=== PATIENT | male | born 1950 | race Caucasian/White ===

== ENCOUNTER 2016-07-04 12:56 | Inpatient (IN) | payer MEDICARE ==
[~2016-07-04] VITALS: Ht 193 cm; Wt 163.6 kg
[~2016-07-04 12:56] MED LIST: ASPIRIN325 MG PO; CARDIZEM CD240 MG PO; CARDIZEM SR90 MG PO; CELEXA40 MG PO; CLEOCIN HCL150 MG PO; CLONAZEPAM2 MG/TAB PO; COLACE100 MG PO; COREG 3.1253.125 MG PO; COUMADIN10 MG PO; ELIQUIS2.5 MG PO; FLOMAX0.4 MG PO; HYDROCODON-ACE1 EAC7 PO; HYDROCODONE-APA1 TAB PO; HYTRIN5 MG PO; LIPITOR20 MG PO; MORPHINE SULFAT15 M4 PO; MS CONTIN15 MG PO; MS CONTIN30 MG PO; NAPROSYN500 MG PO; NEURONTIN 300300 MG PO; OXYCODONE HCL10 MG PO; OXYCODONE HCL5 MG PO; STOOL SOFTENER240 MG PO; TOPROL XL100 MG PO; TRAZODONE HCL50 MG PO; UROCIT-K10 MEQ PO; VANCOMYCIN H1 G/VIA1 IV; VENTOLIN HFA18 GM INH
[2016-07-04 16:45] LABS: BASOPHILS 0.2 % (0.0-2.0); EOSINOPHILS 1.5 % (0-7); HEMATOCRIT 39.1 % (42.0-54.0); HEMOGLOBIN 12.4 g/dL (13.5-17.5); IMMATURE GRANULOCYTES 0.1 % (0-5); LYMPHOCYTES 14.1 % (15-50); MCH 26.7 pg (26.0-34.0); MCHC 31.7 g/dL (31.0-37.0); MCV 84.3 fL (80.0-100.0); MEAN PLATELET VOLUME 9.7 fL (7.4-10.4); NEUTROPHILS 74.1 % (40-80); PLATELET COUNT 249 10x3/uL (130-400); RBC 4.64 10x6/uL (4.20-6.10); RDW 16.6 % (11.5-14.5); WBC 8.6 10x3/uL (4.8-10.8)
[2016-07-04 17:07] LABS: APTT 21.2 SECONDS (22.8-39.4)
[2016-07-04 17:08] LABS: INR 1.08 (0.85-1.17); PROTIME 13.8 SECONDS (11.6-15.0)
[2016-07-04 17:23] LABS: ALBUMIN 4.3 g/dL (3.4-5.0); ALKALINE PHOSPHATASE 103 U/L (46-116); ALT (SGPT) 25 U/L (10-68); BILIRUBIN - TOTAL 0.52 mg/dL (0.2-1.3); CALC OSMOLALITY 278 mosm/kg (275-300); CALCIUM 8.5 mg/dL (8.5-10.1); CARBON DIOXIDE 29.5 mmol/L (21.0-32.0); CHLORIDE - SERUM 102 mmol/L (98-107); CREATININE - SERUM 0.9 mg/dL (0.6-1.3); POTASSIUM - SERUM 4.1 mmol/L (3.5-5.1); PROTEIN - SERUM 7.8 g/dL (6.4-8.2); SODIUM 141 mmol/L (136-145); UREA NITROGEN 11 mg/dL (7-18); eGFR NON AFRICAN AMERICAN 89 mL/min (90-120)
[2016-07-04 17:38] LABS: GLUCOSE 79 mg/dL (74-106)
--- NOTE | 2016-07-04 18:10 | NUR ---
RECIEVED PATIENT VIA WHEELCHAIR. WITH MINIMAL ASSIST PATIENT TRANSFERED FROM THE WHEELCHAIR TO THE BED. PATIENT IS NOT EXPRESSING ANY EVIDENCE OF PAIN, NO FACIAL GRIMMACING. RESPIRATIONS ARE EVEN AND UNLABORED ON ROOM AIR. PATIENT SAT DOWN ON THE SIDE OF THE BED AND STARTED EATING DINNER. INTRODUCED SELF TO PATIENT. ASKED HIM ABOUT HIS PAIN, HE STATED "IT IS STILL ABOUT A 7." PATIENT HAS AN EDUARDO WRAP AROUND RIGHT FOOT AND ANKLE. PATIENT DENIES NEEDS. BED IN LOWEST POSITION, CALL LIGHT IN REACH. BED RAILS UP X'S 2.
[2016-07-04 19:00] VITALS: BP 142/73
--- NOTE | 2016-07-04 19:25 | NUR ---
RECIEVED SHIFT REPORT. PT IS LYING IN BED. ALERT AND ORIENTED AND ABLE TO VERBALIZE NEEDS. IV IS PATENT AND LR RUNNING FROM ER. DRESSING TO RIGHT LOWER LEG C/D/I. PT IS ABLE TO TURN SELF IN BED FOR COMFORT AND SKIN CARE. I INSTRUCTED PT THAT UNTIL HE HAS SEEN THE DOCTOR MAYBE IT WOULD BE BETTER IF HE HAS BEDREST FOR TONIGHT. PT STATES PAIN IS 10/10. PT PROVIDED WITH CLEAN URINAL AND INSTRUCTIONS TO VOID IN IT FOR A SAMPLE TO BE SENT TO THE LAB. VERBALIZED UNDERSTANDING. NO NEEDS ARE VERBALIZED AT THIS TIME. WILL CONTINUE TO MONITOR. SIDE RAILS ARE UP X 2. BED IS IN LOWEST POSITION. CALL LIGHT IS WITHIN REACH.
[2016-07-04 19:38] VITALS: BP 164/89; Ht 193 cm; Wt 163.6 kg
--- NOTE | 2016-07-04 21:00 | NUR ---
SHIFT ASSESSMENT COMPLETED. PT C/O PAIN 02/20. ADMINISTERED PRESCRIBED PRN DILAUDID PER ORDER. DENIES FURTHER NEEDS. WILL MONITOR. SIDE RAILS X 2. BED LOW. CALL LIGHT IN REACH.
--- NOTE | 2016-07-04 21:28 | NUR ---
URINE SENT TO LAB FOR WARRENTED TESTS.
[2016-07-04 22:13] LABS: APPEARANCE CLEAR (CLEAR); BILIRUBIN NEGATIVE (NEGATIVE); COLOR YELLOW (YELLOW); GLUCOSE NEGATIVE (NEGATIVE); KETONE NEGATIVE (NEGATIVE); LEUKOCYTE ESTERASE NEGATIVE (NEGATIVE); NITRITE NEGATIVE (NEGATIVE); PROTEIN NEGATIVE (NEGATIVE); SPECIFIC GRAVITY 1.015 (1.005-1.020); UROBILINOGEN NORMAL (NORMAL)
[2016-07-05] VITALS: BP 139/74
[2016-07-05] MEDS ORDERED: GLUCOPHAGE500 MG PO (00:18)
[2016-07-05 04:00] VITALS: BP 141/80
[2016-07-05 08:15] VITALS: BP 126/60
[2016-07-05] MEDS ORDERED: ELIQUIS2.5 MG PO (08:58)
[2016-07-05 10:48] LABS: BASOPHILS 0.3 % (0.0-2.0); EOSINOPHILS 2.6 % (0-7); HEMATOCRIT 39.2 % (42.0-54.0); HEMOGLOBIN 12.1 g/dL (13.5-17.5); IMMATURE GRANULOCYTES 0.3 % (0-5); MCH 26.6 pg (26.0-34.0); MCHC 30.9 g/dL (31.0-37.0); MCV 86.2 fL (80.0-100.0); MEAN PLATELET VOLUME 9.4 fL (7.4-10.4); MONOCYTES 11.5 % (2-11); NEUTROPHILS 64.3 % (40-80); PLATELET COUNT 206 10x3/uL (130-400); RBC 4.55 10x6/uL (4.20-6.10); RDW 16.8 % (11.5-14.5)
[2016-07-05 10:56] LABS: WBC 5.8 10x3/uL (4.8-10.8)
[2016-07-05 11:13] LABS: ALBUMIN 3.8 g/dL (3.4-5.0); ALKALINE PHOSPHATASE 106 U/L (46-116); ALT (SGPT) 26 U/L (10-68); BILIRUBIN - TOTAL 0.59 mg/dL (0.2-1.3); CALC OSMOLALITY 279 mosm/kg (275-300); CALCIUM 9.1 mg/dL (8.5-10.1); CARBON DIOXIDE 32.6 mmol/L (21.0-32.0); CHLORIDE - SERUM 102 mmol/L (98-107); CREATININE - SERUM 0.9 mg/dL (0.6-1.3); GLUCOSE 118 mg/dL (74-106); POTASSIUM - SERUM 4.1 mmol/L (3.5-5.1); PROTEIN - SERUM 7.4 g/dL (6.4-8.2); SODIUM 140 mmol/L (136-145); UREA NITROGEN 12 mg/dL (7-18); eGFR NON AFRICAN AMERICAN 89 mL/min (90-120)
[2016-07-05 12:26] VITALS: BP 171/74
[2016-07-05 15:40] VITALS: BP 167/92
[2016-07-05 19:00] VITALS: BP 117/66
--- NOTE | 2016-07-05 19:48 | NUR ---
PATIENT RESTING WITH EYES CLOSED. NO SIGNS OF DISTRESS. BED IN LOWEST POSITION AND CALL LIGHT WITHIN REACH.
[2016-07-06] VITALS (12 sets, daily range): BP systolic 105–157; BP diastolic 50–75
--- NOTE | 2016-07-06 00:15 | NUR ---
RECIEVED PT LYING IN BED RESTING WITH EYES CLOSED, SNORING RESP, NO DISTRESS NOTED, SR'X UP X2, CL IN REACH, WILL MONITOR
[2016-07-06 05:42] LABS: BASOPHILS 0.3 % (0.0-2.0); EOSINOPHILS 1.9 % (0-7); HEMATOCRIT 38.3 % (42.0-54.0); HEMOGLOBIN 12.1 g/dL (13.5-17.5); IMMATURE GRANULOCYTES 0.1 % (0-5); LYMPHOCYTES 18.7 % (15-50); MCH 27.3 pg (26.0-34.0); MCHC 31.6 g/dL (31.0-37.0); MCV 86.3 fL (80.0-100.0); MEAN PLATELET VOLUME 9.5 fL (7.4-10.4); MONOCYTES 11.2 % (2-11); NEUTROPHILS 67.8 % (40-80); PLATELET COUNT 223 10x3/uL (130-400); RBC 4.44 10x6/uL (4.20-6.10); RDW 16.4 % (11.5-14.5); WBC 6.9 10x3/uL (4.8-10.8)
[2016-07-06 05:56] LABS: ALBUMIN 3.6 g/dL (3.4-5.0); ALKALINE PHOSPHATASE 109 U/L (46-116); CARBON DIOXIDE 32.8 mmol/L (21.0-32.0); CHLORIDE - SERUM 102 mmol/L (98-107); GLUCOSE 110 mg/dL (74-106); POTASSIUM - SERUM 4.1 mmol/L (3.5-5.1); PROTEIN - SERUM 7.5 g/dL (6.4-8.2); SODIUM 141 mmol/L (136-145); eGFR NON AFRICAN AMERICAN 79 mL/min (90-120)
[2016-07-06 06:00] LABS: ALT (SGPT) 36 U/L (10-68); CALC OSMOLALITY 283 mosm/kg (275-300); UREA NITROGEN 17 mg/dL (7-18)
--- NOTE | 2016-07-06 08:16 | NUR ---
AWAKE AND ALERT. ORIENTED X3. NO C/O AT THIS TIME. LUNGS ARE CLEAR BILATERALLY, NO COUGH NOTED. SKIN IS INTACT WITHOUT REDNESS. IV TO RIGHT HAND IS PATENT WITHOUT REDNESS AT INSERTION SITE. SCD IN PLACE TO LEFT LEG. NEURO CHECKS WNL TO RIGHT FOOT. PATIENT REPORTS HISTORY OF NEUROPATHY. DENIES NEEDS.
--- NOTE | 2016-07-06 09:30 | NUR ---
TOOK AM MEDS WITHOUT DIFFICULTY. VOIDED 200cc TANA URINE IN URINAL. DENIES NEEDS.
--- NOTE | 2016-07-06 12:00 | NUR ---
FSBS 97. NO COVERAGE
--- NOTE | 2016-07-06 13:20 | NUR ---
OFF UNIT VIA BED TO SURGERY.
--- NOTE | 2016-07-06 16:14 | NUR ---
ANESTHESIA CONSULTED ABOUT THE PATIENTS PAIN. DISHCARGE OREDERED FROM RECOVERY AFTER 2 MG OF DILAUDID.
--- NOTE | 2016-07-06 16:20 | NUR ---
RETURNED FROM SURGERY. A/O X3. NO C/O PAIN OR DISCOMFORT AT THIS TIME.
--- NOTE | 2016-07-06 17:00 | NUR ---
FSBS 104. NO COVERAGE REQUIRED.
--- NOTE | 2016-07-06 18:00 | NUR ---
ATE ALL OF SUPPER. DENIES NEEDS. VSS.
--- NOTE | 2016-07-06 20:05 | NUR ---
PATIENT RESTING IN BED AND DENIES NEEDS AT THIS TIME. BED IN LOWEST POSITION AND CALL LIGHT WITHIN REACH.
[2016-07-07 03:00] VITALS: BP 122/56
[2016-07-07 05:19] LABS: ALBUMIN 3.6 g/dL (3.4-5.0); ANION GAP 9.1 mmol/L (8-16); BILIRUBIN - TOTAL 0.64 mg/dL (0.2-1.3); CALCIUM 8.8 mg/dL (8.5-10.1); CARBON DIOXIDE 33.1 mmol/L (21.0-32.0); CREATININE - SERUM 1.1 mg/dL (0.6-1.3); POTASSIUM - SERUM 4.2 mmol/L (3.5-5.1); PROTEIN - SERUM 7.4 g/dL (6.4-8.2)
[2016-07-07 05:20] LABS: BASOPHILS 0.2 % (0.0-2.0); EOSINOPHILS 0.7 % (0-7); HEMATOCRIT 37.2 % (42.0-54.0); HEMOGLOBIN 11.5 g/dL (13.5-17.5); IMMATURE GRANULOCYTES 0.2 % (0-5); LYMPHOCYTES 8.7 % (15-50); MCH 26.6 pg (26.0-34.0); MCHC 30.9 g/dL (31.0-37.0); MCV 85.9 fL (80.0-100.0); MEAN PLATELET VOLUME 9.8 fL (7.4-10.4); NEUTROPHILS 80.2 % (40-80); PLATELET COUNT 217 10x3/uL (130-400); RBC 4.33 10x6/uL (4.20-6.10); RDW 16.1 % (11.5-14.5)
[2016-07-07 05:31] LABS: WBC 9.1 10x3/uL (4.8-10.8)
[2016-07-07 07:51] VITALS: BP 135/74
--- NOTE | 2016-07-07 08:15 | NUR ---
PT. AOx4 RESP. EVEN AND NONLABORED. LUNG SOUNDS CLEAR. PT. DENIES NEEDS AT THIS TIME. SKIN PINK WARM AND DRY WITH GOOD TURGOR SOME NONPITTING EDEMA ON BILATERALL LOWER LEGS. SPLINT AND EDUARDO BANDAGE ON RIGHT FOOT AND ANKLE WITH GOOD CAPILLARY REFILL. SKIN PINK WARM AND DRY WITH GOOD TURGOR NO EDEMA ON UPPER EXTREMITIES. ABDOMEN SOFT NONTENDER AND [id number] BED AT THE LOWEST SETTING. SR X2 CALL LIGHT WITH IN REACH. WILL CONTINUE TO MONITOR.
--- NOTE | 2016-07-07 08:33 | NUR ---
Patient Name: PARESH SANCHEZ Admission Status: ER Accout number: [id number] Admission Date: 07-04-2016 : 1950 Admission Diagnosis:OTH FRACTURE OF UPPER AND LOWER END OF RIGHT FIBULA, IN Attending: SEAN Current LOS: 3 Anticipated DC Date: 07-11-2016 Planned Disposition: Home with Home Health Primary Insurance: [employer] ADV Discharge Planning Comments: CM MET WITH PATIENT REGARDING D/C NEEDS AND PLANS. PATIENT STATED HE LIVES ALONE AND HIS NEIGHBOR (STEFANIA GORDON) WILL DRIVE HIM HOME AT DISCHARGE. PATIENT STATED HE HAS 1 STEP TO ENTER HIS HOME AND NO STAIRS INSIDE. PATIENT STATED HE IS INDEPENDENT WITH HIS CARE AND HAS A WALKER, WHEELCHAIR, SHOWER BENCH, GLUCOMETER (CKS.2X WEEK), AND C-PAP AT HOME. CM SPOKE WITH PATIENT REGARDING CHECKING HIS BS MORE OFTEN. PATIENTS PCP IS DR. ZULETA AND PHARMACY IS [facility] [employer] [facility]. PATIENT IS CURRENT WITH [facility] AND IS CURRENT WITH OP PT AT [facility]. CM WILL CONTINUE TO FOLLOW PATIENT WITH D/C NEEDS AND PLANS. PCP DR. ZULETA [facility] [place] [facility]- [phone] STEFANIA GORDON (NEIGHBOR) [phone] Accounts Receivable Accountant: Jennyterence Obregon Is the patient Alert and Oriented? Yes 0 * How many steps to enter\exit or inside your home? 1 0 * PCP DR. ZULETA 0 * Pharmacy [facility] [place] [facility] 0 * Preadmission Environment Home Alone 0 * ADLs Independent 0 * Equipment CPAP Glucometer Tub Bench Walker Wheelchair 0 * List name and contact numbers for known caregivers / representatives who currently or will assist patient after discharge: STEFANIA GORDON (LEX) [phone] 0 * Community resources currently utilized Home Health Other 0 * Please name any agencies selected above. [facility] AND OP PT [facility] 0 * Additional services required to return to the preadmission environment? Yes 0 * Can the patient safely return to the preadmission environment? Yes 0 * Has this patient been hospitalized within the prior 30 days at any hospital? No 0 Grand Total: 0
--- NOTE | 2016-07-07 08:47 | CN ---
PATIENT NAME:PARESH SANCHEZ MEDICAL RECORD: [id number] : 46 LOCATION:D.[facility] ADMIT DATE: 07/04/16 ACCOUNT: [id number] CONSULTING PHYSICIAN: MARIKA ALVARENGA MD REFERRING PHYSICIAN: JAIDA PIZANO MD DATE OF CONSULTATION: 07/05/2016 Cardiology Consultation DIAGNOSES: 1. Preoperative evaluation. 2. Cardiomyopathy, nonischemic. 3. Paroxysmal atrial fibrillation, on diltiazem. 4. Implantable cardioverter defibrillator. 5. Hypertension. 6. Hyperlipidemia. HISTORY OF PRESENT ILLNESS: This is a gentleman known to us with a past history of cardiomyopathy, previous ejection fraction was in the 30% to 35% range; however, last echocardiogram showed almost total resolution of the cardiomyopathy with ejection fraction of 45% range. He has had no heart failure symptomatology. He did undergo cardiac catheterization; this is a nonischemic cardiomyopathy with no coronary artery disease. He has a history of ICD placed at the time of the lower ejection fraction; last ICD evaluation shows sinus rhythm, no atrial fibrillation, no significant ventricular tachycardia. No treated dysrhythmias. His blood pressure is controlled on Coreg. He remains in sinus rhythm on diltiazem and hyperlipidemia is on atorvastatin. PHYSICAL EXAMINATION: GENERAL APPEARANCE: Well-nourished, well-developed, appears stated age. Level of distress, comfortable. PSYCHIATRIC: Mental status, alert, normal affect. Orientation, oriented to time, place and person. EYES: Lids and conjunctiva, noninjected. No discharge, no pallor. ENT: Lips, teeth, gums, normal dentition. Oropharynx, no cyanosis, no pallor. NECK: Carotid arteries, bilateral normal upstroke, no bruits, no thrills. JUGULAR VEINS: No jugular venous pressure or distention. CERVICAL LYMPH NODES: Nontender, nonenlarged. THYROID: Not enlarged. Nontender. No nodules. LUNGS: Respiratory effort, unlabored. CHEST: Normal curvature. No thoracic deformity. No chest wall tenderness. Percussion, resonant. Auscultation, clear. No wheezes, no rales, no rhonchi. CARDIOVASCULAR: Precordial exam, nondisplaced. No heaves or pericardial thrills. Rate and rhythm, regular. Heart sounds, normal S1, normal S2. No S3, no gallop, no rub. Systolic murmur, not heard. Diastolic murmur, not heard. EXTREMITIES: No cyanosis, no edema. Peripheral pulses, full and equal in all extremities, except as noted. No bruits appreciated. ABDOMEN: Soft, nondistended. Normal aorta. No bruit. Nontender. No masses. Liver, nontender, no hepatomegaly. Spleen, nontender, no splenomegaly. MUSCULOSKELETAL: No joint tenderness. No joint swelling. No erythema. NEUROLOGICAL: Normal gait, normal strength, normal tone. SKIN: Warm and dry. REVIEW OF SYSTEMS: The patient reports easy bruising but reports no swollen glands. The patient reports no fever, no night sweats, no significant weight CONSULT REPORT [id number] PARESH SANCHEZ gain, no significant weight loss. No significant exercise tolerance. The patient reports no dry eyes, no irritation, no vision change. Patient reports no difficulty hearing and no ear pain. Patient reports no frequent nose bleeds or nose and sinus problems. Patient reports on arm pain on exertion. No shortness of breath while lying down. No history of heart murmur. Patient reports no cough, no wheezing or coughing up blood. Patient reports no abdominal pain, no vomiting. Normal appetite. No diarrhea and not vomiting blood. No nausea and no constipation. Patient reports no incontinence. No difficulty urinating. No hematuria. No increased frequency. Patient reports no muscle aches. No weakness, no arthralgias, no back pain. No swelling of the extremities. Patient reports no abnormal mole, no jaundice, no rashes. Reports no loss of consciousness. No weakness and no numbness. No seizures, dizziness, or headaches. The patient reports no depression, no sleep disturbance, feeling safe in a relationship and no alcohol abuse. Patient reports on fatigue. Reports no runny nose or sinus pressure. No itching, no hives, and no frequent sneezing. OVERALL IMPRESSION: Stable cardiac, okay to discontinue his Eliquis. We can lay him off of the Eliquis and restart this as an outpatient. Clear from a cardiac standpoint when no further cardiac workup treatment is necessary. TRANSINT:[id number] Voice Confirmation ID: [id number] DOCUMENT ID: [id number] MARIKA ALVARENGA MD at 0847 CC: [id number] DICTATION DATE: 07/05/16 0951 AUDIOVISUAL EQUIPMENT OPERATOR: 07/05/16 1412 ADM IN [facility] [address] [id number]
--- NOTE | 2016-07-07 09:07 | NUR ---
CM MET WITH PATIENT AND HE SIGNED THE [facility] FORM FOR THE [facility]. REFERRAL HAS BEEN SENT.
[2016-07-07 12:26] VITALS: BP 141/59
[2016-07-07 16:09] VITALS: BP 109/49
--- NOTE | 2016-07-07 18:27 | NUR ---
ATE ALL OF SUPPER. NO C/O AT THIS TIME. DENIES NEEDS. NO CHANGES NOTED.
[2016-07-07 19:00] VITALS: BP 146/66
--- NOTE | 2016-07-07 19:00 | NUR ---
PATIENT IN BED WATCHING TV. HOB 40 DEGREES. AAOX4. RR EVEN AND UNLABORED. 0 S/S OF DISTRESS. STATES PAIN IS A 9/10. INSTRUCTED PATIENT TO USE MANAGER PHILOSOPHY BUTTON. O2 @ 2L VIA NC. IV TO RIGHT HAND PATENT WITH NO REDNESS OR SWELLING. RLE ELEVATED WITH ICE AND DRESSING CDI. TELEMETRY ON. CALL LIGHT WITHIN REACH.
[2016-07-08 04:00] VITALS: BP 143/65
--- NOTE | 2016-07-08 05:40 | NUR ---
PATIENT RUNNING TEMP OF 101. TYLENOL GIVEN PER ORDER. GAVE PATIENT AN IS AND INSTRUCTED HIM ON ITS USAGE.
[2016-07-08 05:47] LABS: BASOPHILS 0.1 % (0.0-2.0); EOSINOPHILS 0.3 % (0-7); HEMATOCRIT 35.2 % (42.0-54.0); HEMOGLOBIN 10.9 g/dL (13.5-17.5); IMMATURE GRANULOCYTES 0.3 % (0-5); LYMPHOCYTES 8.7 % (15-50); MCH 26.8 pg (26.0-34.0); MCV 86.5 fL (80.0-100.0); MEAN PLATELET VOLUME 9.6 fL (7.4-10.4); MONOCYTES 7.2 % (2-11); NEUTROPHILS 83.4 % (40-80); PLATELET COUNT 215 10x3/uL (130-400); RBC 4.07 10x6/uL (4.20-6.10); RDW 15.9 % (11.5-14.5); WBC 7.4 10x3/uL (4.8-10.8)
[2016-07-08 06:06] LABS: ALBUMIN 3.2 g/dL (3.4-5.0); ALKALINE PHOSPHATASE 98 U/L (46-116); ALT (SGPT) 23 U/L (10-68); CALC OSMOLALITY 276 mosm/kg (275-300); CALCIUM 8.6 mg/dL (8.5-10.1); CARBON DIOXIDE 33.1 mmol/L (21.0-32.0); CHLORIDE - SERUM 97 mmol/L (98-107); GLUCOSE 189 mg/dL (74-106); POTASSIUM - SERUM 4.2 mmol/L (3.5-5.1); PROTEIN - SERUM 7.1 g/dL (6.4-8.2); SODIUM 135 mmol/L (136-145); UREA NITROGEN 17 mg/dL (7-18); eGFR NON AFRICAN AMERICAN 79 mL/min (90-120)
--- NOTE | 2016-07-08 07:15 | NUR ---
PATIENT IN BED WITH IV INTACT. NO COMPLAINTS AT THIS TIME. CALL LIGHT WITHIN REACH.
[2016-07-08 08:12] VITALS: BP 132/61
[2016-07-08 11:37] VITALS: BP 136/60
[2016-07-08 15:07] VITALS: BP 112/58
--- NOTE | 2016-07-08 19:00 | NUR ---
PATIENT SLEEPING WITH NO DISTRESS NOTED. RR EVEN AND UNLABORD. O2 @ 2 VIA NC. AROUSES TO VOICE. STATES PAIN IS AN 8/10. IV TO RIGHT HAND PATENT WITH NO REDNESS OR SWELLING. DRESSING TO RIGHT FOOT CDI. TELEMETRY ON. SRX2. BED LOW. CALL LIGHT WITHIN REACH.
[2016-07-08 21:58] VITALS: BP 119/56
--- NOTE | 2016-07-09 00:30 | NUR ---
TYLENOL GIVEN FOR TEMP. WILL REASSESS.
[2016-07-09 04:57] LABS: BASOPHILS 0.2 % (0.0-2.0); EOSINOPHILS 2.6 % (0-7); HEMATOCRIT 36.3 % (42.0-54.0); HEMOGLOBIN 10.9 g/dL (13.5-17.5); IMMATURE GRANULOCYTES 0.3 % (0-5); LYMPHOCYTES 12.8 % (15-50); MCH 26.5 pg (26.0-34.0); MCV 88.3 fL (80.0-100.0); MEAN PLATELET VOLUME 9.6 fL (7.4-10.4); MONOCYTES 11.7 % (2-11); NEUTROPHILS 72.4 % (40-80); PLATELET COUNT 196 10x3/uL (130-400); RBC 4.11 10x6/uL (4.20-6.10); RDW 15.8 % (11.5-14.5); WBC 6.6 10x3/uL (4.8-10.8)
[2016-07-09 05:00] VITALS: BP 122/65
[2016-07-09 05:20] LABS: ALBUMIN 3.1 g/dL (3.4-5.0); ALKALINE PHOSPHATASE 86 U/L (46-116); ALT (SGPT) 21 U/L (10-68); BILIRUBIN - TOTAL 0.35 mg/dL (0.2-1.3); CALC OSMOLALITY 285 mosm/kg (275-300); CALCIUM 8.8 mg/dL (8.5-10.1); CARBON DIOXIDE 35.1 mmol/L (21.0-32.0); CHLORIDE - SERUM 103 mmol/L (98-107); CREATININE - SERUM 0.9 mg/dL (0.6-1.3); GLUCOSE 161 mg/dL (74-106); POTASSIUM - SERUM 4.4 mmol/L (3.5-5.1); SODIUM 141 mmol/L (136-145); UREA NITROGEN 17 mg/dL (7-18); eGFR NON AFRICAN AMERICAN 89 mL/min (90-120)
--- NOTE | 2016-07-09 08:07 | NUR ---
PT REC'D FROM [facility]. RESTING IN BED WITH EYES CLOSED. NO SIGNS OF DISTRESS. RESP EVEN AND UNLABORED. NC ON DELIVERING 2L O2. R FOOT ELEVATED. CONTANCT ISOLATION PROTOCOLS IN USE. BED LOW, CALL LIGHT IN REACH, WILL CPOC.
[2016-07-09 08:37] VITALS: BP 154/74
--- NOTE | 2016-07-09 09:05 | NUR ---
MORNING MEDS PASSED AT THIS TIME. BREAKFAST TRAY IN ROOM. BED LOW, CALL LIGHT IN REACH, DENIES NEEDS.
--- NOTE | 2016-07-09 10:01 | NUR ---
ALERTED BY LINDA PHYSICAL THERAPIST, THAT PT IS NOW ABLE TO TRANSFER TO BSC WITH ASSISTANCE FROM STAFF.
[2016-07-09 12:00] VITALS: BP 131/77
--- NOTE | 2016-07-09 12:14 | NUR ---
CURRENT FSBS 141. NO INSULIN ADMINISTERED PER SS. FRIEND IN ROOM. BED LOW, CALL LIGHT IN REACH, ASSISTED WITH LUNCH TRAY SET UP. DENIES NEEDS.
--- NOTE | 2016-07-09 14:00 | NUR ---
FAMILY AT BEDSIDE QUIET IN ROOM AT PRESENT N/C VOICED AT PRESENT.
[2016-07-09 15:58] VITALS: BP 124/68
--- NOTE | 2016-07-09 19:00 | NUR ---
PLATIENT SLEEPING SUPINE IN BED. HOB 20 DEGREES. AROUSES TO VOICE. RR EVEN AND UNLABORED. O2 @ 2L VIA NC. 0 S/S OF DISTRESS. STATES PAIN IS A 9/10. IV TO RIGHT HAND PATENT WITH NO REDNESS OR SWELLING. RLE ELEVATED WITH BANDAGE CDI. TELEMETRY ON. SRX2. BED LOW. CALL LIGHT WITHIN REACH.
[2016-07-09 21:00] VITALS: BP 171/71
--- NOTE | 2016-07-09 22:10 | NUR ---
ASSESSMENT COMPLETE. NIGHTTIME MEDS GIVEN. NO OTHER NEEDS AT THIS TIME.
[2016-07-10 01:00] VITALS: BP 120/69
--- NOTE | 2016-07-10 03:00 | NUR ---
PATIENT SLEEPING WITH NO DISTRESS NOTED. CALL LIGHT WITHIN REACH.
[2016-07-10 05:00] VITALS: BP 123/77
[2016-07-10 05:35] LABS: BASOPHILS 0.7 % (0.0-2.0); EOSINOPHILS 3.6 % (0-7); HEMATOCRIT 36.6 % (42.0-54.0); IMMATURE GRANULOCYTES 0.2 % (0-5); LYMPHOCYTES 20.8 % (15-50); MCH 26.5 pg (26.0-34.0); MCHC 30.1 g/dL (31.0-37.0); MCV 88.2 fL (80.0-100.0); MEAN PLATELET VOLUME 9.7 fL (7.4-10.4); MONOCYTES 10.4 % (2-11); NEUTROPHILS 64.3 % (40-80); PLATELET COUNT 228 10x3/uL (130-400); RBC 4.15 10x6/uL (4.20-6.10); WBC 5.9 10x3/uL (4.8-10.8)
[2016-07-10 06:08] LABS: ALBUMIN 3.1 g/dL (3.4-5.0); ALKALINE PHOSPHATASE 92 U/L (46-116); BILIRUBIN - TOTAL 0.35 mg/dL (0.2-1.3); CALC OSMOLALITY 289 mosm/kg (275-300); CALCIUM 8.8 mg/dL (8.5-10.1); CARBON DIOXIDE 34.2 mmol/L (21.0-32.0); CHLORIDE - SERUM 104 mmol/L (98-107); CREATININE - SERUM 0.8 mg/dL (0.6-1.3); GLUCOSE 149 mg/dL (74-106); POTASSIUM - SERUM 4.3 mmol/L (3.5-5.1); PROTEIN - SERUM 7.1 g/dL (6.4-8.2); SODIUM 143 mmol/L (136-145); UREA NITROGEN 19 mg/dL (7-18); eGFR NON AFRICAN AMERICAN > 90 mL/min (90-120)
[2016-07-10 06:26] LABS: ALT (SGPT) 34 U/L (10-68)
[2016-07-10 07:56] VITALS: BP 125/70
--- NOTE | 2016-07-10 09:03 | NUR ---
PT AWAKE AND ALERT ORIENTED X 3 LUNGS WITH DIMINISHED BASES BILATERALLY NO ACUTE DISTRESS NOTED VOICES ALL NEED TO STAFF CALL LIGHT IN REACH SIDE RAILS UP X 2 SURGICAL DRESSING INTACT TO RIGHT FOOT TOES PINK AND WARM. WILL MONITOR.
--- NOTE | 2016-07-10 09:50 | NUR ---
PATIENT IN HIGH [place] POSITION RESTING WITH EYES CLOSED. RESPIRATIONS EVEN AND UNLABORED. SIDE RAILS UP X2. BED IN LOW POSITION. CALL LIGHT IN REACH.
--- NOTE | 2016-07-10 11:00 | NUR ---
NO ACUTE DISTRESS NTOED TOLERATED MEDS WELL PT RONNAEIS NEEDS AT THIS TIME CALL LIGHT IN REACH SIDE RAILS UP X 2 REMAINS IN CONTACT ISOLATION FOR VRE TO URINE.
--- NOTE | 2016-07-10 11:07 | OP ---
PATIENT NAME: PARESH SANCHEZ MEDICAL RECORD: [id number] :48 LOCATION:D.MS [facility] ADMISSION DATE:07/04/16 SURGEON: JAIDA PIZANO MD DATE OF OPERATION: 07/06/2016 Orthopedic Surgery Operative Note PREOPERATIVE DIAGNOSIS: Bimalleolar ankle fracture of the right ankle. POSTOPERATIVE DIAGNOSIS: Bimalleolar ankle fracture of the right ankle. PROCEDURE: Open reduction internal fixation of right bimalleolar ankle fracture. SURGEON: Jaida Pizano MD. ANESTHESIA: General. INTRAOPERATIVE COMPLICATIONS: None. SUMMARY OF PATHOLOGIC FINDINGS: The patient had a medial and lateral malleolus fracture. There was some bone loss on the medial aspect of the medial malleolus; however, the articular aspect was in relatively good position. The patient had a fracture of the lateral malleolus that required internal fixation as well. OPERATIVE SUMMARY IN DETAIL: After obtaining the appropriate preoperative orthopedic surgery consent as well as anesthetic consultation, evaluation and clearance, the patient was sent to the operating table in supine position. After adequate general laryngeal mask was administered, tourniquet was placed about the proximal aspect of the right lower extremity. Right lower extremity was then prepped and draped in routine sterile fashion. The leg was elevated and exsanguinated, tourniquet inflated to 350 mmHg. Attention was first turned to the medial malleolus. Incision was made over the medial malleolus and down to the tip, taken down to the level of the fracture where copious amounts of fracture hematoma were removed and irrigated out by using both irrigation and a curette. Reduction maneuver was performed and the guidewire for the cannulated screw system was placed across the fracture. A 46-mm compression screw was then placed as this was a very distal inferior colliculus type fracture only 1 screw was placed. It was placed; however, in good compression. Having completed this, attention was turned to the lateral malleolus and incision was made along the fibula, taken down to the level of the periosteum, which was elevated. The fracture was exposed. Hematoma was removed. The fracture was then reduced using a fracture reduction clamp. It was provisionally pinned with 0.062 K-wires and then the [place] VariAx distal fibular plate was utilized and then a combination of both locking and nonlocking screws were utilized for fixation. This was done under fluoroscopic guidance. AP and lateral planes showed good fixation of both the lateral and medial malleolus. Wound was copiously irrigated on both sides, closed with #1 Vicryl and followed by 2-0 Vicryl and skin wade. Sterile dressings were applied. Tourniquet was deflated. L&U splint was applied. The patient was awakened, taken to recovery room in stable condition. All final needle and sponge counts were correct. TRANSINT:[id number] Voice Confirmation ID: [id number] DOCUMENT ID: [id number] OPERATIVE REPORT [id number] PARESH SANCHEZ MD, JAIDA ROY at 1107 CC: [id number] DICTATION DATE: 07/06/16 165 BOILER MAKER: 07/06/16 [address] [facility] [address] [place] [address]
[2016-07-10 12:42] VITALS: BP 126/68
[2016-07-10 16:07] VITALS: BP 113/67
--- NOTE | 2016-07-10 18:51 | NUR ---
PT WITH NO ACUTE DISTRESS SON VISITING AT BEDSIDE REMAINS IN CONTACT ISOLATION
--- NOTE | 2016-07-10 19:57 | NUR ---
PATIENT RESTING IN BED AND DENIES NEEDS AT THIS TIME. BED IN LOWEST POSITION AND CALL LIGHT WITHIN REACH.
[2016-07-10 21:00] VITALS: BP 132/58
[2016-07-11 01:00] VITALS: BP 148/60
[2016-07-11 05:00] VITALS: BP 155/84
--- NOTE | 2016-07-11 07:55 | NUR ---
pt assessment complete awake and alert to verbal stimuli orinetd x 3 lungs with diminished bases no acute distress noted does compl;ain of pain 6/10 requested and recieved norco for pain per order will montor effectiveness call light in reach side rails up x 2
[2016-07-11] MEDS ORDERED: HYDROCODONE-APA1 TAB PO (08:18)
[2016-07-11 08:19] VITALS: BP 125/58
--- NOTE | 2016-07-11 10:30 | NUR ---
CM REASSESSMENT NOTE: PATIENT WILL DISCHARGE TO THE [facility] TODAY BY FACILITY VAN AROUND 12 O'CLOCK NOON PER FACILITY LIASON ([facility]).
--- NOTE | 2016-07-11 10:30 | NUR ---
PATIENT ALERT IN HIGH TOMLIN POSITION. NO SIGNS OF DISTRESS NOTED. SIDE RAILS UP X2. BED IN LOW POSITION. CALL LIGHT IN REACH.
[2016-07-11 11:04] LABS: BASOPHILS 0.3 % (0.0-2.0); EOSINOPHILS 2.9 % (0-7); HEMATOCRIT 37.1 % (42.0-54.0); HEMOGLOBIN 11.3 g/dL (13.5-17.5); IMMATURE GRANULOCYTES 0.2 % (0-5); LYMPHOCYTES 14.8 % (15-50); MCH 26.6 pg (26.0-34.0); MCHC 30.5 g/dL (31.0-37.0); MCV 87.3 fL (80.0-100.0); MEAN PLATELET VOLUME 9.3 fL (7.4-10.4); MONOCYTES 8.7 % (2-11); NEUTROPHILS 73.1 % (40-80); PLATELET COUNT 235 10x3/uL (130-400); RBC 4.25 10x6/uL (4.20-6.10); RDW 15.8 % (11.5-14.5); WBC 5.9 10x3/uL (4.8-10.8)
[2016-07-11 11:21] LABS: ALBUMIN 3.2 g/dL (3.4-5.0); ALKALINE PHOSPHATASE 100 U/L (46-116); ALT (SGPT) 33 U/L (10-68); BILIRUBIN - TOTAL 0.57 mg/dL (0.2-1.3); CALC OSMOLALITY 282 mosm/kg (275-300); CALCIUM 9.2 mg/dL (8.5-10.1); CARBON DIOXIDE 36.6 mmol/L (21.0-32.0); CHLORIDE - SERUM 99 mmol/L (98-107); CREATININE - SERUM 0.9 mg/dL (0.6-1.3); GLUCOSE 135 mg/dL (74-106); POTASSIUM - SERUM 4.2 mmol/L (3.5-5.1); PROTEIN - SERUM 7.3 g/dL (6.4-8.2); SODIUM 140 mmol/L (136-145); UREA NITROGEN 18 mg/dL (7-18); eGFR NON AFRICAN AMERICAN 89 mL/min (90-120)
[2016-07-11 11:46] VITALS: BP 130/62
--- NOTE | 2016-07-11 13:21 | NUR ---
REPORT CALLED TO LISA ARITA AT [facility] NR DISCHARGE INSTRUCTIONS SENT WITH PT PER DISCHARGE PRODUCTION SUPPORT ANALYST PIV DISCONTINUED WITH TIP IN TACT NO BLEEDING NOTED.
== END 2016-07-11 13:22 | DRG 493 ==
LOC: D.ER 12:56 → D.MS 17:04
PROVIDERS: Emergency Medicine; Family Medicine; Nurse Practitioner Acute Care; ADMIT Orthopaedic Surgery
PROC: 0QSG04Z Reposition Right Tibia with Internal Fixation Device, Open Approach (ICD-10-PCS; 2016-07-06)
PROC: 0QSJ04Z Reposition Right Fibula with Internal Fixation Device, Open Approach (ICD-10-PCS; principal; 2016-07-06 11:45)
DX: S82.831A Other fracture of upper and lower end of right fibula, initial encounter for closed fracture (principal); D62 Acute posthemorrhagic anemia; I42.9 Cardiomyopathy, unspecified; R78.81 Bacteremia; S82.51XA Displaced fracture of medial malleolus of right tibia, initial encounter for closed fracture; W01.0XXA Fall on same level from slipping, tripping and stumbling without subsequent striking against object, initial encounter; G47.33 Obstructive sleep apnea (adult) (pediatric); E11.40 Type 2 diabetes mellitus with diabetic neuropathy, unspecified; I10 Essential (primary) hypertension; E78.5 Hyperlipidemia, unspecified; Z95.810 Presence of automatic (implantable) cardiac defibrillator; Z86.73 Personal history of transient ischemic attack (TIA), and cerebral infarction without residual deficits; Z85.46 Personal history of malignant neoplasm of prostate

== ENCOUNTER → 2017-07-10 08:32 | Outpatient (CLI) | payer MEDICARE ==
[2016-07-04 19:38] VITALS: BMI 43.9
[~2017-07-10 08:32] MED LIST changes: +CARAFATE1 G/10 ML PO; +GLUCOPHAGE500 MG PO; +PROTONIX40 MG PO
== END | disposition home or self-care (01) ==
LOC: D.CT 08:32
DX: R31.9 Hematuria, unspecified (principal)

== ENCOUNTER → 2017-07-31 10:12 | Outpatient (CLI) | payer MEDICARE ==
[2016-07-04 19:38] VITALS: BMI 43.9
== END | disposition home or self-care (01) ==
LOC: D.RAD 10:12
DX: N20.0 Calculus of kidney (principal)

== ENCOUNTER 2017-08-15 08:33 | Inpatient (IN) | payer MEDICARE ==
[~2017-08-15] VITALS: Ht 193 cm; Wt 171.9 kg
--- NOTE | ~2017-08-15 | OP ---
PATIENT NAME: PARESH SANCHEZ MEDICAL RECORD: [id number] :48 LOCATION:D.MS [facility] ADMISSION DATE: SURGEON: GREGG ARAMBULA MD DATE OF OPERATION: 08/15/2017 SURGEON: Gregg Arambula MD ANESTHESIA: General anesthesia by Ric Sandoval MD PREOPERATIVE DIAGNOSIS: Right renal stones, 8+5+4 mm. POSTOPERATIVE DIAGNOSIS: Right renal stones, 8+5+4 millimeters. PROCEDURE: Cystoscopy, right percutaneous nephrolithotomy. FINDINGS: Radiolucent renal stones. SPECIMENS: Right renal stones. ESTIMATED BLOOD LOSS: Minimal. CLINICAL HISTORY: This is a 66-year-old male with a previous history of kidney stones. He had a ureteral stone treated in [place] and the stone analysis showed that it was 60% uric acid and 35% calcium oxalate. He was put on potassium citrate to prevent stone recurrence at that time, but that medication has since run out. He comes now with episodes of right flank pain and gross hematuria for over [address] scan of the abdomen and pelvis shows renal cysts as well as at least 2 renal stones, 8 and 5 mm within the right kidney. There is no hydronephrosis on the CT scan. Nevertheless, the patient continues to complain of severe right flank pain for which he is taking Derby 10/325. He has a previous history of diabetes mellitus type 2, atrial fibrillation for which he is on Coumadin. He has a defibrillator pacemaker also. He has also had a stroke and a previous LA as well as bilateral knee replacements. He has diabetes with peripheral neuropathy and hypertension. He was also a former smoker while he was in [place]. We obtained cardiac clearance from Dr. Armstrong to hold his Coumadin. He comes today to have a percutaneous nephrolithotomy. On KUB, the stone can possibly be seen, but when we performed fluoroscopy, they are not visible at all. Therefore, I cannot target his stone for lithotripsy. Earlier today, he went to interventional radiology and a right nephroureteral access tube was placed. He is not allergic to any medication and at that time, he received ampicillin and sulbactam. Because he received that antibiotic, we did not give him any further antibiotics. DESCRIPTION OF PROCEDURE: The patient was on the stretcher in supine position. He was given induction of general anesthesia. We put his legs into frog-leg position and performed cystoscopy using a 21-Setswana cystoscope with 30-degree lens. He was prepped and draped. Urethra is normal. Prostate is enlarged and obstructive. It is quite vascular also. We went into the bladder. Due to the recent procedure, the urine was quite murky with blood. I could not visualize the entire bladder. We visualized the nephroureteral stent. The distal end of the stent was grasped using graspers and pulled out through the penile meatus. We were then able to turn the patient into the prone position on the Nic frame. He was prepped and draped. The nephroureteral access catheter had an Amplatz Super Stiff wire placed into its lumen. This wire then came out through the penile urethral meatus. The circulating nurse then put a hemostat on this OPERATIVE REPORT [id number] PARESH SANCHEZ to prevent loss of the tract access by backwards migration of the wire. The nephroureteral catheter was then completely removed by pulling it in retrograde fashion up through the kidney. A small incision was made on either side of the Super Stiff wire. The dual lumen catheter was then inserted. Under fluoroscopic guidance, the dual lumen catheter went into the proximal ureter. Through the second lumen of the dual lumen catheter, we inserted a Sensor wire. The sensor wire coiled up in the bladder. With the 2 wires in correct position, the dual lumen catheter was removed. The Sensor wire was clamped to the drapes to serve as a safety wire. We worked over the Super Stiff wire. A NephroMax balloon dilator was then inserted over the Super Stiff wire. We positioned the tip of the balloon to be within the renal pelvis. The balloon was inflated to 16 atmospheres of pressure and then the working sheath, which has the circumference of 30-Setswana was placed down over the balloon into the renal pelvis. The balloon was then completely deflated and removed entirely. The nephroscope was placed within the renal pelvis. We could immediately encounter the stones. The [employer] LithoClast ultrasonic modality was used to remove blood clots within the renal pelvis. A Cook Lzlc-K-Ynzalg of stone retrieval basket was used to remove 3 large stones. They are about 8, 5, and 4 mm in size. The smaller tiny little stones were vacuumed out using the LithoClast ultrasonic modality. Finally, on nephroscopy, we could see no further stones. The stones were never visible on fluoroscopy. The scope was then removed. Over the Super Stiff wire, we inserted a 24-Setswana nephrostomy tube, which is the Malecot catheter. Once the Malecot was in correct position, the safety wire was entirely removed. The working sheath was removed entirely. The stylet of the Malecot catheter was removed to allow the wings of the Malecot to expand within the renal pelvis. The Super Stiff wire was withdrawn by pulling it out completely through the penile meatus. The nephrostomy tube was sutured to the skin using a 2-0 nylon. It was then put to bag drainage and dressings were applied to the nephrostomy tube site. The patient was awakened and brought to the recovery room. I will put him in for observation overnight. TRANSINT:[id number] Voice Confirmation ID: [id number] DOCUMENT ID: [id number] GREGG ARAMBULA MD at 1917 CC: [id number] DICTATION DATE: 08/15/17 1637 SENIOR REPORT DEVELOPER: 08/15/17 1726 [facility] [address] [id number]
--- NOTE | ~2017-08-15 | HEMODYNAMI ---
PATIENT:PARESH SANCHEZ MEDICAL RECORD: [id number] : 46 LOCATION:[facility] ADMISSION DATE: 08/15/17 Generatedon:08/15/201711:48 Patient name: PARESH SANCHEZ Patient #: [id number] SSN: : 1950 Date of study: 08/15/2017 Page: Of Hemodynamic Procedure Report Patient Data Patient Demographics Procedure consent was obtained First Name: PARESH Gender: Male Last Name: DANIEL : 1950 [facility] Initial: NIYA Age: 66 year(s) Patient #: [id number] Race: Additional ID: [id number] Contact details Address: [address] [place] [address] State: [place] City: [facility] Zip code: [address] Past Medical History Allergies: No known allergies Admission Admission Data Admission Date: 08/15/2017 Admission Time: 8:33 Procedure Procedure Types Cath Procedure Peripheral Cath Diagnostic Procedure Cath Peripheral Nephro Perc Neph Uret Cath Procedure Description Procedure Date Procedure Date: 08/15/2017 Procedure Start Time: 11:01 Procedure Staff Name Function Addie Sagastume RT Housing Management Officer Addie Sagastume RT Monitor Ciro Villalobos RT Scrub Alexis Foy MD Performing Physician Tressa Retana RN Nurse Procedure Data Cath Procedure Fluoroscopy Diagnostic fluoroscopy Total fluoroscopy Time: 5.2 time: 5.2 min min Diagnostic fluoroscopy Total fluoroscopy dose: 269 dose: 269 mGy mGy Contrast Material Contrast Material Type Amount (ml) Isovue 300 25 Procedure Medications Medication Administration Route Dosage Versed I.V. 2 mg Fentanyl I.V. 50 mcg Versed I.V. 2 mg Fentanyl I.V. 50 mcg Fentanyl I.V. 50 mcg Heparin Flush Bag added to field 1 bags (1000units/500ml NS) Lidocaine 1% added to field 20 Oxygen etCO2 Nasal cannula 2 l/min Hemodynamics Rest Heart Rate: 99 (bpm) Snapshots Pre Cath Intra NCS Post Cath Vital Signs Time Heart Resp SPO2 etCO2 NIBP (mmHg) Rhythm Pain Sedation Rate (ipm) (%) (mmHg) Status Level (bpm) 10:52:04 85 21 98 38.7 190/121(144) A-Fib 0 (11) 10(A) , No pain 10:57:04 99 17 98 40.2 Measuring A-Fib 0 (11) 10(A) , No pain 10:58:07 106 19 98 34.9 183/117(143) A-Fib 0 (11) 10(A) , No pain 11:03:02 123 27 96 33.4 186/104(158) A-Fib 0 (11) 10(A) , No pain 11:07:55 106 11 96 44.8 165/98(113) A-Fib 0 (11) 8(A) , No pain 11:12:54 101 12 91 49.3 Measuring A-Fib 0 (11) 8(A) , No pain 11:14:18 109 18 93 53.1 Time A-Fib 0 (11) 8(A) Exceeded , No pain 11:16:29 95 11 92 25 175/109(146) A-Fib 0 (11) 8(A) , No pain 11:21:16 109 12 94 54.6 169/109(148) A-Fib 0 (11) 8(A) , No pain 11:26:15 102 35 95 54.6 Measuring A-Fib 0 (11) 8(A) , No pain 11:27:37 110 17 96 50.8 Time A-Fib 0 (11) 8(A) Exceeded , No pain 11:32:36 110 14 96 47 Measuring A-Fib 0 (11) 8(A) , No pain 11:32:46 100 14 97 50.1 177/110(142) A-Fib 0 (11) 8(A) , No pain 11:36:46 96 49.3 No Cuff A-Fib 0 (11) 8(A) , No pain Medications Time Medication Route Dose Verified Delivered Reason Notes Effec tiveness by by 11:03:30 Versed I.V. 2 mg Alexis Bustillos for Fully awake @ MD Mazin BREWSTER sedation 11:06:12 11:03:40 Fentanyl I.V. 50 Alexis Bustillos for Fully awake @ mcg MD Mazin BREWSTER sedation 11:06:15 11:06:33 Versed I.V. 2 mg M J Long Tressa for Dozin g MD Retana RN sedation intermittently @ 11:12:54 11:06:43 Fentanyl I.V. 50 M J Long Tressa for Dozin g mcg MD Retana RN sedation intermittently @ 11:12:51 11:10:08 Fentanyl I.V. 50 M J Long Tressa for l y mcg MD Retana RN sedation sleeping @ 11:12:46 11:20:09 Lidocaine 1% added 20ml M J Long Tressa Per to vial MD Retana RN protocol field 11:20:37 Oxygen etCO2 2 M J Long Tressa Per Nasal l/min MD Retana RN protocol cannula 11:20:51 Heparin Flush added 1 M J Long Tressa Per Bag to bags MD Retana RN protocol (1000units/500ml field NS) Procedure Log Time Note 8:48:56 Use device set IR Diagnostic 10:38:34 Time tracking: Regular hours 10:38:43 Plan of Care:Hemodynamics will remain stable., Cardiac rhythm will remain stable., Comfort level will be maintained., Respiratory function will remain adequate., Patient/ family verbilizes understanding of procedure., Procedure tolerated without complication., Recovers from procedure without complications.. 10:38:51 Patient received from Outpatients to IR Alert and oriented. Tansferred to table in Prone position. 10:38:53 Correct patient and procedure confirmed by team. 10:38:55 Signed procedure consent form obtained from patient. 10:39:09 H&P Date Dictated: 08/15/2017 Within 30 days and on chart.. 10:39:10 Pre-procedure instructions explained to patient. 10:39:11 Pre-op teaching completed and patient verbalized understanding. 10:39:13 Family in waiting room. 10:39:19 Patient NPO since Midnight. 10:39:34 Patient allergic to No known allergies 10:39:37 Is the patient allergic to Iodine/contrast media? No. 10:39:41 Is patient on blood thinner?Yes 10:39:49 ACC The patient was administered the following blood thiners Coumadin, off for 2weeks 10:40:39 Patient diabetic? Yes. 10:40:42 If diabetic: On Metformin? Yes 10:40:45 - 10:40:46 ----Pre-sedation anethsthesia assessment.---- 10:40:50 Previous problem with sedation/anesthesia? No ? 10:40:52 Snore? Yes 10:40:54 Sleep apnea? Yes 10:40:59 Deviated septum? No 10:41:02 Opens mouth fully? Yes 10:41:04 Sticks out tongue? Yes 10:41:07 Airway obstruction? No ? 10:41:12 Dentures? Yes out 10:41:15 - 10:41:24 IV patent on arrival in right wrist with D5/.45%NaCl at KVO. 10:41:43 Right renal area was prepped with chlora-prep and draped in sterile fashion 10:42:07 - 10:42:26 Tegaderm 4 x 4 ([id number]) opened to sterile field. 10:42:27 Sterile Angiographic Pack opened to sterile field. 10:42:28 Bag Decanter () opened to sterile field. 10:42:42 GLIDE CATHETER 5FR STRAIGHT 65cm (CG505) opened to sterile field. 10:42:51 KIT, INTRODUCER ACCUSTICK II W/C ([id number]) opened to sterile field. 10:50:40 Vital chart was started 10:50:45 ECG and BP/O2 sat monitors applied to patient. 10:50:46 Baseline sample Acquired. 10:50:47 Full Disclosure recording started 10:50:48 - :17 Physician arrived 11:00:19 Final Timeout: patient, procedure, and site verified with staff and physician. All members of the team are in agreement. :19 --------ALL STOP TIME OUT------ 11::06 Procedure started. ::17 Local anesthetic to Abdominal area with Lidocaine 1% by Alexis Foy MD.INITIAL ACCESS ONLY 11:03:30 Versed 2 mg I.V. was administered by Tressa Retana RN; for sedation; ::40 Fentanyl 50 mcg I.V. was administered by Tressa Retana RN; for sedation; 11:06:12 Effectiveness of Versed delivered @ 11:03:30 is: Fully awake 11:06:15 Effectiveness of Fentanyl delivered @ 11:03:40 is: Fully awake 11::33 Versed 2 mg I.V. was administered by Tressa Retana RN; for sedation; ::43 Fentanyl 50 mcg I.V. was administered by Tressa Retana RN; for sedation; ::08 Fentanyl 50 mcg I.V. was administered by Tressa Retana RN; for sedation; 11:12:46 Effectiveness of Fentanyl delivered @ :10:08 is: Mostly sleeping :12:51 Effectiveness of Fentanyl delivered @ 11:06:43 is: Dozing intermittentl y 11:12:54 Effectiveness of Versed delivered @ 11:06:33 is: Dozing intermittently 11:20:09 Lidocaine 1% 20ml vial added to field was administered by Tressa Retana RN; Per protocol; :20:37 Oxygen 2 l/min etCO2 Nasal cannula was administered by Tressa Retana RN; Per protocol; :20:51 Heparin Flush Bag (1000units/500ml NS) 1 bags added to field was administered by Tressa Retana RN; Per protocol; :24:40 GLIDE WIRE ANGLE 180cm ([id number]) opened to sterile field. 11:24:52 TORQUE DEVICE PLASTIC .038 ( TD01) opened to sterile field. 11:29:27 Procedure ended.(Physican Out) 11:30:00 Fluoroscopy time 05.20 minutes. 11:30:09 Fluoroscopy dose: 269 mGy 11:30:09 Flurop Dose total: 269 11:30:16 Contrast amount:Isovue 300 25ml. 11:30:21 Procedure and supply charges have been captured, reviewed, submitted an d are correct. 11:38:34 Vital chart was stopped 11:38:39 Full Disclosure recording stopped Device Usage Item Name Manufacture Quantity Catalog Hospital Part Current Minimal Lot# / Number Charge Number Stock Stock Serial# Code Tegaderm 4 x 3M 1 [id number] 5 4 (1626W) Sterile Cardinal 1 [id number] 738963 707351 5 Angiographic Health Pack Bag Decanter Microtek 1 2001S 561461 93969 [id number] 5 (2001S) Medical Inc. GLIDE Terumo 1 CG505 305376 377958 5 CATHETER 5FR STRAIGHT 65cm (CG505) KIT, Newton Hamilton 1 [id number] 597068 606612 853356 5 INTRODUCER Scientific ACCUSTICK II W/C ([id number]) GLIDE WIRE Terumo 1 [id number] 364743 987418 792375 5 ANGLE 180cm (EH4236) TORQUE Newton Hamilton 1 TD01 917355 443761 918012 5 DEVICE Scientific PLASTIC .038 ( TD01) Signature Audit Peggs Stage Time Signature Unsigned Intra-Procedure 08/15/[address] [facility] RT 11:38:31 AM RT(R) (R) (CV) 08/15/2017 11:44:11 AM Intra-Procedure 08/15/2017 Addie Sagastume 11:47:57 AM RT(R) Signatures Monitor : Addie Sagastume RT Signature : Date : Time : [facility] [address] [place] [address]
[~2017-08-15 08:33] MED LIST changes: -CARAFATE1 G/10 ML PO; -PROTONIX40 MG PO
[2017-08-15 09:12] VITALS: BP 164/86; BMI 46.2
[2017-08-15 10:15] LABS: CALC OSMOLALITY 278 mosm/kg (275-300); CALCIUM 8.3 mg/dL (8.5-10.1); CARBON DIOXIDE 29.8 mmol/L (21.0-32.0); CHLORIDE - SERUM 105 mmol/L (98-107); CREATININE - SERUM 0.9 mg/dL (0.6-1.3); GLUCOSE 98 mg/dL (74-106); POTASSIUM - SERUM 3.8 mmol/L (3.5-5.1); SODIUM 139 mmol/L (136-145); UREA NITROGEN 16 mg/dL (7-18); eGFR NON AFRICAN AMERICAN 89 mL/min (90-120)
[2017-08-15 10:23] LABS: APTT 28.2 SECONDS (22.8-39.4); INR 1.18 (0.85-1.17); PROTIME 14.6 SECONDS (11.6-15.0)
[2017-08-15 10:32] LABS: BASOPHILS 0.3 % (0-2); EOSINOPHILS 3.5 % (0-7); HEMATOCRIT 36.9 % (42.0-54.0); HEMOGLOBIN 11.5 g/dL (13.5-17.5); IMMATURE GRANULOCYTES 0.2 % (0-5); LYMPHOCYTES 15.5 % (15-50); MCH 26.7 pg (26.0-34.0); MCHC 31.2 g/dL (31.0-37.0); MCV 85.6 fL (80.0-100.0); MEAN PLATELET VOLUME 9.6 fL (7.4-10.4); MONOCYTES 6.9 % (2-11); NEUTROPHILS 73.6 % (40-80); PLATELET COUNT 216 10x3/uL (130-400); RBC 4.31 10x6/uL (4.20-6.10); RDW 17.5 % (11.5-14.5); WBC 6.1 10x3/uL (4.8-10.8)
[2017-08-15 19:48] VITALS: BP 122/95
[2017-08-16 04:17] VITALS: BP 138/63
[2017-08-16 08:38] VITALS: BP 101/79
[2017-08-16 11:44] VITALS: BP 126/97
[2017-08-16 13:46] VITALS: Ht 193 cm; Wt 171.9 kg
[2017-08-16 17:26] VITALS: BP 145/88
[2017-08-16 21:48] VITALS: BP 131/68
[2017-08-17 02:26] VITALS: BP 123/40
[2017-08-17 04:25] LABS: BASOPHILS 0.4 % (0-2); EOSINOPHILS 2.2 % (0-7); HEMATOCRIT 34.4 % (42.0-54.0); HEMOGLOBIN 10.5 g/dL (13.5-17.5); IMMATURE GRANULOCYTES 0.4 % (0-5); LYMPHOCYTES 18.5 % (15-50); MCH 26.4 pg (26.0-34.0); MCHC 30.5 g/dL (31.0-37.0); MCV 86.4 fL (80.0-100.0); MEAN PLATELET VOLUME 9.7 fL (7.4-10.4); MONOCYTES 12.2 % (2-11); NEUTROPHILS 66.3 % (40-80); PLATELET COUNT 202 10x3/uL (130-400); RBC 3.98 10x6/uL (4.20-6.10); RDW 17.8 % (11.5-14.5)
[2017-08-17 04:28] VITALS: BP 133/59
[2017-08-17 05:12] LABS: ALBUMIN 3.1 g/dL (3.4-5.0); ALKALINE PHOSPHATASE 96 U/L (46-116); ALT (SGPT) 19 U/L (10-68); BILIRUBIN - TOTAL 0.44 mg/dL (0.2-1.3); CALC OSMOLALITY 284 mosm/kg (275-300); CARBON DIOXIDE 29.9 mmol/L (21.0-32.0); CHLORIDE - SERUM 103 mmol/L (98-107); GLUCOSE 132 mg/dL (74-106); POTASSIUM - SERUM 3.7 mmol/L (3.5-5.1); PROTEIN - SERUM 7.3 g/dL (6.4-8.2); SODIUM 142 mmol/L (136-145); UREA NITROGEN 13 mg/dL (7-18); eGFR NON AFRICAN AMERICAN 79 mL/min (90-120)
[2017-08-17 09:48] VITALS: BP 106/65
[2017-08-17 13:22] VITALS: BP 131/74
[2017-08-17 15:26] LABS: INR 1.18 (0.85-1.17); PROTIME 14.6 SECONDS (11.6-15.0)
[2017-08-17 18:10] VITALS: BP 140/81
[2017-08-17 20:40] VITALS: BP 120/65
[2017-08-18 05:24] VITALS: BP 123/57
[2017-08-18 07:42] LABS: BASOPHILS 0.4 % (0-2); EOSINOPHILS 3.9 % (0-7); HEMATOCRIT 33.6 % (42.0-54.0); HEMOGLOBIN 10.2 g/dL (13.5-17.5); IMMATURE GRANULOCYTES 0.2 % (0-5); LYMPHOCYTES 15.9 % (15-50); MCH 26.5 pg (26.0-34.0); MCHC 30.4 g/dL (31.0-37.0); MCV 87.3 fL (80.0-100.0); MEAN PLATELET VOLUME 9.5 fL (7.4-10.4); MONOCYTES 10.7 % (2-11); NEUTROPHILS 68.9 % (40-80); PLATELET COUNT 189 10x3/uL (130-400); RBC 3.85 10x6/uL (4.20-6.10); RDW 17.5 % (11.5-14.5); WBC 5.6 10x3/uL (4.8-10.8)
[2017-08-18 07:50] LABS: INR 1.18 (0.85-1.17); PROTIME 14.6 SECONDS (11.6-15.0)
[2017-08-18 08:00] LABS: ALKALINE PHOSPHATASE 87 U/L (46-116); ALT (SGPT) 20 U/L (10-68); CALC OSMOLALITY 281 mosm/kg (275-300); CALCIUM 8.4 mg/dL (8.5-10.1); CHLORIDE - SERUM 105 mmol/L (98-107); CREATININE - SERUM 0.9 mg/dL (0.6-1.3); GLUCOSE 121 mg/dL (74-106); POTASSIUM - SERUM 4.1 mmol/L (3.5-5.1); PROTEIN - SERUM 7.2 g/dL (6.4-8.2); SODIUM 141 mmol/L (136-145); UREA NITROGEN 13 mg/dL (7-18); eGFR NON AFRICAN AMERICAN 89 mL/min (90-120)
[2017-08-18 08:39] VITALS: BP 119/57
[2017-08-18 12:32] VITALS: BP 134/71
[2017-08-18] MEDS ORDERED: HYDROCODONE-APA1 TAB PO (13:06)
[2017-08-28 11:20] LABS: CALCULI - CA OXALATE DIHYDRATE 15 % (()); CALCULI - CA OXALATE MONOHYDR 45 % (()); CALCULI - COLOR Brown (()); CALCULI - URIC ACID 35 % (())
== END 2017-08-18 14:10 | disposition home or self-care (01) | DRG 660 ==
LOC: D.MS 08:33 → D.OPS 08:33 → D.MS 16:49 → D.OPS 08-16 11:42 → D.MS 08-18 14:10
PROVIDERS: Family Medicine; Radiology Vascular & Interventional Radiology; Urology
PROC: 0T9330Z Drainage of Right Kidney Pelvis with Drainage Device, Percutaneous Approach (ICD-10-PCS; 2017-08-15)
PROC: 0TC03ZZ Extirpation of Matter from Right Kidney, Percutaneous Approach (ICD-10-PCS; principal; 2017-08-15 11:00)
PROC: 0TP98DZ Removal of Intraluminal Device from Ureter, Via Natural or Artificial Opening Endoscopic (ICD-10-PCS; 2017-08-15 11:15)
DX: N20.0 Calculus of kidney (principal); J98.11 Atelectasis; E11.42 Type 2 diabetes mellitus with diabetic polyneuropathy; I10 Essential (primary) hypertension; I48.91 Unspecified atrial fibrillation; Z95.810 Presence of automatic (implantable) cardiac defibrillator

== ENCOUNTER → 2017-08-20 20:08 | Outpatient (CLI) | payer MEDICARE ==
[2017-08-16 13:46] VITALS: BMI 46.1
[~2017-08-20 20:08] MED LIST changes: +CARAFATE1 G/10 ML PO; +PROTONIX40 MG PO
== END | disposition home or self-care (01) ==
LOC: D.LABREF 20:08
DX: N39.0 Urinary tract infection, site not specified (principal)

== ENCOUNTER 2017-09-20 02:03 | Inpatient (IN) | payer MEDICARE ==
[2017-09-20] VITALS (19 sets, daily range): BP systolic 122–154; BP diastolic 72–98; Ht 193 cm; Wt 167.3 kg
[~2017-09-20] VITALS: Ht 193 cm; Wt 167.3 kg
[~2017-09-20 02:03] MED LIST changes: -CARAFATE1 G/10 ML PO; -PROTONIX40 MG PO
[2017-09-20 02:59] LABS: BASOPHILS 0.2 % (0-2); EOSINOPHILS 0 % (0-7); HEMATOCRIT 24.2 % (42.0-54.0); HEMOGLOBIN 7.6 g/dL (13.5-17.5); IMMATURE GRANULOCYTES 0.4 % (0-5); LYMPHOCYTES 7.8 % (15-50); MCH 27.2 pg (26.0-34.0); MCHC 31.4 g/dL (31.0-37.0); MCV 86.7 fL (80.0-100.0); MEAN PLATELET VOLUME 9.2 fL (7.4-10.4); MONOCYTES 5.3 % (2-11); NEUTROPHILS 86.3 % (40-80); RBC 2.79 10x6/uL (4.20-6.10); RDW 19.1 % (11.5-14.5); WBC 11.6 10x3/uL (4.8-10.8)
[2017-09-20 03:02] LABS: PLATELET COUNT 300 10x3/uL (130-400)
[2017-09-20 03:10] LABS: APTT 35.7 SECONDS (22.8-39.4); INR 3.17 (0.85-1.17); PROTIME 31.8 SECONDS (11.6-15.0)
[2017-09-20 03:20] LABS: ALBUMIN 3.3 g/dL (3.4-5.0); ANION GAP 11.8 mmol/L (8-16); BILIRUBIN - TOTAL 0.51 mg/dL (0.2-1.3); CALCIUM 8.4 mg/dL (8.5-10.1); CARBON DIOXIDE 27.6 mmol/L (21.0-32.0); CREATININE - SERUM 1.3 mg/dL (0.6-1.3); POTASSIUM - SERUM 3.4 mmol/L (3.5-5.1); PROTEIN - SERUM 6.8 g/dL (6.4-8.2)
[2017-09-20 08:22] LABS: HEMATOCRIT 24.1 % (42.0-54.0); HEMOGLOBIN 7.7 g/dL (13.5-17.5)
[2017-09-20 08:34] LABS: APTT 26.7 SECONDS (22.8-39.4); INR 1.78 (0.85-1.17); PROTIME 20.2 SECONDS (11.6-15.0)
[2017-09-20 15:54] LABS: BASOPHILS 0.2 % (0-2); EOSINOPHILS 0.5 % (0-7); HEMATOCRIT 26.4 % (42.0-54.0); HEMOGLOBIN 8.5 g/dL (13.5-17.5); IMMATURE GRANULOCYTES 0.1 % (0-5); LYMPHOCYTES 18.1 % (15-50); MCH 27.7 pg (26.0-34.0); MCHC 32.2 g/dL (31.0-37.0); MEAN PLATELET VOLUME 9.6 fL (7.4-10.4); MONOCYTES 7.2 % (2-11); NEUTROPHILS 73.9 % (40-80); RBC 3.07 10x6/uL (4.20-6.10); RDW 18.3 % (11.5-14.5)
[2017-09-20 16:06] LABS: ALBUMIN 3.2 g/dL (3.4-5.0); ALKALINE PHOSPHATASE 56 U/L (46-116); ALT (SGPT) 21 U/L (10-68); BILIRUBIN - TOTAL 0.87 mg/dL (0.2-1.3); CALCIUM 8.4 mg/dL (8.5-10.1); CARBON DIOXIDE 30.2 mmol/L (21.0-32.0); CHLORIDE - SERUM 108 mmol/L (98-107); GLUCOSE 95 mg/dL (74-106); PROTEIN - SERUM 6.7 g/dL (6.4-8.2); SODIUM 144 mmol/L (136-145)
[2017-09-20 16:10] LABS: CALC OSMOLALITY 294 mosm/kg (275-300); CREATININE - SERUM 0.8 mg/dL (0.6-1.3); POTASSIUM - SERUM 4.1 mmol/L (3.5-5.1); UREA NITROGEN 34 mg/dL (7-18); eGFR NON AFRICAN AMERICAN > 90 mL/min (90-120)
[2017-09-20 16:25] LABS: PLATELET COUNT 100 10x3/uL (130-400); WBC 8.1 10x3/uL (4.8-10.8)
[2017-09-20 22:30] LABS: HEMATOCRIT 25.5 % (42.0-54.0); HEMOGLOBIN 8.2 g/dL (13.5-17.5)
[2017-09-21] VITALS (24 sets, daily range): BP systolic 122–163; BP diastolic 60–97
[2017-09-21 03:13] LABS: BASOPHILS 0.4 % (0-2); EOSINOPHILS 2.7 % (0-7); HEMATOCRIT 28.4 % (42.0-54.0); HEMOGLOBIN 9.2 g/dL (13.5-17.5); IMMATURE GRANULOCYTES 0.2 % (0-5); LYMPHOCYTES 20.7 % (15-50); MCH 27.6 pg (26.0-34.0); MCHC 32.4 g/dL (31.0-37.0); MCV 85.3 fL (80.0-100.0); MEAN PLATELET VOLUME 9.3 fL (7.4-10.4); MONOCYTES 7.5 % (2-11); NEUTROPHILS 68.5 % (40-80); RBC 3.33 10x6/uL (4.20-6.10); RDW 17.8 % (11.5-14.5)
[2017-09-21 03:17] LABS: PLATELET COUNT 189 10x3/uL (130-400); WBC 5.5 10x3/uL (4.8-10.8)
[2017-09-21 03:32] LABS: ALBUMIN 3.2 g/dL (3.4-5.0); ALKALINE PHOSPHATASE 64 U/L (46-116); ALT (SGPT) 22 U/L (10-68); CALCIUM 7.8 mg/dL (8.5-10.1); CARBON DIOXIDE 27.8 mmol/L (21.0-32.0); CHLORIDE - SERUM 108 mmol/L (98-107); CREATININE - SERUM 0.8 mg/dL (0.6-1.3); GLUCOSE 97 mg/dL (74-106); PROTEIN - SERUM 6.6 g/dL (6.4-8.2); SODIUM 145 mmol/L (136-145); eGFR NON AFRICAN AMERICAN > 90 mL/min (90-120)
[2017-09-21 03:33] LABS: INR 1.28 (0.85-1.17); PROTIME 15.6 SECONDS (11.6-15.0)
[2017-09-21 03:38] LABS: CALC OSMOLALITY 292 mosm/kg (275-300); POTASSIUM - SERUM 3.2 mmol/L (3.5-5.1); UREA NITROGEN 23 mg/dL (7-18)
[2017-09-21 06:55] LABS: HEMATOCRIT 28.3 % (42.0-54.0)
[2017-09-21 11:16] LABS: HEMATOCRIT 28.2 % (42.0-54.0); HEMOGLOBIN 9.2 g/dL (13.5-17.5)
[2017-09-21 14:06] LABS: HEMOGLOBIN 9.2 g/dL (13.5-17.5)
[2017-09-21 18:45] LABS: HEMATOCRIT 27.8 % (42.0-54.0)
[2017-09-21 21:54] LABS: HEMATOCRIT 27.3 % (42.0-54.0); HEMOGLOBIN 8.7 g/dL (13.5-17.5)
[2017-09-22] VITALS (12 sets, daily range): BP systolic 110–163; BP diastolic 63–86
[2017-09-22 04:35] LABS: BASOPHILS 0.2 % (0-2); EOSINOPHILS 3.3 % (0-7); HEMATOCRIT 28.5 % (42.0-54.0); IMMATURE GRANULOCYTES 0.2 % (0-5); MCH 27.5 pg (26.0-34.0); MCHC 31.6 g/dL (31.0-37.0); MCV 87.2 fL (80.0-100.0); MEAN PLATELET VOLUME 9.6 fL (7.4-10.4); MONOCYTES 9.8 % (2-11); NEUTROPHILS 69.5 % (40-80); PLATELET COUNT 179 10x3/uL (130-400); RBC 3.27 10x6/uL (4.20-6.10); RDW 18.2 % (11.5-14.5); WBC 5.1 10x3/uL (4.8-10.8)
[2017-09-22 04:57] LABS: CALC OSMOLALITY 281 mosm/kg (275-300); CALCIUM 8.1 mg/dL (8.5-10.1); CARBON DIOXIDE 30.8 mmol/L (21.0-32.0); CHLORIDE - SERUM 106 mmol/L (98-107); CREATININE - SERUM 0.8 mg/dL (0.6-1.3); GLUCOSE 113 mg/dL (74-106); POTASSIUM - SERUM 3.4 mmol/L (3.5-5.1); PRO BNP 934 pg/mL (0-125); SODIUM 141 mmol/L (136-145); UREA NITROGEN 12 mg/dL (7-18); eGFR NON AFRICAN AMERICAN > 90 mL/min (90-120)
[2017-09-22 10:34] LABS: HEMATOCRIT 27.9 % (42.0-54.0); HEMOGLOBIN 8.8 g/dL (13.5-17.5)
[2017-09-22 16:03] LABS: HEMATOCRIT 27.9 % (42.0-54.0); HEMOGLOBIN 8.8 g/dL (13.5-17.5)
[2017-09-22 22:46] LABS: HEMATOCRIT 27.9 % (42.0-54.0); HEMOGLOBIN 8.7 g/dL (13.5-17.5)
[2017-09-23 06:15] LABS: HEMATOCRIT 29.1 % (42.0-54.0); HEMOGLOBIN 9.1 g/dL (13.5-17.5)
[2017-09-23 06:42] LABS: CALC OSMOLALITY 277 mosm/kg (275-300); CALCIUM 8.3 mg/dL (8.5-10.1); CARBON DIOXIDE 31.9 mmol/L (21.0-32.0); CHLORIDE - SERUM 105 mmol/L (98-107); CREATININE - SERUM 0.7 mg/dL (0.6-1.3); GLUCOSE 110 mg/dL (74-106); POTASSIUM - SERUM 3.5 mmol/L (3.5-5.1); SODIUM 140 mmol/L (136-145); UREA NITROGEN 8 mg/dL (7-18); eGFR NON AFRICAN AMERICAN > 90 mL/min (90-120)
[2017-09-23 08:28] VITALS: BP 166/79
[2017-09-23] MEDS ORDERED: CARAFATE1 G/10 ML PO (10:32)
[2017-09-23] MEDS ORDERED: PROTONIX40 MG PO (10:32)
[2017-09-23 10:35] LABS: HEMATOCRIT 28.7 % (42.0-54.0)
[2017-09-23 13:25] VITALS: BP 158/83
== END 2017-09-23 14:40 | disposition home or self-care (01) | DRG 381 ==
LOC: D.ER 02:03 → D.EDHOLD 03:52 → D.ICU 03:52 → D.MS 09-22 12:21
PROVIDERS: Emergency Medicine; Family Medicine; Internal Medicine Gastroenterology; Internal Medicine Nephrology
PROC: 3E0G8TZ Introduction of Destructive Agent into Upper GI, Via Natural or Artificial Opening Endoscopic (ICD-10-PCS; principal; 2017-09-20 10:56)
DX: K22.11 Ulcer of esophagus with bleeding (principal); D62 Acute posthemorrhagic anemia; K92.2 Gastrointestinal hemorrhage, unspecified; K92.1 Melena; I48.2 Chronic atrial fibrillation; Z79.01 Long term (current) use of anticoagulants; E66.01 Morbid (severe) obesity due to excess calories; K22.2 Esophageal obstruction; K44.9 Diaphragmatic hernia without obstruction or gangrene; R55 Syncope and collapse; E11.9 Type 2 diabetes mellitus without complications; I25.10 Atherosclerotic heart disease of native coronary artery without angina pectoris; I10 Essential (primary) hypertension; G47.33 Obstructive sleep apnea (adult) (pediatric); E78.5 Hyperlipidemia, unspecified

== ENCOUNTER → 2017-10-01 13:16 | Outpatient (CLI) | payer MEDICARE ==
[2017-09-20 10:51] VITALS: BMI 43.8
[~2017-10-01 13:16] MED LIST changes: +CARAFATE1 G/10 ML PO; +PROTONIX40 MG PO
== END | disposition home or self-care (01) ==
LOC: D.CT 13:16
DX: R10.9 Unspecified abdominal pain (principal)

== ENCOUNTER → 2017-10-30 11:45 | Outpatient (CLI) | payer MEDICARE ==
[2017-09-20 10:51] VITALS: BMI 43.8
[2017-10-30 12:09] LABS: BASOPHILS 0.3 % (0-2); EOSINOPHILS 1.4 % (0-7); HEMATOCRIT 34.1 % (42.0-54.0); HEMOGLOBIN 10.7 g/dL (13.5-17.5); IMMATURE GRANULOCYTES 0.3 % (0-5); LYMPHOCYTES 22.9 % (15-50); MCHC 31.4 g/dL (31.0-37.0); MEAN PLATELET VOLUME 8.6 fL (7.4-10.4); MONOCYTES 7.7 % (2-11); NEUTROPHILS 67.4 % (40-80); RBC 4.11 10x6/uL (4.20-6.10); RDW 15.9 % (11.5-14.5); WBC 6.6 10x3/uL (4.8-10.8)
[2017-10-30 12:17] LABS: PLATELET COUNT 256 10x3/uL (130-400)
== END | disposition home or self-care (01) ==
LOC: D.LAB 11:45
PROVIDERS: Internal Medicine Gastroenterology
DX: K25.4 Chronic or unspecified gastric ulcer with hemorrhage (principal)

== ENCOUNTER 2017-11-21 05:45 | Day surgery (SDC) | payer MEDICARE ==
[2017-11-20 09:57] LABS: BASOPHILS 0.3 % (0-2); EOSINOPHILS 2.7 % (0-7); HEMATOCRIT 32.6 % (42.0-54.0); HEMOGLOBIN 9.9 g/dL (13.5-17.5); IMMATURE GRANULOCYTES 0.2 % (0-5); MCH 25.1 pg (26.0-34.0); MCHC 30.4 g/dL (31.0-37.0); MCV 82.7 fL (80.0-100.0); MEAN PLATELET VOLUME 8.5 fL (7.4-10.4); MONOCYTES 7.5 % (2-11); NEUTROPHILS 69.3 % (40-80); PLATELET COUNT 281 10x3/uL (130-400); RBC 3.94 10x6/uL (4.20-6.10); RDW 16.2 % (11.5-14.5); WBC 5.8 10x3/uL (4.8-10.8)
[2017-11-20 10:03] LABS: CALC OSMOLALITY 280 mosm/kg (275-300); CALCIUM 8.7 mg/dL (8.5-10.1); CARBON DIOXIDE 30.7 mmol/L (21.0-32.0); CHLORIDE - SERUM 104 mmol/L (98-107); GLUCOSE 105 mg/dL (74-106); POTASSIUM - SERUM 4.1 mmol/L (3.5-5.1); SODIUM 141 mmol/L (136-145); UREA NITROGEN 13 mg/dL (7-18); eGFR NON AFRICAN AMERICAN 79 mL/min (90-120)
[2017-11-20 10:13] LABS: APTT 36.7 SECONDS (22.8-39.4); INR 1.55 (0.85-1.17); PROTIME 18.1 SECONDS (11.6-15.0)
[~2017-11-21] VITALS: Ht 193 cm; Wt 167.8 kg
--- NOTE | ~2017-11-21 | OP ---
PATIENT NAME: PARESH SANCHEZ MEDICAL RECORD: [id number] :46 LOCATION:[facility] ADMISSION DATE: SURGEON: JAIDA LA MD DATE OF OPERATION: 11/21/2017 SURGEON: Jaida La MD PREOPERATIVE DIAGNOSIS: Right inguinal and periaortic lymphadenopathy. POSTOPERATIVE DIAGNOSIS: Right inguinal and periaortic lymphadenopathy. PROCEDURE PERFORMED: Excisional biopsy of superficial right groin lymph node. ANESTHESIA: General. COMPLICATIONS: None. SPECIMENS: Superficial right groin lymph node 8 cm x 4 cm x 4 cm. Case was clean. ESTIMATED BLOOD LOSS: 20 cc. OPERATIVE COURSE: After consent was obtained, the patient was taken to the OR and placed in supine position on the operating table. Next, a timeout was taken to confirm the correct patient and procedure. General anesthesia was given. The right groin was prepped and draped in typical sterile fashion. A 10 cc of local anesthetic were injected. The lymph node was palpated. A linear incision was made using 10-blade scalpel. Dissection continued to the level of skin and subcutaneous tissues using electrocautery. Self-retaining retractor was placed. After dissection of the superficial tissue was completed, the lymph node was seen. It was circumferentially dissected using Metzenbaum scissors and electrocautery, and clips were placed on all identified branches, the lymphatic vessels coming into the lymph node circumferentially. The specimen was excised, it was 8 cm in length x 4 cm in width x 4 cm in depth and was sent for lymph node protocol for pathology. Wound was then copiously irrigated and suctioned. The wound was closed in 3 layers. The deep subcutaneous layer was closed with 3-0 Vicryl suture. The superficial subcutaneous layer was closed with 3-0 Vicryl suture. The skin was closed with 3-0 Monocryl, Mastisol and Steri-Strips. Prior to closure of the skin, a LARRY drain was placed into the space. It was secured to the skin using a 2-0 nylon suture. At the end of the case, all needle and instrument counts were correct. No complications occurred. The patient was extubated and transferred to the PACU in stable condition. TRANSINT:[id number] Voice Confirmation ID: [id number] DOCUMENT ID: [id number] JAIDA LA MD at 1552 CC: [id number] DICTATION DATE: 11/21/17 1122 LA[facility] CARE TECHNICIAN: 11/21/17 1211 [facility] [address] [place] [id number]
[2017-11-21 06:43] VITALS: Ht 193 cm; Wt 167.8 kg
[2017-11-21] MEDS ORDERED: OXYCODONE HCL5 MG PO (11:16)
== END 2017-11-21 13:30 | disposition home or self-care (01) ==
LOC: D.OPS 05:45 → D.PAN 08:00 → D.OPS 08:00
PROVIDERS: Anesthesiology
DX: R59.0 Localized enlarged lymph nodes (principal); Z01.812 Encounter for preprocedural laboratory examination

== ENCOUNTER 2017-11-28 10:08 | Day surgery (SDC) | payer MEDICARE ==
[~2017-11-28] VITALS: Ht 193 cm; Wt 166.5 kg
--- NOTE | ~2017-11-28 | OP ---
PATIENT NAME: PARESH SANCHEZ MEDICAL RECORD: [id number] :46 LOCATION:[facility] ADMISSION DATE: SURGEON: ELIZABETH MEZA DO DATE OF OPERATION: 11/28/2017 PROCEDURE: EGD with biopsies. INDICATION FOR PROCEDURE: History of gastric ulcer with hemorrhage. SCOPE: Olympus video gastroscope. MEDICATIONS: Propofol 200 mg IV per anesthesia. ESTIMATED BLOOD LOSS: Minimal. COMPLICATIONS: None. FINDINGS: Informed consent was given. The patient was made comfortable with the above medication. After reaching an adequate level of sedation by slow IV push, the patient was placed on his left side. The endoscope was advanced under direct visualization through the mouth to the second portion of the duodenum. The upper, middle, and lower thirds of the esophagus appeared normal. At the GE junction, there was very mild evidence of LA class A reflux-induced esophagitis. The endoscope was advanced beyond the GE junction into the stomach and retroflexed to view the cardia, where a very small sliding hiatal hernia was present. The fundus and body of the stomach appeared normal. In the antrum, there were 2 very small and superficial ulcers which appeared to be healing compared to previous imaging. These would be consistent with NSAID-induced ulcerations. There was no active bleeding. The endoscope was advanced beyond the pylorus into the duodenum where the bulb, first portion, and second portion of the duodenum appeared normal. The endoscope was withdrawn back into the stomach and random biopsies were taken to submit for histology and to rule out the presence of H. pylori. The endoscope was then withdrawn from the patient. The patient tolerated the procedure well and there were no complications. IMPRESSION: 1. LA class A reflux-induced esophagitis. 2. Small sliding hiatal hernia. 3. There were a couple of very small and superficial antral ulcerations, consistent with NSAID-induced ulcers. There was no active bleeding. PLAN AND RECOMMENDATIONS: 1. Discharge home when recovery parameters are met. 2. Followup biopsy specimen results. 3. GERD diet and reflux precautions. 4. Continue current medications. 5. We will provide another prescription for pantoprazole 40 mg daily to be taken for 60 days to assure complete healing of current ulcerations. After this time, the patient may benefit from use of a histamine mariah such as Pepcid or Zantac while taking anti-inflammatory medications. TRANSINT:[id number] Voice Confirmation ID: [id number] DOCUMENT ID: [id number] OPERATIVE REPORT [id number] PARESH SANCHEZ NATHAN A DO at 1236 CC: [id number] DICTATION DATE: 11/28/17 1356 BANK VAULT CLERK: 11/28/17 1427 [facility] 11/28/17 [place] [id number] [place] [id number]
[2017-11-28 10:37] LABS: BASOPHILS 0.5 % (0-2); EOSINOPHILS 2.8 % (0-7); HEMATOCRIT 33.9 % (42.0-54.0); HEMOGLOBIN 10.4 g/dL (13.5-17.5); IMMATURE GRANULOCYTES 0.5 % (0-5); LYMPHOCYTES 17.8 % (15-50); MCH 25.2 pg (26.0-34.0); MCHC 30.7 g/dL (31.0-37.0); MCV 82.1 fL (80.0-100.0); MEAN PLATELET VOLUME 8.2 fL (7.4-10.4); MONOCYTES 7.5 % (2-11); NEUTROPHILS 70.9 % (40-80); PLATELET COUNT 251 10x3/uL (130-400); RBC 4.13 10x6/uL (4.20-6.10); RDW 16.6 % (11.5-14.5); WBC 6.1 10x3/uL (4.8-10.8)
[2017-11-28 12:21] LABS: CALC OSMOLALITY 275 mosm/kg (275-300); CALCIUM 8.3 mg/dL (8.5-10.1); CARBON DIOXIDE 31.5 mmol/L (21.0-32.0); CHLORIDE - SERUM 102 mmol/L (98-107); GLUCOSE 99 mg/dL (74-106); POTASSIUM - SERUM 4.3 mmol/L (3.5-5.1); SODIUM 138 mmol/L (136-145); UREA NITROGEN 12 mg/dL (7-18); eGFR NON AFRICAN AMERICAN 79 mL/min (90-120)
[2017-11-28 12:30] LABS: APTT 31.6 SECONDS (22.8-39.4); INR 1.14 (0.85-1.17); PROTIME 14.2 SECONDS (11.6-15.0)
[2017-11-28 12:31] VITALS: BP 136/70; Ht 193 cm; Wt 166.5 kg
== END 2017-11-28 14:56 | disposition home or self-care (01) ==
LOC: D.OPS 10:08
PROVIDERS: Anesthesiology
DX: K25.9 Gastric ulcer, unspecified as acute or chronic, without hemorrhage or perforation (principal); K21.0 Gastro-esophageal reflux disease with esophagitis; K44.9 Diaphragmatic hernia without obstruction or gangrene; Z01.812 Encounter for preprocedural laboratory examination

== ENCOUNTER 2017-12-10 05:48 | Day surgery (SDC) | payer MEDICARE ==
[~2017-12-10] VITALS: Ht 193 cm; Wt 161.4 kg
--- NOTE | ~2017-12-10 | OP ---
PATIENT NAME: PARESH SANCHEZ MEDICAL RECORD: [id number] :46 LOCATION:D.OPS ADMISSION DATE: SURGEON: ELIZABETH MEZA DO DATE OF OPERATION: 12/10/2017 PROCEDURE: Colonoscopy with EMR and polypectomy. SCOPE: Olympus video pediatric colonoscope. MEDICATIONS: No anesthesia was given during this examination. WITHDRAWAL TIME: 19 minutes. ESTIMATED BLOOD LOSS: Minimal. COMPLICATIONS: None. FINDINGS: Informed consent was given. The patient was placed on his left side. A digital rectal examination was performed and it was normal. The endoscope was then advanced under direct visualization through the rectum to the cecum, confirmed by the presence of the appendiceal orifice and ileocecal valve. The endoscope was slowly withdrawn and mucosa was carefully examined. The prep quality was good. There were 2 polyps visualized on today's examination. They were both located in the ascending colon. Both were benign-appearing and ranged in size from 3-6 mm in diameter. The first was removed using hot forceps in 1 piece and completely retrieved. The second was removed using endoscopic mucosal resection technique with an injection of isotonic saline for a saline pillow followed by a snare cautery polypectomy in 1 piece. It was also completely retrieved. There was evidence of mild diverticulosis involving the sigmoid colon. Retroflexion was performed in the rectum. In the rectum, there were some radiation changes with some friability and increased vascularity consistent with his history of prostate cancer, which was treated with radiation therapy. The endoscope was withdrawn from the patient. The patient tolerated the procedure well and there were no complications. IMPRESSIONS: 1. Two polyps as described above, removed using hot forceps and endoscopic mucosal resection technique. 2. Mild diverticulosis of the sigmoid colon. 3. Radiation changes in the rectum. PLAN AND RECOMMENDATIONS: 1. Discharge home when recovery parameters are met. 2. Follow up biopsy specimen results. 3. High fiber diet. 4. Continue current medications. 5. Recall colonoscopy in 5 years. TRANSINT:[id number] Voice Confirmation ID: [id number] DOCUMENT ID: [id number] OPERATIVE REPORT [id number] PARESH SANCHEZ ELIZABETH MEZA DO at 1236 CC: [id number] DICTATION DATE: 12/10/17913 STAFF COUNSEL: 12/10/17 1134 [facility] 12/10/17 [facility] [address] [facility] [place] [address]
[2017-12-10 06:19] LABS: HEMATOCRIT 34.9 % (42.0-54.0); MCH 25.3 pg (26.0-34.0); MCHC 31.5 g/dL (31.0-37.0); MCV 80.2 fL (80.0-100.0); MEAN PLATELET VOLUME 8.5 fL (7.4-10.4); RBC 4.35 10x6/uL (4.20-6.10); RDW 16.7 % (11.5-14.5); WBC 6.1 10x3/uL (4.8-10.8)
[2017-12-10 06:40] LABS: CALC OSMOLALITY 271 mosm/kg (275-300); CALCIUM 8.7 mg/dL (8.5-10.1); CARBON DIOXIDE 31.1 mmol/L (21.0-32.0); CHLORIDE - SERUM 100 mmol/L (98-107); CREATININE - SERUM 0.9 mg/dL (0.6-1.3); GLUCOSE 108 mg/dL (74-106); POTASSIUM - SERUM 3.7 mmol/L (3.5-5.1); SODIUM 136 mmol/L (136-145); UREA NITROGEN 11 mg/dL (7-18); eGFR NON AFRICAN AMERICAN 89 mL/min (90-120)
[2017-12-10 07:05] VITALS: BP 157/85; Ht 193 cm; Wt 161.4 kg
[2017-12-10 07:08] LABS: APTT 29.2 SECONDS (22.8-39.4); INR 1.15 (0.85-1.17); PROTIME 14.1 SECONDS (11.6-15.0)
== END 2017-12-10 10:04 | disposition home or self-care (01) ==
LOC: D.OPS 05:48
PROVIDERS: Anesthesiology
DX: Z12.11 Encounter for screening for malignant neoplasm of colon (principal); D12.2 Benign neoplasm of ascending colon; K57.30 Diverticulosis of large intestine without perforation or abscess without bleeding; Z85.46 Personal history of malignant neoplasm of prostate; Z92.3 Personal history of irradiation; Z01.812 Encounter for preprocedural laboratory examination

== ENCOUNTER → 2017-12-24 16:49 | Outpatient (CLI) | payer MEDICARE ==
[2017-12-10 07:05] VITALS: BMI 43.3
[2017-12-24 17:53] LABS: BASOPHILS 0.6 % (0-2); EOSINOPHILS 1.8 % (0-7); HEMATOCRIT 35.8 % (42.0-54.0); HEMOGLOBIN 11.1 g/dL (13.5-17.5); IMMATURE GRANULOCYTES 0.1 % (0-5); LYMPHOCYTES 15.8 % (15-50); MCH 24.9 pg (26.0-34.0); MCV 80.3 fL (80.0-100.0); MEAN PLATELET VOLUME 9.2 fL (7.4-10.4); MONOCYTES 8.9 % (2-11); NEUTROPHILS 72.8 % (40-80); RBC 4.46 10x6/uL (4.20-6.10); RDW 16.8 % (11.5-14.5); WBC 7.3 10x3/uL (4.8-10.8)
[2017-12-24 18:22] LABS: PLATELET COUNT 361 10x3/uL (130-400)
[2017-12-24 18:57] LABS: ERYTHROCYTE SEDIMENTATION RATE 6 mm/hr (0-20)
== END | disposition home or self-care (01) ==
LOC: D.LABREF 16:49
PROVIDERS: Orthopaedic Surgery
DX: M25.561 Pain in right knee (principal)

== ENCOUNTER 2018-08-01 01:56 | Inpatient (IN) | payer MEDICARE ==
[2018-08-01] VITALS (7 sets, daily range): BP systolic 124–139; BP diastolic 59–87; Ht 193 cm; Wt 165.9 kg
[~2018-08-01] VITALS: Ht 193 cm; Wt 165.9 kg
[2018-08-01 02:17] LABS: BASOPHILS 0.2 % (0-2); EOSINOPHILS 0.7 % (0-7); HEMATOCRIT 32.5 % (42.0-54.0); HEMOGLOBIN 9.9 g/dL (13.5-17.5); IMMATURE GRANULOCYTES 0.3 % (0-5); LYMPHOCYTES 13.6 % (15-50); MCH 23.7 pg (26.0-34.0); MCHC 30.5 g/dL (31.0-37.0); MCV 77.8 fL (80.0-100.0); MEAN PLATELET VOLUME 8.5 fL (7.4-10.4); MONOCYTES 9.4 % (2-11); NEUTROPHILS 75.8 % (40-80); PLATELET COUNT 348 10x3/uL (130-400); RBC 4.18 10x6/uL (4.20-6.10); RDW 16.9 % (11.5-14.5); WBC 8.9 10x3/uL (4.8-10.8)
[2018-08-01 02:39] LABS: ALBUMIN 2.7 g/dL (3.4-5.0); ALKALINE PHOSPHATASE 167 U/L (46-116); ALT (SGPT) 20 U/L (10-68); BILIRUBIN - TOTAL 0.61 mg/dL (0.2-1.3); CALC OSMOLALITY 276 mosm/kg (275-300); CALCIUM 8.5 mg/dL (8.5-10.1); CARBON DIOXIDE 30.1 mmol/L (21.0-32.0); CHLORIDE - SERUM 100 mmol/L (98-107); CREATININE - SERUM 0.9 mg/dL (0.6-1.3); GLUCOSE 119 mg/dL (74-106); POTASSIUM - SERUM 3.6 mmol/L (3.5-5.1); PROTEIN - SERUM 8.1 g/dL (6.4-8.2); SODIUM 138 mmol/L (136-145); UREA NITROGEN 12 mg/dL (7-18); eGFR NON AFRICAN AMERICAN 89 mL/min (90-120)
[2018-08-01 02:45] LABS: LIPASE 188 U/L (73-393); PRO BNP 639 pg/mL (0-125)
[2018-08-01 02:46] LABS: TROPONIN-I < 0.017 ng/mL (0.000-0.060)
[2018-08-01 02:49] LABS: APTT 41.9 SECONDS (22.8-39.4); INR 1.56 (0.85-1.17)
[2018-08-01 06:57] LABS: BASOPHILS 0.2 % (0-2); EOSINOPHILS 0.5 % (0-7); HEMATOCRIT 29.9 % (42.0-54.0); IMMATURE GRANULOCYTES 0.2 % (0-5); LYMPHOCYTES 13.9 % (15-50); MCH 23.3 pg (26.0-34.0); MCHC 30.1 g/dL (31.0-37.0); MCV 77.5 fL (80.0-100.0); MEAN PLATELET VOLUME 8.8 fL (7.4-10.4); MONOCYTES 9.7 % (2-11); NEUTROPHILS 75.5 % (40-80); PLATELET COUNT 348 10x3/uL (130-400); RBC 3.86 10x6/uL (4.20-6.10); WBC 8.3 10x3/uL (4.8-10.8)
--- NOTE | 2018-08-01 07:15 | NUR ---
PATIENT ADMITTED FOR GI BLEED FROM ER THIS AM. PATIENT REPORTS BRIGHT RED BLEEDING PRIOR TO ER. PATIENT IS ON COUMADIN FOR AFIB. PATIENT ALERT AND ORIENTED. REPORTS MID-UPPER EPIGASTIC PAIN THAT HAS IMPROVED SINCE IN ER. PATIENT DENIES ANY NEEDS AT THIS TIME. CL IN EASY REACH
--- NOTE | 2018-08-01 14:11 | MORECARE ---
CASE MANAGEMENT DISCHARGE SUMMARY PATIENT: PARESH SANCHEZ UNIT: [id number] ADM DATE: 08/01/18 AGE: 67 : 48 SEX: M ROOM/BED: D.2101 AUTHOR: LIZETTE VIEYRA PHYSICIAN: REFERRING PHYSICIAN: ODIN ZULETA MD DATE OF SERVICE: 08/01/18 Discharge Plan Patient Name: PARESH SANCHEZ [facility] [facility] 1950 Planned Disposition: Anticipated Discharge Date: Discharge Date: Expected LOS: Initial Reviewer: [email or web address] Initial Review Date: 08/01/2018 Generated: 08/01/18 3:11 pm Coverage Notice Reviewer: [email or web address] - Emelina Elmo Notice Issued Date-Time: 08/01/2018 13:50 Notice Type: Medicare Outpatient Observation Notice Notice Delivered To: Patient Relationship to Patient: Self Dyed Raw Stock Blower Feeder Name: Delivery Method: HAND - Hand Delivered Melissa Days: Prior Verbal Notification: Recipient Understood Notice: Yes Recipient Signature: Yes Med Rec Note Co-signed by Attending: Coverage Notice Comment: SPOKE WITH THE PATIENT AND HIS TWO FRIENDS, SABINO ROMO AND JELANI ("HER SISTER"), AFTER VERBAL CONSENT WAS OBTAINED. Patient Name: PARESH SANCHEZ Page [id number] at 1411 All edits/amendments must be made on the electronic document DICTATION DATE: 08/01/18 1410 DRIP MOLDER: ADELA 08/01/18 1410 RPT#: [id number] DC DATE: STATUS: ADM IN [place] [address] [place] [address] END OF REPORT
--- NOTE | 2018-08-01 19:39 | NUR ---
RESUMING PT CARE. PT ALERT LAYING IN BED. NO S/S OF DISTRESS NOTED. BED IN LOW POSITION WITH CALL LIGHT IN REACH. SIDE RAILS UP X 2. WILL CONTINUE TO MONITOR PT AND FOLLOW PLAN OF CARE.
--- NOTE | 2018-08-01 23:00 | NUR ---
ONE UNIT OF PLASMA INFUSING. NO S/S OF DISTRESS NOTED. PT IS TOLERATING INFUSION WELL AT THIS TIME. NO ALLERGIC REACTION. WILL CONTINUE TO MONITOR AND PT AND FOLLOW PLAN OF CARE.
--- NOTE | 2018-08-02 | NUR ---
SECOND UNIT OF PLASMA IS INFUSING. NO C/O VOICED. PT IS TOLERATING INFUSION WELL AT THIS TIME. NO ALLEGERIC REACTION AT THIS TIME. WILL CONTINUE TO MONITOR PT AND FOLLOW PLAN OF CARE.
--- NOTE | 2018-08-02 01:10 | NUR ---
PLASMA INFUSION COMPLETED. PT TOELRATED BOTH UNITS OF PLASMA WELL. NO S/S OF DISTRESS. WILL CONTINUE TO MONITOR PT AND FOLLOW PLAN OF CARE.
[2018-08-02 03:43] LABS: BASOPHILS 0.4 % (0-2); EOSINOPHILS 1.4 % (0-7); HEMATOCRIT 29.9 % (42.0-54.0); HEMOGLOBIN 9.4 g/dL (13.5-17.5); IMMATURE GRANULOCYTES 0.3 % (0-5); LYMPHOCYTES 14.5 % (15-50); MCH 24.5 pg (26.0-34.0); MCHC 31.4 g/dL (31.0-37.0); MCV 77.9 fL (80.0-100.0); MEAN PLATELET VOLUME 8.7 fL (7.4-10.4); MONOCYTES 9.7 % (2-11); NEUTROPHILS 73.7 % (40-80); PLATELET COUNT 327 10x3/uL (130-400); RBC 3.84 10x6/uL (4.20-6.10); RDW 17.1 % (11.5-14.5); WBC 7.2 10x3/uL (4.8-10.8)
[2018-08-02 03:52] LABS: INR 1.63 (0.85-1.17); PROTIME 18.7 SECONDS (11.6-15.0)
[2018-08-02 04:00] VITALS: BP 119/72
[2018-08-02 04:06] LABS: % SATURATION 7 % (15-55); IRON 22 ug/dl (35-150); TOTAL IRON BIND CAPACITY 280 ug/dl (260-445); UNSAT IRON BIND CAPACITY 258 ug/dl (150-375)
--- NOTE | 2018-08-02 04:12 | NUR ---
I have reviewed this patient and I concur with the Shift Assessment completed by the Licensed Practical Nurse today this shift.
[2018-08-02 04:16] LABS: ALBUMIN 2.7 g/dL (3.4-5.0); ALKALINE PHOSPHATASE 151 U/L (46-116); ALT (SGPT) 18 U/L (10-68); AMYLASE - SERUM 34 U/L (25-115); BILIRUBIN - TOTAL 0.47 mg/dL (0.2-1.3); CALC OSMOLALITY 278 mosm/kg (275-300); CALCIUM 8.9 mg/dL (8.5-10.1); CARBON DIOXIDE 31.7 mmol/L (21.0-32.0); CHLORIDE - SERUM 102 mmol/L (98-107); CREATININE - SERUM 0.8 mg/dL (0.6-1.3); FERRITIN 140 ng/mL (3-244); GLUCOSE 100 mg/dL (74-106); LIPASE 188 U/L (73-393); MAGNESIUM - SERUM 1.8 mg/dL (1.8-2.4); POTASSIUM - SERUM 3.5 mmol/L (3.5-5.1); PROTEIN - SERUM 7.7 g/dL (6.4-8.2); SODIUM 141 mmol/L (136-145); THYROID STIMULATING HORMONE 1.96 uIU/mL (0.36-3.74); UREA NITROGEN 8 mg/dL (7-18); eGFR NON AFRICAN AMERICAN > 90 mL/min (90-120)
--- NOTE | 2018-08-02 04:41 | NUR ---
PT LAYING IN BED RESTING COMFORTABLY WITH EYES CLOSED. BED IN LOW POSITION WITH CALL LIGHT IN REACH. SIDE RAILS UP X 2. WILL CONTINUE TO MONITOR PT AND FOLLOW PLAN OF CARE.
--- NOTE | 2018-08-02 07:30 | NUR ---
A/A/OX4. REMAINS NPO FOR EGD THIS AM AND VERBALIZES UNDERSTANDING. NO REQUESTS VOICED AT PRESENT TIME. IV PATENT TO RIGHT AC WITHOUT REDNESS OR EDEMA. BED LOCKED IN LOW POSITION WITH SIDERAILS UP X 2 AND CALL LIGHT IN REACH. WILL CONTINUE POC.
--- NOTE | 2018-08-02 08:00 | NUR ---
TO GI LAB VIA BED FOR EGD.
--- NOTE | 2018-08-02 09:00 | NUR ---
RETURNED TO ROOM VIA BED. A/A/OX4. NO REQUESTS.
--- NOTE | 2018-08-02 10:06 | NUR ---
Diet advanced to diabetic cardiac and pt ate 100% of breakfast Pt reports good appetite and tolerating breakfast well Pt reports that he was eating good prior to admit Pt has no questions about diabetic or cardiac diet for at home BG 100, [address] following
--- NOTE | 2018-08-02 14:02 | NUR ---
I have reviewed this patient and I concur with the Shift Assessment completed by the Licensed Practical Nurse today this shift.
[2018-08-02 17:00] LABS: HEMATOCRIT 32.3 % (42.0-54.0); HEMOGLOBIN 9.7 g/dL (13.5-17.5)
[2018-08-02 17:26] VITALS: BP 140/70
[2018-08-02 17:36] VITALS: BP 138/60
--- NOTE | 2018-08-02 19:05 | NUR ---
PT LAYING IN BED WITH EYES CLOSED. RR EVEN AND UNLABORED. 2L O2NC. NO S/S OF DISTRESS. BED LOW CALL LIGHT [id number] REACH. WIILL CONTINUE TO MONITOR.
[2018-08-02 21:17] VITALS: BP 127/73
[2018-08-03 01:04] VITALS: BP 137/68
--- NOTE | 2018-08-03 02:17 | NUR ---
PT RUNNING 135-152 ON TELEMETRY PER CONTINUITY PERSONJAVED. DR. HU IN ER CALLED. PT COREG AND CARDIZEM TO BE RESTARTED. 10MG BOLUS OF CARDIZEM ONE TIME TO BE GIVEN. PT ALERT AND ORIENTED. NO S/S OF DISTRESS. WILL CONTINUE TO MONITOR.
--- NOTE | 2018-08-03 03:10 | NUR ---
NURSE NOTIFIED THIS NURSE THST HR WAS 103'S TO 150'S. REVIEWED MEDICATIONS AND PT TAKES COREG AND CARDIZEM AT HOME. HAS NOT HAD ANY SINCE 07/31/18. CALLED DR. HU IN ER FOR ORDERS. NEW ORDER FOR 10MG CARDIZEM BOLUS X 1 NOW AND RESTART COREG AND CARDIZEM. BOLUS GIVEN AND HR SLOWLY DECREASING. BLOOD PRESSURES MONITORED BEFORE,DURING AND AFTER BOLUS. NO ADVERSE EFFECTS OBSERVED.
[2018-08-03 03:55] VITALS: BP 126/74
[2018-08-03 04:30] LABS: BASOPHILS 0.4 % (0-2); EOSINOPHILS 1.8 % (0-7); HEMATOCRIT 32.8 % (42.0-54.0); HEMOGLOBIN 9.7 g/dL (13.5-17.5); IMMATURE GRANULOCYTES 0.4 % (0-5); LYMPHOCYTES 12.5 % (15-50); MCH 23.6 pg (26.0-34.0); MCHC 29.6 g/dL (31.0-37.0); MCV 79.8 fL (80.0-100.0); MEAN PLATELET VOLUME 8.5 fL (7.4-10.4); NEUTROPHILS 73.9 % (40-80); PLATELET COUNT 329 10x3/uL (130-400); RBC 4.11 10x6/uL (4.20-6.10); RDW 17.3 % (11.5-14.5); WBC 8.3 10x3/uL (4.8-10.8)
--- NOTE | 2018-08-03 04:37 | NUR ---
PT RESTING IN BED WITH EYES CLOSED. RR EVEN AND UNLABORED. NO S/S OF DISTRESS. PT RUNNING UNCONTROLLED A-FIBB AT 122BPM PER PUBLIC SERVICE DIRECTOR, MAY. BED LOW CALL LIGHT WITHIN REACH. WILL CONTINUE TO MONITOR.
[2018-08-03 04:57] LABS: ALBUMIN 2.6 g/dL (3.4-5.0); ANION GAP 10.2 mmol/L (8-16); BILIRUBIN - TOTAL 0.25 mg/dL (0.2-1.3); CALCIUM 8.1 mg/dL (8.5-10.1); CARBON DIOXIDE 30.4 mmol/L (21.0-32.0); MAGNESIUM - SERUM 1.8 mg/dL (1.8-2.4); POTASSIUM - SERUM 3.6 mmol/L (3.5-5.1); PROTEIN - SERUM 7.4 g/dL (6.4-8.2)
[2018-08-03 05:04] LABS: CREATININE - SERUM 1.1 mg/dL (0.6-1.3)
--- NOTE | 2018-08-03 05:46 | NUR ---
PT 20G IV INFILTRATED. CATHETER TIP IN PLACE. PT RUNNING UNCONTROLLED A-FIBB 130-160 ON TELEMETRY PER JAN. SULTANA PURCHASE PRICE ANALYST CALLED FOR INSTRUCTIONS FOR MACHINE PACKAGER DOC. ADVISED TO GIVE MORNING MEDICATIONS. BED LOW WILL CONTINUE TO MONITOR.
--- NOTE | 2018-08-03 06:01 | NUR ---
20G IV ESTABLISHED IN PT'S RIGHT HAND. IV PATNENT . PT DENIES ANY PAIN OR NEEDS AT THIS TIME. BED LOW CALL LIGHT WITHIN REACH. WILL CONTINUE TO MONITOR.
[2018-08-03 07:56] VITALS: BP 165/76
--- NOTE | 2018-08-03 08:58 | NUR ---
AM MEDS GIVEN AT THIS TIME. PT A/O X4, RESP EVEN AND NOLABORED ON 2L. RT HAND IV INFUSING PROTONIX AT 10CC.HR. PT DENIES ANY NEEDS AT THIS TIME. CALL LIGHT IN REACH, NAD NOTED, WILL CONTINUE TO MONITOR.
[2018-08-03 13:35] VITALS: BP 142/61
--- NOTE | 2018-08-03 14:52 | NUR ---
PT RESTING COMFORTABLY IN BED, HAVING CONVERSATION WITH FAMILY. PT DENIES ANY NEEDS AT THIS TIME. CALL LIGHT IN REACH, NAD NOTED, WILL CONTINUE TO MONITOR.
[2018-08-03 18:41] LABS: HEMATOCRIT 31.4 % (42.0-54.0); HEMOGLOBIN 9.3 g/dL (13.5-17.5)
--- NOTE | 2018-08-03 19:20 | NUR ---
AWAKE WATCHING TV. A/O X4. DENIES PAIN OR ANY NEEDS. RR 20 EVEN U/L ON 02 AT 2L/NC. IV IN RT HAND INTACT WITH PROTONIX INFUSING AT 10MLHR. TELEMETRY SHOWS 95 CAFIB. HAS CL IN REACH.
--- NOTE | 2018-08-03 20:05 | NUR ---
ADMIN SCHED MEDS WITH SIPS OF WATER. NO OTHER NEEDS VOICED.
[2018-08-03 20:33] VITALS: BP 118/54
[2018-08-03 23:55] VITALS: BP 121/50
[2018-08-04] VITALS (7 sets, daily range): BP systolic 106–143; BP diastolic 46–74
--- NOTE | 2018-08-04 00:30 | NUR ---
RESTING WITH EYES CLOSED. RR 18 EVEN U/L ON O2 AT 2L/NC. NO S/S OF DISCOMFORT. CL IN REACH.
[2018-08-04 04:52] LABS: BASOPHILS 0.4 % (0-2); EOSINOPHILS 2.2 % (0-7); HEMATOCRIT 31.1 % (42.0-54.0); HEMOGLOBIN 9.1 g/dL (13.5-17.5); IMMATURE GRANULOCYTES 0.3 % (0-5); LYMPHOCYTES 13.2 % (15-50); MCH 23.3 pg (26.0-34.0); MCHC 29.3 g/dL (31.0-37.0); MCV 79.5 fL (80.0-100.0); MEAN PLATELET VOLUME 8.6 fL (7.4-10.4); MONOCYTES 10.4 % (2-11); NEUTROPHILS 73.5 % (40-80); PLATELET COUNT 325 10x3/uL (130-400); RBC 3.91 10x6/uL (4.20-6.10); WBC 7.9 10x3/uL (4.8-10.8)
--- NOTE | 2018-08-04 05:25 | NUR ---
AMBULATING BACK TO BED FROM THE BATHROOM. ADMIN SCHED MEDS. REQUESTED MORE BRIEFS.
[2018-08-04 05:33] LABS: ALBUMIN 2.4 g/dL (3.4-5.0); ALKALINE PHOSPHATASE 133 U/L (46-116); ALT (SGPT) 20 U/L (10-68); CALC OSMOLALITY 278 mosm/kg (275-300); CALCIUM 8.2 mg/dL (8.5-10.1); CARBON DIOXIDE 30.6 mmol/L (21.0-32.0); CHLORIDE - SERUM 103 mmol/L (98-107); CREATININE - SERUM 0.9 mg/dL (0.6-1.3); GLUCOSE 100 mg/dL (74-106); MAGNESIUM - SERUM 1.6 mg/dL (1.8-2.4); POTASSIUM - SERUM 3.6 mmol/L (3.5-5.1); PROTEIN - SERUM 7.2 g/dL (6.4-8.2); SODIUM 139 mmol/L (136-145); UREA NITROGEN 15 mg/dL (7-18); eGFR NON AFRICAN AMERICAN 89 mL/min (90-120)
--- NOTE | 2018-08-04 06:25 | NUR ---
ADMIN MAGNESIUM 400 MG PO FOR LAB VALUE 1.6.
--- NOTE | 2018-08-04 11:08 | NUR ---
ALERT AND ORIENTED X4. RESTING IN BED. FAMILY AT BEDSIDE. D-DIMER 6.38 CALLED TO VERENA RIVERO. WAITING FOR REGARDING DISCHARGE. DENIES ANY NEEDS. CONTINUE PLAN OF CARE AND SAFETY PRECAUTIONS.
--- NOTE | 2018-08-04 18:17 | NUR ---
ALERT AND ORIENTED X4. RESTING IN BED. UNABLE TO DO CTA WITH 20G IN RT HAND. RESITE IV TO LT FA 20G SUCCESSFUL X1 ATTEMPT. NOTIFY CHIEF MECHANICAL ENGINEER OF NEW IV SITE TO PROCEED WITH EXAM. DENIES ANY NEEDS. O2 @ 93% RA. CONTINUE PLAN OF CARE AND SAFETY PRECAUTIONS.
--- NOTE | 2018-08-04 19:27 | NUR ---
INITIAL REPORT/ROUNDS COMPLETED. PT NOW BEING TAKEN TO RADIOLOGY FOR CTA TO BE PERFORMED.
--- NOTE | 2018-08-04 20:55 | NUR ---
PT RETURNED FROM CTA AND IV TO LFA WAS NOW NO LONGER PATENT. REMOVED IV. STILL HAS PIV TO RIGHT HAND WITH PROTONIX DRIP INFUSING. BEDTIME MEDS GIVEN. CALL LIGHT IN REACH.
[2018-08-05 03:55] VITALS: BP 134/50
--- NOTE | 2018-08-05 04:18 | NUR ---
PT RESTING IN BED WITH EYES CLOSED. RESPS EVEN/NONLABORED. NO DISTRESS. MONITOR AND CPOC.
[2018-08-05 04:38] LABS: BASOPHILS 0.2 % (0-2); HEMATOCRIT 30.3 % (42.0-54.0); HEMOGLOBIN 8.9 g/dL (13.5-17.5); IMMATURE GRANULOCYTES 0.5 % (0-5); LYMPHOCYTES 13.4 % (15-50); MCH 23.4 pg (26.0-34.0); MCHC 29.4 g/dL (31.0-37.0); MCV 79.7 fL (80.0-100.0); MEAN PLATELET VOLUME 8.8 fL (7.4-10.4); MONOCYTES 10.4 % (2-11); NEUTROPHILS 73.5 % (40-80); PLATELET COUNT 333 10x3/uL (130-400); RDW 17.1 % (11.5-14.5); WBC 8.5 10x3/uL (4.8-10.8)
[2018-08-05 05:06] LABS: ALBUMIN 2.5 g/dL (3.4-5.0); ALKALINE PHOSPHATASE 142 U/L (46-116); BILIRUBIN - TOTAL 0.39 mg/dL (0.2-1.3); CALC OSMOLALITY 277 mosm/kg (275-300); CALCIUM 8.4 mg/dL (8.5-10.1); CARBON DIOXIDE 33.8 mmol/L (21.0-32.0); CHLORIDE - SERUM 101 mmol/L (98-107); CREATININE - SERUM 0.8 mg/dL (0.6-1.3); GLUCOSE 106 mg/dL (74-106); MAGNESIUM - SERUM 1.8 mg/dL (1.8-2.4); POTASSIUM - SERUM 3.7 mmol/L (3.5-5.1); PROTEIN - SERUM 7.4 g/dL (6.4-8.2); SODIUM 139 mmol/L (136-145); UREA NITROGEN 13 mg/dL (7-18); eGFR NON AFRICAN AMERICAN > 90 mL/min (90-120)
[2018-08-05 05:23] LABS: ALT (SGPT) 21 U/L (10-68)
--- NOTE | 2018-08-05 07:30 | NUR ---
A/A/OX4. DENIES ANY PAIN OR DISCOMFORT AND WONDERING WHEN HE WILL BE ABLE TO GO HOME. NO REQUESTS MADE KNOWN. BED LOCKED IN LOW POSITION WITH SIDERAILS UP X 2 AND CALL LIGHT IN REACH. ASSESSMENT COMPLETED.L WILL CONTINUE POC.
[2018-08-05 09:11] VITALS: BP 113/59
--- NOTE | 2018-08-05 10:23 | NUR ---
Nutrition follow-up: Visited with pt during rounds. Pt is happy with meals and has a very good appetite at this time. Diet: ADA consistent CHO PO intake 100% of meals Labs reviewed Wt: 368# RDN following.
--- NOTE | 2018-08-05 10:44 | NUR ---
I have reviewed this patient and I concur with the Shift Assessment completed by the Licensed Practical Nurse today this shift.
[2018-08-05 12:15] VITALS: BP 128/52
--- NOTE | 2018-08-05 13:38 | NUR ---
I have reviewed this patient and I concur with the Shift Assessment completed by the Licensed Practical Nurse today this shift.
[2018-08-05 15:13] VITALS: BP 121/58
[2018-08-05 17:08] LABS: SPE - A/G RATIO 0.7 (0.7-1.7); SPE - ALBUMIN 2.9 g/dL (2.9-4.4); SPE - ALPHA-1 GLOBULIN 0.4 g/dL (0.0-0.4); SPE - ALPHA-2 GLOBULIN 0.9 g/dL (0.4-1.0); SPE - GAMMA GLOBULIN 1.6 g/dL (0.4-1.8); SPE - M-SPIKE Not Observed g/dL (Not Observed); SPE - TOTAL PROTEIN 6.9 g/dL (6.0-8.5)
[2018-08-05 17:21] LABS: INR 1.38 (0.85-1.17); PROTIME 16.4 SECONDS (11.6-15.0)
--- NOTE | 2018-08-05 19:26 | NUR ---
INITIAL ROUNDS COMPLETED. PT RESTING IN BED. AWAKE AND ALERT. IV PROTONIX DRIP INFUSING TO RIGHT HAND. 02 @ 2L/NC WITH NONLABORED RESPIRATIONS. SEE ASSESSMENT. MONITOR AND CPOC.
--- NOTE | 2018-08-05 20:27 | NUR ---
BEDTIME MEDS GIVEN. REDRESSED PIV TO RIGHT HAND. IV PROTONIX INFUSING. PT WATCHING TV.
[2018-08-05 20:54] VITALS: BP 125/57
[2018-08-06 01:17] VITALS: BP 118/54
--- NOTE | 2018-08-06 05:27 | NUR ---
PT HAS RESTED THIS NIGHT WITH NO DISTRESS. IV PROTONIX INFUSING. MONITOR AND CPOC.
[2018-08-06 05:53] VITALS: BP 116/63
[2018-08-06 06:20] LABS: INR 1.4 (0.85-1.17); PROTIME 16.6 SECONDS (11.6-15.0)
[2018-08-06 06:37] LABS: ALBUMIN 2.6 g/dL (3.4-5.0); ALKALINE PHOSPHATASE 147 U/L (46-116); ALT (SGPT) 22 U/L (10-68); BILIRUBIN - TOTAL 0.28 mg/dL (0.2-1.3); CALC OSMOLALITY 280 mosm/kg (275-300); CALCIUM 8.4 mg/dL (8.5-10.1); CARBON DIOXIDE 31.8 mmol/L (21.0-32.0); CHLORIDE - SERUM 100 mmol/L (98-107); CREATININE - SERUM 0.9 mg/dL (0.6-1.3); GLUCOSE 111 mg/dL (74-106); MAGNESIUM - SERUM 1.7 mg/dL (1.8-2.4); POTASSIUM - SERUM 3.8 mmol/L (3.5-5.1); PROTEIN - SERUM 7.4 g/dL (6.4-8.2); SODIUM 140 mmol/L (136-145); UREA NITROGEN 16 mg/dL (7-18); eGFR NON AFRICAN AMERICAN 89 mL/min (90-120)
[2018-08-06 06:58] LABS: BASOPHILS 0.3 % (0-2); EOSINOPHILS 1.3 % (0-7); HEMATOCRIT 31.7 % (42.0-54.0); HEMOGLOBIN 9.2 g/dL (13.5-17.5); IMMATURE GRANULOCYTES 0.2 % (0-5); LYMPHOCYTES 11.7 % (15-50); MCH 23.2 pg (26.0-34.0); MCV 79.8 fL (80.0-100.0); MEAN PLATELET VOLUME 8.9 fL (7.4-10.4); MONOCYTES 10.3 % (2-11); NEUTROPHILS 76.2 % (40-80); PLATELET COUNT 367 10x3/uL (130-400); RBC 3.97 10x6/uL (4.20-6.10); RDW 17.1 % (11.5-14.5); WBC 8.9 10x3/uL (4.8-10.8)
[2018-08-06 10:04] VITALS: BP 123/65
--- NOTE | 2018-08-06 10:37 | NUR ---
ALERT AND ORIENTED X4. AMBULATES TO RESTROOM. SPOKE WITH NARCISA WEBB IN IR REGARDING LIVER BIOPSY. PROCEDURE HELD DUE TO COUMADIN ADMINISTERED 08/05/18. RESUME DIABETIC DIET. DENIES ANY NEEDS. UNCONTROLLED AFIB 111 ON TELEMETRY. CONTINUE PLAN OF CARE AND SAFETY PRECAUTIONS.
[2018-08-06 16:47] VITALS: BP 124/75
--- NOTE | 2018-08-06 16:54 | NUR ---
ALERT AND ORIENTED X4. SITTING UP IN BED. CONSENTS FOR LIVER BIOPSY SIGNED ON CHART. DENIES SOB OR PAIN. UNCONTROLLED AFIB 103 ON TELEMETRY. CONTINUE PLAN OF CARE AND SAFETY PRECAUTIONS.
--- NOTE | 2018-08-06 19:03 | NUR ---
RESTING WITH EYES CLOSED AND NOT EASILY AROUSED BUT BECAME ALERT AND IS ORIENTED X4 SR X2 AND BED IS IN THE LOW POSITION CALL LIGHT IS WITHIN REACH OF PT. GENERALISED EDEMA WITH SLIGHT PITTING IN LOWERE EXTREMITIES PULSES PAPABLE. O2 2L/NC IN PLACE RT HAND IV PATENT AND INFUSING MED. LCTA UPPER BASES NOT HEARD IN LOWER BASES. DENIES PAIN OR NEEDS AT THIS TIME
[2018-08-06 20:35] VITALS: BP 139/71
--- NOTE | 2018-08-06 21:38 | NUR ---
MED FINISHED STOPPED AND FLUSHED IV SITE
--- NOTE | 2018-08-06 22:30 | NUR ---
NOTED THAT PROTONIX DRIP NEEDS TO CONTINUE WILL DO SO AT THIS TIME
[2018-08-07] VITALS (13 sets, daily range): BP systolic 96–170; BP diastolic 56–84
[2018-08-07 07:47] LABS: BASOPHILS 0.3 % (0-2); EOSINOPHILS 1.5 % (0-7); HEMATOCRIT 31.6 % (42.0-54.0); HEMOGLOBIN 9.2 g/dL (13.5-17.5); IMMATURE GRANULOCYTES 0.2 % (0-5); MCH 23.2 pg (26.0-34.0); MCHC 29.1 g/dL (31.0-37.0); MCV 79.8 fL (80.0-100.0); MEAN PLATELET VOLUME 8.8 fL (7.4-10.4); MONOCYTES 9.4 % (2-11); NEUTROPHILS 74.6 % (40-80); PLATELET COUNT 344 10x3/uL (130-400); RBC 3.96 10x6/uL (4.20-6.10); RDW 17.1 % (11.5-14.5); WBC 8.7 10x3/uL (4.8-10.8)
--- NOTE | 2018-08-07 08:00 | NUR ---
PT RESTING IN BED. SHIFT ASSESSMENT PERFORMED. DENIES ANY NEEDS AT THIS TIME, CALL LIGHT WITHIN REACH. WILL CONT TO FOLLOW PLAN OF CARE
[2018-08-07 08:06] LABS: CALC OSMOLALITY 282 mosm/kg (275-300); CALCIUM 8.6 mg/dL (8.5-10.1); CARBON DIOXIDE 33.5 mmol/L (21.0-32.0); CHLORIDE - SERUM 102 mmol/L (98-107); CREATININE - SERUM 0.8 mg/dL (0.6-1.3); GLUCOSE 109 mg/dL (74-106); POTASSIUM - SERUM 3.9 mmol/L (3.5-5.1); SODIUM 141 mmol/L (136-145); UREA NITROGEN 14 mg/dL (7-18); eGFR NON AFRICAN AMERICAN > 90 mL/min (90-120)
[2018-08-07 08:08] LABS: INR 1.34 (0.85-1.17); PROTIME 16.1 SECONDS (11.6-15.0)
--- NOTE | 2018-08-07 13:49 | MORECARE ---
CASE MANAGEMENT DISCHARGE SUMMARY PATIENT: PARESH SANCHEZ UNIT: [id number] ADM DATE: 08/03/18 AGE: 67 : 48 SEX: M ROOM/BED: D.2101 AUTHOR: JARRELLDOC PHYSICIAN: REFERRING PHYSICIAN: ODIN ZULETA MD DATE OF SERVICE: 08/07/18 Discharge Plan Patient Name: PARESH SANCHEZ Facility: [facility]:[place] : 1950 Planned Disposition: Home Anticipated Discharge Date: Discharge Date: Expected LOS: Initial Reviewer: [id number] Initial Review Date: 08/01/2018 Generated: 08/07/18 2:49 pm DCPIA - Discharge Planning Initial Assessment Updated by [email or web address]: Oc Og on 08/07/18 1:44 pm * Is the patient Alert and Oriented? Yes * How many steps to enter\\exit or inside your home? * PCP DR. ZULETA * Pharmacy [facility] * Preadmission Environment Home Alone * ADLs Independent * Equipment CPAP Glucometer Walker Wheelchair * Other Equipment NO MEDICAL EQUIPMENT PROVIDER PREFERENCE * List name and contact numbers for known caregivers / representatives who currently or will assist patient after discharge: STEFANIA DUPREE, FRIEND, * Verbal permission to speak to the caregivers and representatives has been obtained from the patient. N/A * Community resources currently utilized None * Please name any agencies selected above. NONE * Additional services required to return to the preadmission environment? No * Can the patient safely return to the preadmission environment? Yes * Has this patient been hospitalized within the prior 30 days at any hospital? No Coverage Notice Reviewer: [id number] - [facility] Notice Issued Date-Time: 08/01/2018 13:50 Notice Type: Medicare Outpatient Observation Notice Notice Delivered To: Patient Relationship to Patient: Self Plans Examiner Name: Delivery Method: HAND - Hand Delivered Melissa Days: Prior Verbal Notification: Recipient Understood Notice: Yes Recipient Signature: Yes Med Rec Note Co-signed by Attending: Coverage Notice Comment: SPOKE WITH THE PATIENT AND HIS TWO FRIENDS, SABINO ROMO AND JELANI ("HER SISTER"), AFTER VERBAL CONSENT WAS OBTAINED. Last DP export: 08/01/18 1:11 p Patient Name: PARESH SANCHEZ Page [id number] at 1349 All edits/amendments must be made on the electronic document DICTATION DATE: 08/07/181348 FOLDER OPERATOR: ADELA 08/07/181348 RPT#: [id number] DC DATE: STATUS: ADM IN [facility] [address] [place] [address] END OF REPORT
--- NOTE | 2018-08-07 14:02 | MORECARE ---
CASE MANAGEMENT DISCHARGE SUMMARY PATIENT: PARESH SANCHEZ UNIT: [id number] ADM DATE: 08/03/18 AGE: 67 : 48 SEX: M ROOM/BED: D.2101 AUTHOR: JARRELL,DOC PHYSICIAN: REFERRING PHYSICIAN: ODIN ZULETA MD DATE OF SERVICE: 08/07/18 Discharge Plan Patient Name: PARESH SANCHEZ Facility: [facility]:[place] : 1950 Planned Disposition: Home Anticipated Discharge Date: Discharge Date: Expected LOS: Initial Reviewer: [email or web address] Initial Review Date: 08/01/2018 Generated: 08/07/18 3:01 pm Comments DCP- Discharge Planning Updated by [id number]: Oc Og on 08/07/18 12:[address] Patient Name: PARESH SANCHEZ Admission Status: ER Accout number: [id number] Admission Date: 08-03-2018 : 1950 Admission Diagnosis: Attending: ODNI ZULETA Current LOS: 4 Anticipated DC Date: Planned Disposition: Home Primary Insurance: [employer] MEDICARE ADV Discharge Planning Comments: CM MET WITH PT IN ROOM TO DISCUSS DISCHARGE PLANNING AND NEEDS. PT REPORTS LIVING AT HOME INDEPENDENTLY AND ALONE. PT HAS CANE, GLUCOMETER, CPAP, WALKER AND WHEELCHAIR WITH NO MEDICAL EQUIPMENT PROVIDER PREFERENCE. PT HAS NO OUTSIDE SERVICES ASSISTING IN THE HOME. CM DISCUSSED AVAILABILITY OF HOME HEALTH, REHAB SERVICES AND MEDICAL EQUIPMENT. PT DENIES DISCHARGE NEEDS, REPORTS HIS FRIEND WILL PICK HIM UP FOR DISCHARGE HOME. IMPORTANT MESSAGE FROM MEDICARE PROVIDED AND EXPLAINED. PT PLANS TO DISCHARGE HOME ALONE, DENIES DISCHARGE NEEDS AT THIS TIME. CM TO CONTINUE TO FOLLOW AND ASSIST IF NEEDED. Client Server Developer: Oc Og DCPIA - Discharge Planning Initial Assessment Updated by [email or web address]: Oc Og on 08/07/18 1:44 pm * Is the patient Alert and Oriented? Yes * How many steps to enter\\exit or inside your home? * PCP DR. ZULETA * Pharmacy [facility] * Preadmission Environment Home Alone * ADLs Independent * Equipment CPAP Glucometer Walker Wheelchair * Other Equipment NO MEDICAL EQUIPMENT PROVIDER PREFERENCE * List name and contact numbers for known caregivers / representatives who currently or will assist patient after discharge: STEFANIA DUPREE, FRIEND, * Verbal permission to speak to the caregivers and representatives has been obtained from the patient. N/A * Community resources currently utilized None * Please name any agencies selected above. NONE * Additional services required to return to the preadmission environment? No * Can the patient safely return to the preadmission environment? Yes * Has this patient been hospitalized within the prior 30 days at any hospital? No Coverage Notice Reviewer: [id number] Princess Cardona Notice Issued Date-Time: 08/01/2018 13:50 Notice Type: Medicare Outpatient Observation Notice Notice Delivered To: Patient Relationship to Patient: Self Mortgage Loan Officer Name: Delivery Method: HAND - Hand Delivered Melissa Days: Prior Verbal Notification: Recipient Understood Notice: Yes Recipient Signature: Yes Med Rec Note Co-signed by Attending: Coverage Notice Comment: SPOKE WITH THE PATIENT AND HIS TWO FRIENDS, SABINO RMOO AND JELANI ("HER SISTER"), AFTER VERBAL CONSENT WAS OBTAINED. Last DP export: 08/07/18 12:49 p Patient Name: PARESH SANCHEZ Page [phone] at 1402 All edits/amendments must be made on the electronic document DICTATION DATE: 08/07/18 1401 WAFER BATTER MIXER: ADELA 08/07/18 1401 RPT#: [id number] DC DATE: STATUS: ADM IN [facility] [address] [place] [address] END OF REPORT
--- NOTE | 2018-08-07 14:20 | NUR ---
PT LEFT FOR LIVER BIOPSY.
--- NOTE | 2018-08-07 15:00 | NUR ---
PT RETURNED FROM LIVER BIOPSY. DRESSING TO ABD. CLEAN DRY AND INTACT. VSS AND WNL. DENIES PAIN AT THIS TIME, WILL CONT TO MONITOR
--- NOTE | 2018-08-07 17:29 | NUR ---
PT RESTING IN BED WATCHING TV. DRESSING TO ABD CLEAN, DRY, INTACT. CALL LIGHT WITHIN REACH. DENIES PAIN AT THIS TIME, DENIES ANY OTHER NEEDS AT THIS TIME, WILL CONT TO FOLLOW PLAN OF CARE
--- NOTE | 2018-08-07 19:45 | NUR ---
RESUMING PT CARE. PT ALERT LAYING IN BED WATCHING TV. NO C/O VOICED AT THIS TIME. RESPIRATIONS EVEN AND UNLABORED. NO S/S OF DISTRESS NOTED. PT HAS A IV IN THE RIGHT FOREARM. PROTNIX INFUSING AT 10ML/HR. PTIS ON ROOM AIR. BED IN LOW POSITION WITH CALL LIGHT IN REACH. SIDE RAILS UP X 2. WILL CONTINUE TO MONITOR PT AND FOLLOW PLAN OF CARE.
--- NOTE | 2018-08-08 04:17 | NUR ---
PT LAYING IN BED RESTING COMFORTABLY WITH EYES CLOSED. RESPIRATIONS EVEN AND UNLABORED. NO S/S OF DISTRESS. BED IN LOW POSITION WITH CALL LIGHT IN REACH. SIDE RAILS UP X 2. WILL CONTINUE TO MONITOR PT AND FOLLOW PLAN OF CARE.
--- NOTE | 2018-08-08 04:23 | NUR ---
I have reviewed this patient and I concur with the Shift Assessment completed by the Licensed Practical Nurse today this shift.
[2018-08-08 06:00] LABS: BASOPHILS 0.2 % (0-2); EOSINOPHILS 1.3 % (0-7); HEMATOCRIT 31.8 % (42.0-54.0); HEMOGLOBIN 9.3 g/dL (13.5-17.5); IMMATURE GRANULOCYTES 0.3 % (0-5); LYMPHOCYTES 9.3 % (15-50); MCH 23.3 pg (26.0-34.0); MCHC 29.2 g/dL (31.0-37.0); MCV 79.5 fL (80.0-100.0); MEAN PLATELET VOLUME 8.8 fL (7.4-10.4); MONOCYTES 9.9 % (2-11); PLATELET COUNT 368 10x3/uL (130-400); WBC 9.3 10x3/uL (4.8-10.8)
[2018-08-08 06:06] VITALS: BP 97/67
[2018-08-08 06:16] LABS: CALC OSMOLALITY 281 mosm/kg (275-300); CALCIUM 8.6 mg/dL (8.5-10.1); CARBON DIOXIDE 35.3 mmol/L (21.0-32.0); CHLORIDE - SERUM 99 mmol/L (98-107); CREATININE - SERUM 0.8 mg/dL (0.6-1.3); GLUCOSE 111 mg/dL (74-106); SODIUM 140 mmol/L (136-145); UREA NITROGEN 17 mg/dL (7-18); eGFR NON AFRICAN AMERICAN > 90 mL/min (90-120)
--- NOTE | 2018-08-08 09:00 | NUR ---
PT RESTING IN BED. CALL LIGHT WITHIN REACH. DENIES PAIN AT THIS PAIN, DENIES NEEDS AT THIS TIME. WILL CONT TO FOLLOW PLAN OF CARE
[2018-08-08 09:06] VITALS: BP 119/53
[2018-08-08] MEDS ORDERED: CARAFATE1 G PO (11:41)
[2018-08-08] MEDS ORDERED: PROTONIX40 MG PO (11:41)
[2018-08-08 13:02] VITALS: BP 136/64
--- NOTE | 2018-08-08 13:09 | NUR ---
PAGED AT CLINIC TO INQUIRE ABOUT DISCHARGE. HE IS FINE WITH IT AND CAN F/U WITH GI FOR BIOPSY RESULTS.
--- NOTE | 2018-08-08 14:57 | NUR ---
DISCHARGE INSTRUCTIONS REVIEWED WITH PT AND ALL QUESTIONS ANSWERED. PIV REMOVED WITH CATHETER TIP INTACT. TELEMETRY REMOVED AND GIVEN TO AUTO BUMPER STRAIGHTENER. PT TAKEN TO FRONT OF HOSPITAL VIA WHEELCHAIR. PT LEFT WITH CAREGIVER
--- NOTE | 2018-08-08 16:02 | MORECARE ---
CASE MANAGEMENT DISCHARGE SUMMARY PATIENT: PARESH SANCHEZ UNIT: [id number] ADM DATE: 08/03/18 AGE: 67 : 48 SEX: M ROOM/BED: D.2101 AUTHOR: JARRELL,DOC PHYSICIAN: REFERRING PHYSICIAN: ODIN ZULETA MD DATE OF SERVICE: 08/08/18 Discharge Plan Patient Name: PARESH SANCHEZ Facility: [facility]:[place] : 1950 Planned Disposition: Home Anticipated Discharge Date: 08/08/18 Discharge Date: 08/08/2018 Expected LOS: 5 Initial Reviewer: [email or web address] Initial Review Date: 08/01/2018 Generated: 08/08/18 5:02 pm Comments DCP- Discharge Planning Updated by [email or web address]: Oc Og on 08/07/18 12:[address] Patient Name: PARESH SANCHEZ Admission Status: ER Accout number: [id number] Admission Date: 08-03-2018 : 1950 Admission Diagnosis: Attending: ODIN ZULETA Current LOS: 4 Anticipated DC Date: Planned Disposition: Home Primary Insurance: [facility] MEDICARE ADV Discharge Planning Comments: CM MET WITH PT IN ROOM TO DISCUSS DISCHARGE PLANNING AND NEEDS. PT REPORTS LIVING AT HOME INDEPENDENTLY AND ALONE. PT HAS CANE, GLUCOMETER, CPAP, WALKER AND WHEELCHAIR WITH NO MEDICAL EQUIPMENT PROVIDER PREFERENCE. PT HAS NO OUTSIDE SERVICES ASSISTING IN THE HOME. CM DISCUSSED AVAILABILITY OF HOME HEALTH, REHAB SERVICES AND MEDICAL EQUIPMENT. PT DENIES DISCHARGE NEEDS, REPORTS HIS FRIEND WILL PICK HIM UP FOR DISCHARGE HOME. IMPORTANT MESSAGE FROM MEDICARE PROVIDED AND EXPLAINED. PT PLANS TO DISCHARGE HOME ALONE, DENIES DISCHARGE NEEDS AT THIS TIME. CM TO CONTINUE TO FOLLOW AND ASSIST IF NEEDED. Clothing Examiner: Oc Og DCPIA - Discharge Planning Initial Assessment Updated by [id number]: Oc Og on 08/07/18 1:44 pm * Is the patient Alert and Oriented? Yes * How many steps to enter\\exit or inside your home? * PCP DR. ZULETA * Pharmacy [facility] * Preadmission Environment Home Alone * ADLs Independent * Equipment CPAP Glucometer Walker Wheelchair * Other Equipment NO MEDICAL EQUIPMENT PROVIDER PREFERENCE * List name and contact numbers for known caregivers / representatives who currently or will assist patient after discharge: STEFANIA DUPREE, FRIEND, * Verbal permission to speak to the caregivers and representatives has been obtained from the patient. N/A * Community resources currently utilized None * Please name any agencies selected above. NONE * Additional services required to return to the preadmission environment? No * Can the patient safely return to the preadmission environment? Yes * Has this patient been hospitalized within the prior 30 days at any hospital? No Coverage Notice Reviewer: [id number] Princess Cardona Notice Issued Date-Time: 08/01/2018 13:50 Notice Type: Medicare Outpatient Observation Notice Notice Delivered To: Patient Relationship to Patient: Self Electric Train Driver Name: Delivery Method: HAND - Hand Delivered Melissa Days: Prior Verbal Notification: Recipient Understood Notice: Yes Recipient Signature: Yes Med Rec Note Co-signed by Attending: Coverage Notice Comment: SPOKE WITH THE PATIENT AND HIS TWO FRIENDS, SABINO ROMO AND JELANI ("HER SISTER"), AFTER VERBAL CONSENT WAS OBTAINED. Reviewer: [id number] - Oc Og Notice Issued Date-Time: 08/08/2018 13:20 Notice Type: IM Discharge Notice Notice Delivered To: Patient Relationship to Patient: Electric Train Driver Name: Delivery Method: HAND - Hand Delivered Melissa Days: Prior Verbal Notification: Recipient Understood Notice: Yes Recipient Signature: Yes Med Rec Note Co-signed by Attending: Coverage Notice Comment: Last DP export: 08/07/18 1:02 p Patient Name: PARESH SANCHEZ Page [phone] at 1602 All edits/amendments must be made on the electronic document DICTATION DATE: 08/08/18 1602 GRAIN I FARMWORKER: ADELA 08/08/18 1602 RPT#: [id number] DC DATE:08/08/18 STATUS: DIS IN [facility] [address] [place] [address] END OF REPORT
--- NOTE | 2018-08-08 16:15 | MORECARE ---
CASE MANAGEMENT DISCHARGE SUMMARY PATIENT: PARESH SANCHEZ UNIT: [id number] ADM DATE: 08/03/18 AGE: 67 : 48 SEX: M ROOM/BED: D.2101 AUTHOR: LIZETTE VIEYRA PHYSICIAN: REFERRING PHYSICIAN: ODIN ZULETA MD DATE OF SERVICE: 08/08/18 Discharge Plan Patient Name: PARESH SANCHEZ Facility: [facility]:[place] : 1950 Planned Disposition: Home Anticipated Discharge Date: 08/08/18 Discharge Date: 08/08/2018 Expected LOS: 5 Initial Reviewer: [id number] Initial Review Date: 08/01/2018 Generated: 08/08/18 5:14 pm Comments DCP- Discharge Planning Updated by [id number]: Oc Og on 08/08/18 3:[address] Patient Name: PARESH SANCHEZ Encounter No: [id number] : 1950 Primary Insurance: [employer] MEDICARE ADV Anticipated DC Date: 08-08-2018 Planned Disposition: Home DCP follow-up note: CM MET WITH PT IN ROOM TO DISCUSS DISCHARGE NEEDS AND PLANNING. CM DISCUSSED AVAILABILITY OF HOME HEALTH, REHAB SERVICES AND MEDICAL EQUIPMENT. PT DENIES DISCHARGE NEEDS. FRIEND TO TRANSPORT HOME AT DISCHARGE. IMPORTANT MESSAGE FROM MEDICARE PROVIDED AND EXPLAINED. PT REPORTS COMPLAINT THAT HIS NIGHT NURSE WAS NOT FRIENDLY ENOUGH, HE HAS NOT TALKED TO ANYONE AND WOULD LIKE TO. CM NOTIFIED [facility] 2 DIRECTOR NURSE JUANY. Oc Og, CASE MANAGEMENT DCP- Discharge Planning Updated by [id number]: Oc Og on 08/07/18 12:[address] Patient Name: PARESH SANCHEZ Admission Status: ER Accout number: [id number] Admission Date: 08-03-2018 : 1950 Admission Diagnosis: Attending: ODIN ZULETA Current LOS: 4 Anticipated DC Date: Planned Disposition: Home Primary Insurance: [employer] MEDICARE ADV Discharge Planning Comments: CM MET WITH PT IN ROOM TO DISCUSS DISCHARGE PLANNING AND NEEDS. PT REPORTS LIVING AT HOME INDEPENDENTLY AND ALONE. PT HAS CANE, GLUCOMETER, CPAP, WALKER AND WHEELCHAIR WITH NO MEDICAL EQUIPMENT PROVIDER PREFERENCE. PT HAS NO OUTSIDE SERVICES ASSISTING IN THE HOME. CM DISCUSSED AVAILABILITY OF HOME HEALTH, REHAB SERVICES AND MEDICAL EQUIPMENT. PT DENIES DISCHARGE NEEDS, REPORTS HIS FRIEND WILL PICK HIM UP FOR DISCHARGE HOME. IMPORTANT MESSAGE FROM MEDICARE PROVIDED AND EXPLAINED. PT PLANS TO DISCHARGE HOME ALONE, DENIES DISCHARGE NEEDS AT THIS TIME. CM TO CONTINUE TO FOLLOW AND ASSIST IF NEEDED. Bakeshop Cleaner: Oc Og DCPIA - Discharge Planning Initial Assessment Updated by [id number]: Oc Og on 08/07/18 1:44 pm * Is the patient Alert and Oriented? Yes * How many steps to enter\\exit or inside your home? * PCP DR. ZULETA * Pharmacy [facility] * Preadmission Environment Home Alone * ADLs Independent * Equipment CPAP Glucometer Walker Wheelchair * Other Equipment NO MEDICAL EQUIPMENT PROVIDER PREFERENCE * List name and contact numbers for known caregivers / representatives who currently or will assist patient after discharge: STEFANIA DUPREE, FRIEND, * Verbal permission to speak to the caregivers and representatives has been obtained from the patient. N/A * Community resources currently utilized None * Please name any agencies selected above. NONE * Additional services required to return to the preadmission environment? No * Can the patient safely return to the preadmission environment? Yes * Has this patient been hospitalized within the prior 30 days at any hospital? No Coverage Notice Reviewer: [id number] - Emelina Cardona Notice Issued Date-Time: 08/01/2018 13:50 Notice Type: Medicare Outpatient Observation Notice Notice Delivered To: Patient Relationship to Patient: Self Structurer Name: Delivery Method: HAND - Hand Delivered Melissa Days: Prior Verbal Notification: Recipient Understood Notice: Yes Recipient Signature: Yes Med Rec Note Co-signed by Attending: Coverage Notice Comment: SPOKE WITH THE PATIENT AND HIS TWO FRIENDS, SABINO ROMO AND JELANI ("HER SISTER"), AFTER VERBAL CONSENT WAS OBTAINED. Reviewer: [id number] - Oc Og Notice Issued Date-Time: 08/08/2018 13:20 Notice Type: IM Discharge Notice Notice Delivered To: Patient Relationship to Patient: Structurer Name: Delivery Method: HAND - Hand Delivered Melissa Days: Prior Verbal Notification: Recipient Understood Notice: Yes Recipient Signature: Yes Med Rec Note Co-signed by Attending: Coverage Notice Comment: Last DP export: 08/08/18 3:02 p Patient Name: PARESH SANCHEZ Page [id number] at 1615 All edits/amendments must be made on the electronic document DICTATION DATE: 08/08/181613 DRUG AND ALCOHOL COUNSELLOR: ADELA 08/08/181613 RPT#: [id number] DC DATE:08/08/18 STATUS: DIS IN [facility] [address] [place] [address] END OF REPORT
== END 2018-08-08 15:07 | disposition home or self-care (01) | DRG 391 ==
LOC: D.ER 01:56 → D.M2 02:55 → OBSVTIME 02:55 → D.M2 08-03 16:59
PROVIDERS: Family Medicine; Internal Medicine Gastroenterology; Internal Medicine Nephrology; Radiology Vascular & Interventional Radiology; ADMIT Family Medicine; ATTEND Family Medicine
PROC: 0DB68ZX Excision of Stomach, Via Natural or Artificial Opening Endoscopic, Diagnostic (ICD-10-PCS; 2018-08-02)
PROC: 0DB58ZX Excision of Esophagus, Via Natural or Artificial Opening Endoscopic, Diagnostic (ICD-10-PCS; principal; 2018-08-02 09:30)
PROC: 0FB23ZX Excision of Left Lobe Liver, Percutaneous Approach, Diagnostic (ICD-10-PCS; 2018-08-07)
DX: K22.8 Other specified diseases of esophagus (principal); K25.4 Chronic or unspecified gastric ulcer with hemorrhage; K29.81 Duodenitis with bleeding; D62 Acute posthemorrhagic anemia; I48.2 Chronic atrial fibrillation; G47.33 Obstructive sleep apnea (adult) (pediatric); I25.10 Atherosclerotic heart disease of native coronary artery without angina pectoris; E78.5 Hyperlipidemia, unspecified; E11.65 Type 2 diabetes mellitus with hyperglycemia; K76.9 Liver disease, unspecified; I11.0 Hypertensive heart disease with heart failure; I50.9 Heart failure, unspecified; I25.2 Old myocardial infarction; Z86.73 Personal history of transient ischemic attack (TIA), and cerebral infarction without residual deficits; Z95.0 Presence of cardiac pacemaker

== ENCOUNTER 2018-09-04 06:00 | Day surgery (SDC) | payer MEDICARE ==
--- NOTE | 2018-09-03 11:18 | NUR ---
JAIME NOTE: DR. LA'S NURSE, PIERRE, NOTIFIED PATIENT CURRENTLY TAKING WARFARIN 10MG DAILY WITH LAST DOSE 09/02/18 PM. STATES SHE WILL INFORM DR. LA.
[2018-09-03 11:27] LABS: BASOPHILS 0.2 % (0-2); EOSINOPHILS 1.1 % (0-7); HEMOGLOBIN 8.9 g/dL (13.5-17.5); IMMATURE GRANULOCYTES 0.3 % (0-5); LYMPHOCYTES 13.1 % (15-50); MCH 23.1 pg (26.0-34.0); MCHC 29.7 g/dL (31.0-37.0); MCV 77.9 fL (80.0-100.0); MONOCYTES 8.5 % (2-11); NEUTROPHILS 76.8 % (40-80); RBC 3.85 10x6/uL (4.20-6.10); RDW 17.8 % (11.5-14.5); WBC 6.6 10x3/uL (4.8-10.8)
[2018-09-03 11:39] LABS: CALC OSMOLALITY 279 mosm/kg (275-300); CALCIUM 8.3 mg/dL (8.5-10.1); CARBON DIOXIDE 31.4 mmol/L (21.0-32.0); CHLORIDE - SERUM 102 mmol/L (98-107); GLUCOSE 101 mg/dL (74-106); POTASSIUM - SERUM 3.2 mmol/L (3.5-5.1); SODIUM 141 mmol/L (136-145); UREA NITROGEN 11 mg/dL (7-18); eGFR NON AFRICAN AMERICAN 78 mL/min (90-120)
[2018-09-03 11:53] LABS: PLATELET COUNT 282 10x3/uL (130-400)
[2018-09-03 11:54] LABS: INR 2.94 (0.85-1.17); PROTIME 29.9 SECONDS (11.6-15.0)
[2018-09-03 11:55] LABS: APTT 59.4 SECONDS (22.8-39.4)
[~2018-09-04] VITALS: Ht 193 cm; Wt 168.3 kg
[~2018-09-04 06:00] MED LIST changes: +CARAFATE1 G PO; +HYDROCODON-ACE1 EA10 PO
[2018-09-04 06:30] VITALS: BP 114/53; Ht 193 cm; Wt 168.3 kg
--- NOTE | 2018-09-04 07:00 | NUR ---
SPOKE WITH DR LEE REGARDING ABNORMAL LABS. NO ORDERS. RELATED WILL PROCEED WITH CAUTION.
[2018-09-04] MEDS ORDERED: HYDROCODON-ACE1 EAC7 PO (08:34)
--- NOTE | 2018-09-04 09:49 | NUR ---
0911 RETURNED TO 2505 HOB ELEVATED 45 DEGREES. CALL LIGHT AT BEDSIDE ADA DIET SERVED
== END 2018-09-04 10:40 | disposition home or self-care (01) ==
LOC: D.OPS 06:00 → D.PAN 09:15 → D.OPS 09:15 → D.PAN 09:30 → D.OPS 10:40
PROVIDERS: Anesthesiology; ATTEND Surgery
DX: C80.1 Malignant (primary) neoplasm, unspecified (principal)

== ENCOUNTER 2018-09-06 17:53 | Inpatient (IN) | payer MEDICARE ==
[2018-09-06 18:57] LABS: BASOPHILS 0.2 % (0-2); EOSINOPHILS 1.1 % (0-7); HEMATOCRIT 31.2 % (42.0-54.0); HEMOGLOBIN 9.3 g/dL (13.5-17.5); IMMATURE GRANULOCYTES 0.2 % (0-5); LYMPHOCYTES 9.4 % (15-50); MCH 23.1 pg (26.0-34.0); MCHC 29.8 g/dL (31.0-37.0); MCV 77.6 fL (80.0-100.0); MEAN PLATELET VOLUME 8.8 fL (7.4-10.4); MONOCYTES 9.6 % (2-11); NEUTROPHILS 79.5 % (40-80); RBC 4.02 10x6/uL (4.20-6.10); RDW 17.8 % (11.5-14.5)
[2018-09-06 19:02] LABS: PLATELET COUNT 393 10x3/uL (130-400)
[2018-09-06 19:14] LABS: ALBUMIN 2.3 g/dL (3.4-5.0); ALKALINE PHOSPHATASE 161 U/L (46-116); ALT (SGPT) 16 U/L (10-68); BILIRUBIN - TOTAL 0.29 mg/dL (0.2-1.3); CALC OSMOLALITY 278 mosm/kg (275-300); CALCIUM 8.5 mg/dL (8.5-10.1); CARBON DIOXIDE 30.7 mmol/L (21.0-32.0); CHLORIDE - SERUM 101 mmol/L (98-107); CREATININE - SERUM 1.1 mg/dL (0.6-1.3); GLUCOSE 102 mg/dL (74-106); POTASSIUM - SERUM 3.4 mmol/L (3.5-5.1); PROTEIN - SERUM 7.4 g/dL (6.4-8.2); SODIUM 140 mmol/L (136-145); UREA NITROGEN 13 mg/dL (7-18); eGFR NON AFRICAN AMERICAN 70 mL/min (90-120)
[2018-09-06 19:28] LABS: APTT 73.5 SECONDS (22.8-39.4)
[2018-09-06 19:35] LABS: CREATINE KINASE 44 UL (21-232); TROPONIN-I < 0.017 ng/mL (0.000-0.060)
[2018-09-06 19:45] LABS: APPEARANCE CLEAR (CLEAR); BILIRUBIN NEGATIVE (NEGATIVE); COLOR YELLOW (YELLOW); GLUCOSE NEGATIVE (NEGATIVE); KETONE NEGATIVE (NEGATIVE); NITRITE NEGATIVE (NEGATIVE); PROTEIN TRACE mg/dL (NEGATIVE); SPECIFIC GRAVITY 1.015 (1.005-1.020); UROBILINOGEN NORMAL (NORMAL)
[2018-09-06 19:46] LABS: BACTERIA MANY /hpf (NONE SEEN); RED CELLS - URINE 0-5 /hpf (0-5); WHITE CELLS - URINE 0-5 /hpf (0-5)
--- NOTE | 2018-09-06 19:48 | NUR ---
CRITICAL RESULT CALLED ON PT. LACTIC ACID 2.4. EDP NOTIFIED.
[2018-09-06 19:57] LABS: PROTIME 45.7 SECONDS (11.6-15.0)
[2018-09-06 20:12] LABS: INR 5.01 (0.85-1.17)
--- NOTE | 2018-09-06 20:17 | NUR ---
CRITICAL RESULT CALLED ON PT. INR 5.01. EDP NOTIFIED.
[2018-09-06 22:44] LABS: % SATURATION 8 % (15-55); IRON 23 ug/dl (35-150); TOTAL IRON BIND CAPACITY 261 ug/dl (260-445); UNSAT IRON BIND CAPACITY 238 ug/dl (150-375)
[2018-09-07 00:28] VITALS: BP 117/59; BMI 44.5
--- NOTE | 2018-09-07 00:28 | NUR ---
PT RECEIVED TO FLOOR AT 2355. ADMISSION HISTORY COMPLETED. PROVIDED PREM CARE PT HAD BOWEL MOVEMENT EARLIER IN THE AFTERNOON. RED BOTTOM. BOUDREAUXS APPLIED. 500 ML BOLUS OF NS INFUSING. 1 G/250 ML OF VANCO. BOTH INUSING TO RIGHT HAND. REQUESTS PAIN PILL. RATES PAIN 10/10. ADMINISTERED PER ORDER. BEFORE LEAVING ROOM PT REQUESTED ANOTHER PAIN PILL. TOLD PT IT WAS JUST ADMINISTERED AND HE REPLIED "OKAY". CALL LIGHT IN HAND. DENIES FURTHER NEEDS AT THIS TIME.
[2018-09-07 01:10] VITALS: BP 117/59
[2018-09-07 05:28] VITALS: BP 118/54
--- NOTE | 2018-09-07 07:30 | NUR ---
RESUMING PT CARE, PT LAYING IN BED WITH EYES CLOSED, RESPIRATIONS EVEN AND UNLABORED. CALL LIGHT IN REACH, WILL CONTINUE TO MONITOR AND FOLLOW PLAN OF CARE.
[2018-09-07 07:49] VITALS: BP 144/63
--- NOTE | 2018-09-07 07:56 | NUR ---
RESUMING PT CARE, PT SITTING UP IN BED EATING BREAKFAST, CALL LIGHT IN REACH, WILL CONTINUE TO MONITOR.
[2018-09-07 10:15] VITALS: BMI 44.4
--- NOTE | 2018-09-07 14:19 | MORECARE ---
CASE MANAGEMENT DISCHARGE SUMMARY PATIENT: PARESH SANCHEZ UNIT: [id number] ADM DATE: 09/06/18 AGE: 68 : 46 SEX: M ROOM/BED: D.1205 AUTHOR: LIZETTE VIEYRA PHYSICIAN: REFERRING PHYSICIAN: TRINIDAD GODFREY MD DATE OF SERVICE: 09/07/18 Discharge Plan Patient Name: PARESH SANCHEZ [facility] : 1950 Planned Disposition: Home Anticipated Discharge Date: Discharge Date: Expected LOS: Initial Reviewer: [email or web address] Initial Review Date: 09/06/2018 Generated: 09/07/18 3:19 pm DCPIA - Discharge Planning Initial Assessment Updated by [email or web address]: Karina Oliva on 09/07/18 2:18 pm * Is the patient Alert and Oriented? Yes * How many steps to enter\exit or inside your home? * PCP DR. Montes * Pharmacy [facility] * Preadmission Environment Home Alone * ADLs Independent * Equipment Walker Wheelchair * Other Equipment o2 machine that he has never had to use * List name and contact numbers for known caregivers / representatives who currently or will assist patient after discharge: Juju Chahal [phone] Paresh Sanchez [phone] Duglas Lito [phone] transport home * Verbal permission to speak to the caregivers and representatives has been obtained from the patient. N/A * Community resources currently utilized None * Additional services required to return to the preadmission environment? No * Can the patient safely return to the preadmission environment? Yes * Has this patient been hospitalized within the prior 30 days at any hospital? Yes Patient Name: PARESH SANCHEZ Page [phone] at 1419 All edits/amendments must be made on the electronic document DICTATION DATE: 09/07/181418 SCRAP SAWYER: ADELA 09/07/181418 RPT#: [id number] DC DATE: STATUS: ADM IN [facility] [address] [place] [address] END OF REPORT
--- NOTE | 2018-09-07 14:27 | MORECARE ---
CASE MANAGEMENT DISCHARGE SUMMARY PATIENT: PARESH SANCHEZ UNIT: [id number] ADM DATE: 09/06/18 AGE: 68 : 48 SEX: M ROOM/BED: D.1205 AUTHOR: JARRELL,DOC PHYSICIAN: REFERRING PHYSICIAN: TRINIDAD GODFREY MD DATE OF SERVICE: 09/07/18 Discharge Plan Patient Name: PARESH SANCHEZ Facility: [facility]:[place] : 1950 Planned Disposition: Home Anticipated Discharge Date: Discharge Date: Expected LOS: Initial Reviewer: [email or web address] Initial Review Date: 09/07/2018 Generated: 09/07/18 3:27 pm Comments DCP- Discharge Planning Updated by [email or web address]: Karina Oliva on 09/07/18 1:[address] Patient Name: PARESH SANCHEZ Admission Status: ER Accout number: [id number] Admission Date: 09-06-2018 : 1950 Admission Diagnosis: Attending: TRINIDAD GODFREY Current LOS: 1 Anticipated DC Date: Planned Disposition: Home Primary Insurance: WELLC[employer] MEDICARE ADV Discharge Planning Comments: CM met with patient about discharge planning. CM explained CM role and verbal consent was given to do dc assessment. Patient states his discharge plan is to return to home . States home environment is safe. Denies any discharge planning needs at this time. [facility] Duglas Lito [phone] will drive him home upon discharge. CM will continue to follow and assist as needed with discharge planning needs. Garnett Mechanic: Karina Oliva DCPIA - Discharge Planning Initial Assessment Updated by [email or web address]: Karina Oliva on 09/07/18 2:18 pm * Is the patient Alert and Oriented? Yes * How many steps to enter\exit or inside your home? * PCP DR. Montes * Pharmacy [facility] * Preadmission Environment Home Alone * ADLs Independent * Equipment Walker Wheelchair * Other Equipment o2 machine that he has never had to use * List name and contact numbers for known caregivers / representatives who currently or will assist patient after discharge: Juju Chahal [phone] Paresh Sanchez [phone] Duglas Morse [phone] transport home * Verbal permission to speak to the caregivers and representatives has been obtained from the patient. N/A * Community resources currently utilized None * Additional services required to return to the preadmission environment? No * Can the patient safely return to the preadmission environment? Yes * Has this patient been hospitalized within the prior 30 days at any hospital? Yes Last DP export: 09/07/18 1:19 p Patient Name: PARESH SANCHEZ Page 06069 at 1427 All edits/amendments must be made on the electronic document DICTATION DATE: 09/07/181425 BODY AND FRAME TECHNICIAN: ADELA 09/07/181425 RPT#: [id number] DC DATE: STATUS: ADM IN [facility] [address] [place] [address] END OF REPORT
[2018-09-07 14:43] LABS: ERYTHROCYTE SEDIMENTATION RATE 155 mm/hr (0-20)
--- NOTE | 2018-09-07 14:48 | NUR ---
RESTING QUIETLY IN BED. CALL LIGHT WITHIN REACH. DENIES ANY NEEDS AT THIS TIME.
[2018-09-07 15:38] VITALS: BP 138/68
--- NOTE | 2018-09-07 19:20 | NUR ---
PT RESTING WITH EYES CLOSED AND UNLABORED RESPIRATIONS WHEN ENTERING THE ROOM. PT OXYGEN AT FOREHEAD. REPOSITIONED AND O2 94% ON 2L NC. VITAL SIGNS STABLE. REQUESTS PAIN PILL WHEN AVAILABLE STATES "KNEE PAIN." RIGHT HAND SALINE LOCKED.CALL LIGHT IN REACH.
[2018-09-07 20:01] VITALS: BP 124/56
[2018-09-08] VITALS: BP 118/63
[2018-09-08 00:50] VITALS: BP 118/63
--- NOTE | 2018-09-08 01:17 | NUR ---
I have reviewed this patient and I concur with the Shift Assessment completed by the Licensed Practical Nurse today this shift.
--- NOTE | 2018-09-08 04:49 | NUR ---
PT RESTED WELL THROUGH OUT NIGHT. USES URINAL WHEN NEEDED DENIES PAIN AT THIS TIME. IV TO THE RIGHT HAND FLUSHED AND RETURNED TO SALINE LOCK.
[2018-09-08 05:00] VITALS: BP 122/57
[2018-09-08 06:20] LABS: BASOPHILS 0.2 % (0-2); EOSINOPHILS 1.6 % (0-7); HEMOGLOBIN 8.4 g/dL (13.5-17.5); IMMATURE GRANULOCYTES 0.4 % (0-5); LYMPHOCYTES 9.5 % (15-50); MCH 22.7 pg (26.0-34.0); MCV 78.4 fL (80.0-100.0); MEAN PLATELET VOLUME 8.5 fL (7.4-10.4); NEUTROPHILS 78.3 % (40-80); PLATELET COUNT 344 10x3/uL (130-400); RDW 17.6 % (11.5-14.5); WBC 8.2 10x3/uL (4.8-10.8)
[2018-09-08 06:36] LABS: ALKALINE PHOSPHATASE 145 U/L (46-116); ALT (SGPT) 16 U/L (10-68); BILIRUBIN - TOTAL 0.38 mg/dL (0.2-1.3); CALC OSMOLALITY 276 mosm/kg (275-300); CALCIUM 8.4 mg/dL (8.5-10.1); CARBON DIOXIDE 35.1 mmol/L (21.0-32.0); CHLORIDE - SERUM 101 mmol/L (98-107); GLUCOSE 93 mg/dL (74-106); POTASSIUM - SERUM 3.8 mmol/L (3.5-5.1); PROTEIN - SERUM 6.4 g/dL (6.4-8.2); SODIUM 139 mmol/L (136-145); UREA NITROGEN 10 mg/dL (7-18)
[2018-09-08 06:38] LABS: CREATININE - SERUM 0.8 mg/dL (0.6-1.3); eGFR NON AFRICAN AMERICAN > 90 mL/min (90-120)
[2018-09-08 08:06] LABS: INR 3.63 (0.85-1.17); PROTIME 35.4 SECONDS (11.6-15.0)
[2018-09-08 08:09] VITALS: BP 103/53
--- NOTE | 2018-09-08 12:36 | NUR ---
PATIENT ALERT AND ORIENTED THIS MORNING. ATE 100% OF BREAKFAST. C/O OF PAIN TO KNEE AND WAS MEDICATED WITH PRN PAIN MEDICATION AT 10:45 WITH GOOD RESULTS. IV TO RIGHT WRIST PATENT. SITTING UP IN BED EATING LUNCH WITH AT BEDSIDE AT THIS TIME. WILL CONTINUE TO MONITOR. CALL LIGHT WITHIN REACH.
[2018-09-08 17:38] VITALS: BP 117/50
[2018-09-08 20:51] VITALS: BP 113/48
--- NOTE | 2018-09-08 22:15 | NUR ---
ROUNDING ON THE PATIENT, HE APPERARS TO BE ASLEEP, LIGHTS OFF, CALL LIGHT WITHIN REACH
[2018-09-09 01:00] VITALS: BP 129/52
--- NOTE | 2018-09-09 04:18 | NUR ---
PT REST IN BED, CALL LIGHT IN REACH.
[2018-09-09 05:46] VITALS: BP 110/52
[2018-09-09 06:00] LABS: CALC OSMOLALITY 289 mosm/kg (275-300); CALCIUM 8.8 mg/dL (8.5-10.1); CARBON DIOXIDE 38.3 mmol/L (21.0-32.0); CHLORIDE - SERUM 105 mmol/L (98-107); CREATININE - SERUM 0.8 mg/dL (0.6-1.3); GLUCOSE 108 mg/dL (74-106); MAGNESIUM - SERUM 1.7 mg/dL (1.8-2.4); SODIUM 145 mmol/L (136-145); UREA NITROGEN 12 mg/dL (7-18); eGFR NON AFRICAN AMERICAN > 90 mL/min (90-120)
[2018-09-09 06:03] LABS: POTASSIUM - SERUM 4.6 mmol/L (3.5-5.1)
[2018-09-09 06:10] LABS: BASOPHILS 0.2 % (0-2); EOSINOPHILS 1.1 % (0-7); HEMATOCRIT 30.8 % (42.0-54.0); HEMOGLOBIN 8.6 g/dL (13.5-17.5); IMMATURE GRANULOCYTES 0.5 % (0-5); LYMPHOCYTES 10.8 % (15-50); MCH 22.8 pg (26.0-34.0); MCHC 27.9 g/dL (31.0-37.0); MEAN PLATELET VOLUME 8.6 fL (7.4-10.4); MONOCYTES 11.1 % (2-11); NEUTROPHILS 76.3 % (40-80); PLATELET COUNT 366 10x3/uL (130-400); RBC 3.78 10x6/uL (4.20-6.10); RDW 17.8 % (11.5-14.5); WBC 8.1 10x3/uL (4.8-10.8)
[2018-09-09 06:11] LABS: MCV 81.5 fL (80.0-100.0)
--- NOTE | 2018-09-09 07:44 | NUR ---
REPORT RECEIVED. WILL CONTINUE WITH POC. PT CURRENTLY LYING SEMI FOWLERS. CALL LIGHT W/I REACH. PT IS AAO AND BEDFAST. RR EVEN AND UNLABORED ON RA. R.HAND PIV IS SALINE LOCKED. PT DENIES ANY NEEDS AT THIS TIME. WILL CTM.
[2018-09-09 08:00] VITALS: BP 120/74
--- NOTE | 2018-09-09 11:47 | NUR ---
PT IS PLACED IN CONTACT ISO FOR VRE IN URINE.
[2018-09-09 12:00] VITALS: BP 117/58
[2018-09-09 16:00] VITALS: BP 126/52
--- NOTE | 2018-09-09 16:26 | NUR ---
ALERT AND ORIENTED X4. RESTING IN BED. FRIENDS AT BEDSIDE. ISOLATION PRECAUTIONS INITIATED BY JUAN J RICH PER CATHERINE INFECTION CONTROL. AGREE WITH HOSPICE VOLUNTEER ASSESSMENT. JUAN J RICH RESUMES PLAN OF CARE AND SAFETY PRECAUTIONS.
[2018-09-09 19:00] VITALS: BP 134/67
--- NOTE | 2018-09-09 19:30 | NUR ---
PATIENT IS RESTING IN HIS BED. HE DENIES ANY NEEDS. HIS BED IS DOWN LOW WITH SIDE RAILS UP X2. CALL LIGHT IN REACH. URINAL IN REACH.
[2018-09-09 20:45] LABS: INR 2.28 (0.85-1.17); PROTIME 24.4 SECONDS (11.6-15.0)
[2018-09-10 01:20] VITALS: BP 118/48
[2018-09-10 05:15] VITALS: BP 137/58
[2018-09-10 06:59] LABS: BASOPHILS 0.2 % (0-2); EOSINOPHILS 1.1 % (0-7); HEMATOCRIT 29.4 % (42.0-54.0); HEMOGLOBIN 8.3 g/dL (13.5-17.5); IMMATURE GRANULOCYTES 0.6 % (0-5); LYMPHOCYTES 11.6 % (15-50); MCH 22.4 pg (26.0-34.0); MCHC 28.2 g/dL (31.0-37.0); MEAN PLATELET VOLUME 8.4 fL (7.4-10.4); MONOCYTES 9.9 % (2-11); NEUTROPHILS 76.6 % (40-80); PLATELET COUNT 358 10x3/uL (130-400); RBC 3.71 10x6/uL (4.20-6.10); RDW 17.6 % (11.5-14.5); WBC 8.1 10x3/uL (4.8-10.8)
[2018-09-10 07:06] LABS: CALC OSMOLALITY 277 mosm/kg (275-300); CALCIUM 8.7 mg/dL (8.5-10.1); CHLORIDE - SERUM 101 mmol/L (98-107); CREATININE - SERUM 0.8 mg/dL (0.6-1.3); GLUCOSE 91 mg/dL (74-106); MAGNESIUM - SERUM 1.4 mg/dL (1.8-2.4); SODIUM 140 mmol/L (136-145); UREA NITROGEN 11 mg/dL (7-18); eGFR NON AFRICAN AMERICAN > 90 mL/min (90-120)
[2018-09-10 07:08] LABS: MCV 79.2 fL (80.0-100.0); POTASSIUM - SERUM 3.9 mmol/L (3.5-5.1)
[2018-09-10 07:21] LABS: INR 1.94 (0.85-1.17); PROTIME 21.5 SECONDS (11.6-15.0)
[2018-09-10 08:31] VITALS: BP 103/64
[2018-09-10 12:30] VITALS: BP 143/56
--- NOTE | 2018-09-10 14:27 | NUR ---
PT RESTING IN BED. NO SIGNS OF DISTRESS. IV TO RIGHT HAND PATENT NO REDNESS OR TENDERNESS. WEARS CPAP AT NIGHT. HAS INCISION TO LEFT SIDE OF CHEST FROM INFUSAPORT PLACEMENT. DENIES ANY FUTHER NEED AT THIS TIME. CALL LIGHT IN REACH. BED LOW POSITION. NO FAMILY AT BEDSIDE.
[2018-09-10 16:15] VITALS: BP 112/63
--- NOTE | 2018-09-10 16:26 | NUR ---
ALERT AND ORIENTED X4. RESTING IN BED. FRIENDS AT BEDSIDE. DENIES ANY NEEDS. JUAN J GERMAN RESUMES PLAN OF CARE AND SAFETY PRECAUTIONS.
[2018-09-10 20:00] VITALS: BP 113/53
--- NOTE | 2018-09-10 20:00 | NUR ---
PATIENT RECEIVED LAYING IN BED WITH 02 @ 2LNC. ASSESSMENT & VITAL SIGNS DONE. NO C/O PAIN OR DISTRESS. BED LOW. CALL LIGHT WITHIN REACH. WILL CONTINUE TO MONITOR.
[2018-09-11] VITALS: BP 119/46
[2018-09-11 04:15] VITALS: BP 116/54
[2018-09-11 07:48] LABS: BASOPHILS 0.3 % (0-2); EOSINOPHILS 0.6 % (0-7); HEMATOCRIT 28.6 % (42.0-54.0); HEMOGLOBIN 8.4 g/dL (13.5-17.5); IMMATURE GRANULOCYTES 0.5 % (0-5); LYMPHOCYTES 9.4 % (15-50); MCHC 29.4 g/dL (31.0-37.0); MCV 78.4 fL (80.0-100.0); MEAN PLATELET VOLUME 8.6 fL (7.4-10.4); MONOCYTES 10.2 % (2-11); PLATELET COUNT 355 10x3/uL (130-400); RBC 3.65 10x6/uL (4.20-6.10); RDW 17.9 % (11.5-14.5); WBC 7.8 10x3/uL (4.8-10.8)
[2018-09-11 07:59] LABS: INR 1.57 (0.85-1.17); PROTIME 18.1 SECONDS (11.6-15.0)
[2018-09-11 08:00] LABS: CALC OSMOLALITY 277 mosm/kg (275-300); CALCIUM 8.7 mg/dL (8.5-10.1); CARBON DIOXIDE 33.8 mmol/L (21.0-32.0); CHLORIDE - SERUM 99 mmol/L (98-107); CREATININE - SERUM 0.7 mg/dL (0.6-1.3); GLUCOSE 97 mg/dL (74-106); MAGNESIUM - SERUM 1.6 mg/dL (1.8-2.4); POTASSIUM - SERUM 3.7 mmol/L (3.5-5.1); SODIUM 140 mmol/L (136-145); UREA NITROGEN 11 mg/dL (7-18); eGFR NON AFRICAN AMERICAN > 90 mL/min (90-120)
--- NOTE | 2018-09-11 08:11 | NUR ---
THE PATIENT WAS WATCHING TELEVISION WHEN STAFF ENTERED HIS ROOM. BED IS IN TH JASMIN WPOSITION WITH SIDERAILS X2 AND CALL LIGHT WITHIN REACH. THE PATIENT DEMONSTRATES APPROPRIATE USE OF A CALL LIGHT. THE PATIENT APPEARS COMFORTABLE WITH NO QUESTIONS OR CONCERNS AT THIS TIME.
[2018-09-11 09:39] VITALS: BP 131/59
[2018-09-11 13:26] VITALS: BP 119/68
[2018-09-11 16:15] VITALS: BP 118/60
[2018-09-12] VITALS: BP 117/40
[2018-09-12 04:30] VITALS: BP 114/65
--- NOTE | 2018-09-12 05:15 | NUR ---
IV PLACEMENT IN PTS RT 22G, PATENT, FLUSHES WELL, BLOOD RETURN, SALINE LOC
[2018-09-12 07:12] LABS: BASOPHILS 0.3 % (0-2); EOSINOPHILS 0.3 % (0-7); HEMATOCRIT 29.8 % (42.0-54.0); HEMOGLOBIN 8.7 g/dL (13.5-17.5); IMMATURE GRANULOCYTES 0.8 % (0-5); LYMPHOCYTES 12.9 % (15-50); MCHC 29.2 g/dL (31.0-37.0); MCV 78.8 fL (80.0-100.0); MEAN PLATELET VOLUME 8.7 fL (7.4-10.4); MONOCYTES 12.2 % (2-11); NEUTROPHILS 73.5 % (40-80); PLATELET COUNT 354 10x3/uL (130-400); RBC 3.78 10x6/uL (4.20-6.10); RDW 18.2 % (11.5-14.5)
[2018-09-12 07:19] LABS: INR 1.37 (0.85-1.17); PROTIME 16.3 SECONDS (11.6-15.0)
[2018-09-12 07:21] LABS: CALCIUM 8.4 mg/dL (8.5-10.1); CARBON DIOXIDE 34.3 mmol/L (21.0-32.0); CHLORIDE - SERUM 99 mmol/L (98-107); GLUCOSE 91 mg/dL (74-106); MAGNESIUM - SERUM 1.7 mg/dL (1.8-2.4); SODIUM 140 mmol/L (136-145); eGFR NON AFRICAN AMERICAN 89 mL/min (90-120)
[2018-09-12 07:22] LABS: CALC OSMOLALITY 279 mosm/kg (275-300); CREATININE - SERUM 0.9 mg/dL (0.6-1.3); UREA NITROGEN 14 mg/dL (7-18)
--- NOTE | 2018-09-12 07:50 | NUR ---
ASSESSMENT COMPLETE. IV TO R HAND PATENT. O2 2L NC IN USE. CONTACT ISOLATION PRECAUTIONS IN PLACE. STERI STRIPS INTACT TO LEFT CHEST FROM INFUSAPORT PLACEMENT. DENIES ANY NEEDS AT THIS TIME.
[2018-09-12 09:39] VITALS: BP 123/70
--- NOTE | 2018-09-12 12:00 | NUR ---
NO CHANGES NOTED AT THIS TIME.
[2018-09-12 12:53] VITALS: BP 123/73
--- NOTE | 2018-09-12 14:00 | NUR ---
Nutrition Follow Up: Chart reviewed. Pt is eating 100% meal avg on an ADA diet. Meds and labs reviewed. Pt continues at low nutritional risk. RD following.
[2018-09-12 16:57] VITALS: BP 132/42
--- NOTE | 2018-09-12 19:41 | NUR ---
GREETED PATIENT AND INTRODUCED MYSELF. PATIENT IS LAYING IN BED IN SUPINE POSITION. HOB AT 30 DEGREES. PATIENT IS CURRENTLY WEARING PERSONAL CPAP MACHINE. PATIENT DENIES ANY PAIN AT THIS TIME. CALL LIGHT IN REACH.
--- NOTE | 2018-09-12 21:45 | NUR ---
RECHECKED PATIENTS BLOOD SUGAR AFTER ADMINISTRATION OF 10 UNITS OF HUMLIN R FOR SUGAR OF 265. PATIENTS BLOOD SUGAR CURRENTLY 146. TM. CALL LIGHT IN REACH.
--- NOTE | 2018-09-12 22:49 | NUR ---
PATIENT RESTING QUIETLY WITH EYES CLOSED LAYING IN SUPINE POSITION. HOB AT 30 DEGREES. PATIENT WEARING PERSONAL CPAP MACHINE. RESPIRATIONS EVEN. NO S/S OF DISTRESS. CALL LIGHT IN REACH.
--- NOTE | 2018-09-13 01:59 | NUR ---
PATIENT RESTING QUIETLY IN BED IN SUPINE POSITION. HOB AT 30 DEGREES. CPAP IN USE. RESPIRATIONS EVEN. NO S/S OF DISTRESS. CALL LIGHT IN REACH.
[2018-09-13 04:06] VITALS: BP 124/46
[2018-09-13 07:32] LABS: BASOPHILS 0.1 % (0-2); EOSINOPHILS 1.1 % (0-7); HEMATOCRIT 31.1 % (42.0-54.0); HEMOGLOBIN 8.9 g/dL (13.5-17.5); IMMATURE GRANULOCYTES 0.4 % (0-5); LYMPHOCYTES 10.8 % (15-50); MCH 22.9 pg (26.0-34.0); MCHC 28.6 g/dL (31.0-37.0); MCV 79.9 fL (80.0-100.0); MEAN PLATELET VOLUME 8.5 fL (7.4-10.4); MONOCYTES 11.7 % (2-11); NEUTROPHILS 75.9 % (40-80); PLATELET COUNT 315 10x3/uL (130-400); RBC 3.89 10x6/uL (4.20-6.10); RDW 18.7 % (11.5-14.5); WBC 7.4 10x3/uL (4.8-10.8)
[2018-09-13 07:43] LABS: CALC OSMOLALITY 277 mosm/kg (275-300); CALCIUM 8.6 mg/dL (8.5-10.1); CARBON DIOXIDE 35.7 mmol/L (21.0-32.0); CHLORIDE - SERUM 100 mmol/L (98-107); CREATININE - SERUM 0.9 mg/dL (0.6-1.3); GLUCOSE 85 mg/dL (74-106); INR 1.38 (0.85-1.17); MAGNESIUM - SERUM 1.9 mg/dL (1.8-2.4); POTASSIUM - SERUM 3.8 mmol/L (3.5-5.1); PROTIME 16.4 SECONDS (11.6-15.0); SODIUM 140 mmol/L (136-145); UREA NITROGEN 13 mg/dL (7-18); eGFR NON AFRICAN AMERICAN 89 mL/min (90-120)
[2018-09-13 08:00] VITALS: BP 109/36
--- NOTE | 2018-09-13 10:31 | NUR ---
THE PATIENT WAS LYING IN BED WHEN STAFF ENTERED HIS ROOM. PATIENT REMAINS ON CONTACT PRECAUTIONS. BED IS IN THE LOW POSITION WITH SIDERAILS X2 AND CALL LIGHT WITHIN REACH. THE PATIENT DEMONSTRATES UNDERSTANDING TO CALL FOR NURSE WITH QUESTIONS OR CONCERNS. THE PATIENT APPEARS COMFORTABLE WITH NO QUESTIONS OR CONCERNS AT THIS TIME.
[2018-09-13 12:00] VITALS: BP 113/69
--- NOTE | 2018-09-13 13:37 | NUR ---
PT SCHEDULED FOR AN MRI BUT HAS PACEMAKER, PT'S NURSE NOTIFIED
[2018-09-13 16:30] VITALS: BP 129/57
[2018-09-13 20:00] VITALS: BP 126/52
[2018-09-14] VITALS: BP 123/60
[2018-09-14 04:00] VITALS: BP 111/53
[2018-09-14 06:15] LABS: BASOPHILS 0.3 % (0-2); HEMATOCRIT 29.8 % (42.0-54.0); HEMOGLOBIN 8.4 g/dL (13.5-17.5); IMMATURE GRANULOCYTES 0.7 % (0-5); LYMPHOCYTES 13.7 % (15-50); MCH 22.9 pg (26.0-34.0); MCHC 28.2 g/dL (31.0-37.0); MCV 81.2 fL (80.0-100.0); MEAN PLATELET VOLUME 8.5 fL (7.4-10.4); MONOCYTES 12.1 % (2-11); NEUTROPHILS 72.2 % (40-80); PLATELET COUNT 301 10x3/uL (130-400); RBC 3.67 10x6/uL (4.20-6.10); RDW 18.8 % (11.5-14.5); WBC 6.8 10x3/uL (4.8-10.8)
[2018-09-14 06:35] LABS: ALBUMIN 2.1 g/dL (3.4-5.0); ALKALINE PHOSPHATASE 133 U/L (46-116); ALT (SGPT) 15 U/L (10-68); BILIRUBIN - TOTAL 0.37 mg/dL (0.2-1.3); CALC OSMOLALITY 276 mosm/kg (275-300); CALCIUM 8.3 mg/dL (8.5-10.1); CARBON DIOXIDE 36.5 mmol/L (21.0-32.0); CHLORIDE - SERUM 102 mmol/L (98-107); CREATININE - SERUM 0.8 mg/dL (0.6-1.3); GLUCOSE 79 mg/dL (74-106); POTASSIUM - SERUM 3.7 mmol/L (3.5-5.1); PROTEIN - SERUM 6.7 g/dL (6.4-8.2); SODIUM 140 mmol/L (136-145); UREA NITROGEN 11 mg/dL (7-18); eGFR NON AFRICAN AMERICAN > 90 mL/min (90-120)
[2018-09-14 06:49] LABS: INR 1.34 (0.85-1.17)
--- NOTE | 2018-09-14 07:35 | NUR ---
ASSESSMENT COMPLETE. IV TO R HAND PATENT. HOME CPAP IN USE. CONTACT ISOLATION PRECAUTIONS IN PLACE. UPPER CUTTER MACHINE SHOWING AFIB 119 PER TECH. DENIES ANY NEEDS AT THIS TIME.
[2018-09-14 08:39] VITALS: BP 101/52
--- NOTE | 2018-09-14 10:55 | NUR ---
NO CHANGES NOTED AT THIS TIME.
--- NOTE | 2018-09-14 11:16 | NUR ---
OFF FLOOR TO CT VIA BED.
--- NOTE | 2018-09-14 11:39 | NUR ---
AGAIN TRIED TO ORDER A MRI BRAIN. PT HAS A PACEMAKER. NOTIFIED BETHANY HIS NURSE WHO SPOKE WITH VERENA AND WILL AGAIN INFORM THE DOCTOR WHEN THEY COME IN.
[2018-09-14 12:29] VITALS: BP 109/61
[2018-09-14 16:35] VITALS: BP 123/48
--- NOTE | 2018-09-14 18:58 | NUR ---
PT IN BED RESTING QUIETLY ON CPAP. NO ACUTE DISTRESS NOTED AT THIS TIME.
[2018-09-14 20:08] VITALS: BP 110/52
--- NOTE | 2018-09-14 23:17 | NUR ---
I have reviewed this patient and I concur with the Shift Assessment completed by the Licensed Practical Nurse today this shift.
[2018-09-15 00:41] VITALS: BP 120/60
[2018-09-15 05:42] VITALS: BP 113/55
[2018-09-15 07:48] LABS: BASOPHILS 0.4 % (0-2); EOSINOPHILS 0.7 % (0-7); HEMATOCRIT 33.6 % (42.0-54.0); HEMOGLOBIN 9.5 g/dL (13.5-17.5); IMMATURE GRANULOCYTES 0.7 % (0-5); LYMPHOCYTES 10.8 % (15-50); MCH 23.4 pg (26.0-34.0); MCHC 28.3 g/dL (31.0-37.0); MCV 82.8 fL (80.0-100.0); MEAN PLATELET VOLUME 8.4 fL (7.4-10.4); MONOCYTES 9.1 % (2-11); NEUTROPHILS 78.3 % (40-80); PLATELET COUNT 348 10x3/uL (130-400); RBC 4.06 10x6/uL (4.20-6.10); RDW 19.5 % (11.5-14.5); WBC 8.3 10x3/uL (4.8-10.8)
[2018-09-15 08:23] LABS: ALBUMIN 2.3 g/dL (3.4-5.0); ALKALINE PHOSPHATASE 143 U/L (46-116); ALT (SGPT) 13 U/L (10-68); BILIRUBIN - TOTAL 0.39 mg/dL (0.2-1.3); CALC OSMOLALITY 277 mosm/kg (275-300); CALCIUM 8.7 mg/dL (8.5-10.1); CARBON DIOXIDE 36.5 mmol/L (21.0-32.0); CHLORIDE - SERUM 101 mmol/L (98-107); CREATININE - SERUM 0.8 mg/dL (0.6-1.3); GLUCOSE 95 mg/dL (74-106); POTASSIUM - SERUM 3.9 mmol/L (3.5-5.1); PROTEIN - SERUM 7.2 g/dL (6.4-8.2); SODIUM 140 mmol/L (136-145); UREA NITROGEN 10 mg/dL (7-18); eGFR NON AFRICAN AMERICAN > 90 mL/min (90-120)
--- NOTE | 2018-09-15 09:42 | NUR ---
PATIENT SLEEPING THIS MORNING AND HAD TO BE AWAKENED FOR V/S AND BREAKFAST. ATE 100% OF BREAKFAST. C/O PAIN TO KNEE AND WAS MEDICATED WITH PRN NORCO WITH GOOD RESULTS. RESTING QUIETLY AT THIS TIME. WILL CONTINUE TO MONITOR. CALL LIGHT WITHIN REACH.
[2018-09-15 10:06] LABS: INR 1.41 (0.85-1.17); PROTIME 16.7 SECONDS (11.6-15.0)
[2018-09-15 10:36] VITALS: BP 135/72
[2018-09-15 16:26] VITALS: BP 124/63
[2018-09-15 21:31] VITALS: BP 125/64
--- NOTE | 2018-09-15 21:45 | NUR ---
EMPTY 400ML DARK YELLOW URINE FOR URINAL. CALL LIGHT IN REACH.
[2018-09-16] VITALS (14 sets, daily range): BP systolic 95–136; BP diastolic 52–76; BMI 47.5
--- NOTE | 2018-09-16 00:37 | NUR ---
I HAVE REVIEWED THIS PATIENT AND I CONCUR WITH THE SHIFT ASSESSMENT COMPLETED BY THE LICENSED PRACTICAL NURSE THIS SHIFT.
--- NOTE | 2018-09-16 01:07 | NUR ---
REST QUIELTY IN BED, CALL LIGHT IN REACH.
[2018-09-16 06:56] LABS: BASOPHILS 0.2 % (0-2); EOSINOPHILS 0.5 % (0-7); HEMATOCRIT 33.4 % (42.0-54.0); HEMOGLOBIN 9.5 g/dL (13.5-17.5); IMMATURE GRANULOCYTES 0.7 % (0-5); LYMPHOCYTES 9.8 % (15-50); MCH 23.6 pg (26.0-34.0); MCHC 28.4 g/dL (31.0-37.0); MCV 83.1 fL (80.0-100.0); MEAN PLATELET VOLUME 8.8 fL (7.4-10.4); MONOCYTES 9.4 % (2-11); NEUTROPHILS 79.4 % (40-80); PLATELET COUNT 371 10x3/uL (130-400); RBC 4.02 10x6/uL (4.20-6.10); RDW 19.8 % (11.5-14.5); WBC 8.7 10x3/uL (4.8-10.8)
[2018-09-16 07:03] LABS: INR 1.46 (0.85-1.17); PROTIME 17.1 SECONDS (11.6-15.0)
[2018-09-16 07:04] LABS: ALBUMIN 2.4 g/dL (3.4-5.0); ALKALINE PHOSPHATASE 141 U/L (46-116); ALT (SGPT) 16 U/L (10-68); BILIRUBIN - TOTAL 0.35 mg/dL (0.2-1.3); CALC OSMOLALITY 280 mosm/kg (275-300); CALCIUM 8.7 mg/dL (8.5-10.1); CARBON DIOXIDE 38.4 mmol/L (21.0-32.0); CHLORIDE - SERUM 100 mmol/L (98-107); CREATININE - SERUM 0.8 mg/dL (0.6-1.3); GLUCOSE 104 mg/dL (74-106); POTASSIUM - SERUM 4.1 mmol/L (3.5-5.1); PROTEIN - SERUM 7.3 g/dL (6.4-8.2); SODIUM 141 mmol/L (136-145); eGFR NON AFRICAN AMERICAN > 90 mL/min (90-120)
[2018-09-16 07:05] LABS: UREA NITROGEN 13 mg/dL (7-18)
--- NOTE | 2018-09-16 07:37 | NUR ---
RECEIVED V.O. FROM SNEHA ALBARADO TO ACCESS PT'S LEFT CHEST INFUSAPORT FOR IV ACCESS.
--- NOTE | 2018-09-16 11:11 | MORECARE ---
CASE MANAGEMENT DISCHARGE SUMMARY PATIENT: PARESH SANCHEZ UNIT: [id number] ADM DATE: 09/06/18 AGE: 68 : 48 SEX: M ROOM/BED: D.1205 AUTHOR: JARRELL,DOC PHYSICIAN: REFERRING PHYSICIAN: TRINIDAD GODFREY MD DATE OF SERVICE: 09/16/18 Discharge Plan Patient Name: PARESH SANCHEZ Facility: [facility]:[place] : 1950 Planned Disposition: Home Anticipated Discharge Date: Discharge Date: Expected LOS: Initial Reviewer: [email or web address] Initial Review Date: 09/07/2018 Generated: 09/16/18 12:11 pm DCP- Discharge Planning Updated by [id number]: Karina Oliva on 09/07/18 1:[address] Patient Name: PARESH SANCHEZ Admission Status: ER Accout number: [id number] Admission Date: 09-06-2018 : 1950 Admission Diagnosis: Attending: TRINIDAD GODFREY Current LOS: 1 Anticipated DC Date: Planned Disposition: Home Primary Insurance: WELLCARE MEDICARE ADV Discharge Planning Comments: CM met with patient about discharge planning. CM explained CM role and verbal consent was given to do dc assessment. Patient states his discharge plan is to return to home . States home environment is safe. Denies any discharge planning needs at this time. [facility] Duglas Morse [phone] will drive him home upon discharge. CM will continue to follow and assist as needed with discharge planning needs. Rivet Driver: Karina Oliva DCPIA - Discharge Planning Initial Assessment Updated by [email or web address]: Karina Oliva on 09/07/18 2:18 pm * Is the patient Alert and Oriented? Yes * How many steps to enter\exit or inside your home? * PCP DR. Montes * [facility] * Preadmission Environment Home Alone * ADLs Independent * Equipment Walker Wheelchair * Other Equipment o2 machine that he has never had to use * List name and contact numbers for known caregivers / representatives who currently or will assist patient after discharge: Juju Chahal [phone] Paresh Sanchez [phone] Duglas Morse [phone] transport home * Verbal permission to speak to the caregivers and representatives has been obtained from the patient. N/A * Community resources currently utilized None * Additional services required to return to the preadmission environment? No * Can the patient safely return to the preadmission environment? Yes * Has this patient been hospitalized within the prior 30 days at any hospital? Yes External Providers External Provider: [facility] Next Contact Date: Service Request Date: 09/16/2018 Service Type: Longterm New Referral Resolution: Reviewer: Karina Oliva Comments: Last DP export: 09/07/18 1:27 p Patient Name: PARESH SANCHEZ Page 58889 at 1111 All edits/amendments must be made on the electronic document DICTATION DATE: 09/16/18 111 CAFETERIA ASSISTANT: ADELA 09/16/18 1110 RPT#: [id number] DC DATE: STATUS: ADM IN [facility] [address] [place] [address] END OF REPORT
--- NOTE | 2018-09-16 11:20 | NUR ---
PT LETHARGIC AND HAS TREMORS IN HANDS. PT WILL AROUSE TO TOUCH AND THEN RESPOND. PT WEARING CPAP. PHYSICAL THERAPIST STATED TO ME THIS HAS NOT BEEN PT'S NORMAL. CALLED TERESO CAMPBELL AND SHE STATES SHE WILL ORDER STAT ABG'S.
--- NOTE | 2018-09-16 11:29 | MORECARE ---
CASE MANAGEMENT DISCHARGE SUMMARY PATIENT: PARESH SANCHEZ UNIT: [id number] ADM DATE: 09/06/18 AGE: 68 : 48 SEX: M ROOM/BED: D.1205 AUTHOR: JARRELL,DOC PHYSICIAN: REFERRING PHYSICIAN: TRINIDAD GODFREY MD DATE OF SERVICE: 09/16/18 Discharge Plan Patient Name: PARESH SANCHEZ Facility: [facility]:[place] : 1950 Planned Disposition: Home Anticipated Discharge Date: Discharge Date: Expected LOS: Initial Reviewer: [email or web address] Initial Review Date: 09/07/2018 Generated: 09/16/18 12:29 pm Comments DCP- Discharge Planning Updated by [email or web address]: Karina Oliva on 09/16/18 10:[address] Patient Name: PARESH SANCHEZ Admission Status: ER Accout number: [id number] Admission Date: 09-06-2018 : 1950 Admission Diagnosis:PAIN IN RIGHT KNEE Attending: TRINIDAD GODFREY Current LOS: 10 Anticipated DC Date: Planned Disposition: Home Primary Insurance: WELLCARE MEDICARE ADV Discharge Planning Comments: SPOKE TO PT ABOUT HIS DECLINE IN HEALTH AND OPTIONS FOR CARE AFTER DC. HE STATES HE HAS BEEN THINKING ABOUT THAT AND WANTED TO TRY [facility]. IMM AND POC SIGNED AND PLACED IN MEDICAL RECORD. ANTONIETA AT HAS BEEN CONTACTED ABOUT PT Car Whacker: Karina Oliva DCP- Discharge Planning Updated by [email or web address]: Karina Oliva on 09/07/18 1:[address] Patient Name: PARESH SANCHEZ Admission Status: ER Accout number: [id number] Admission Date: 09-06-2018 : 1950 Admission Diagnosis: Attending: TRINIDAD GODFREY Current LOS: 1 Anticipated DC Date: Planned Disposition: Home Primary Insurance: WELLCARE MEDICARE ADV Discharge Planning Comments: CM met with patient about discharge planning. CM explained CM role and verbal consent was given to do dc assessment. Patient states his discharge plan is to return to home . States home environment is safe. Denies any discharge planning needs at this time. [facility] Duglas Morse [phone] will drive him home upon discharge. CM will continue to follow and assist as needed with discharge planning needs. Car Whacker: Karina Silvestreman DCPIA - Discharge Planning Initial Assessment Updated by [id number]: Karina Oliva on 09/07/18 2:18 pm * Is the patient Alert and Oriented? Yes * How many steps to enter\exit or inside your home? * PCP DR. Montes * Pharmacy [facility] on [facility] * Preadmission Environment Home Alone * ADLs Independent * Equipment Walker Wheelchair * Other Equipment o2 machine that he has never had to use * List name and contact numbers for known caregivers / representatives who currently or will assist patient after discharge: Juju Chahal [phone] Paresh Sanchez [phone] Duglas Morse [phone] transport home * Verbal permission to speak to the caregivers and representatives has been obtained from the patient. N/A * Community resources currently utilized None * Additional services required to return to the preadmission environment? No * Can the patient safely return to the preadmission environment? Yes * Has this patient been hospitalized within the prior 30 days at any hospital? Yes Last DP export: 09/16/18 10:11 am Patient Name: PARESH SANCHEZ Page 29416 at 1129 All edits/amendments must be made on the electronic document DICTATION DATE: 09/16/181128 WOOD BOATBUILDER: ADELA 09/16/181128 RPT#: [id number] MI DATE: STATUS: ADM IN [facility] [address] [place] [address] END OF REPORT
--- NOTE | 2018-09-16 13:20 | NUR ---
Nutrition Follow Up: Pt is on a diabetic diet with 100% intake of all meals yesterday Today pt is not eating much. Pt ate a few bites of breakfast and is sleeping right now during lunch. BG 386, 141 today Yesterday BG 116,141,104,95 Last BM noted 5/3 Pt has several snacks on bedside table Spoke with nursing about intake and BG Will follow up
--- NOTE | 2018-09-16 14:05 | NUR ---
PT'S O2 SAT 66% ON CPAP. RAPID RESPONSE CALLED. DR. GODFREY ORDERED CONTINUOUS BIPAP AFTER ABG'S RESULTED. PT PLACED ON BIPAP MACHINE WILL CONTINUE TO MONITOR.
--- NOTE | 2018-09-16 14:11 | NUR ---
LETHARGIC. AROUSES TO STIMULI. HR UNCONTROLLED AFIB 140. ABGs DRAWN BY RESPIRATORY. D-DIMER ORDERED STAT PER DURING RAPID. O2 SAT IMPROVE FROM 60% WITH CPAP TO 94% NON REBREATHER MASK. BIPAP ORDERED PER . AGREE WITH CITY CONSTABLE ASSESSMENT. JUAN J GUTIERREZ CONTINUES PLAN OF CARE AND SAFETY PRECAUTIONS.
--- NOTE | 2018-09-16 14:28 | NUR ---
PT'S NEEDS IV ACCESS. HAVE NOT BEEN ABLE TO OBTAIN IV ACCESS. CALLED JUANY RN NURSE BIOLOGY SPECIMEN TECHNICIAN AND SHE STATES TO CALL [facility]. CALLED [facility] NURSE AND LEFT A VOICEMAIL. WILL AWAIT RETURN CALL.
--- NOTE | 2018-09-16 15:07 | MORECARE ---
CASE MANAGEMENT DISCHARGE SUMMARY PATIENT: PARESH SANCHEZ UNIT: [id number] ADM DATE: 09/06/18 AGE: 68 : 48 SEX: M ROOM/BED: D.1205 AUTHOR: JARRELLDOC PHYSICIAN: REFERRING PHYSICIAN: TRINIDAD GODFREY MD DATE OF SERVICE: 09/16/18 Discharge Plan Patient Name: PARESH SANCHEZ Facility: [facility]:[place] : 1950 Planned Disposition: Home Anticipated Discharge Date: Discharge Date: Expected LOS: Initial Reviewer: [email or web address] Initial Review Date: 09/07/2018 Generated: 09/16/18 4:06 pm Comments DCP- Discharge Planning Updated by [email or web address]: Karina Oliva on 09/16/18 2:[address] Patient Name: PARESH SANCHEZ Admission Status: ER Accout number: [id number] Admission Date: 09-06-2018 : 1950 Admission Diagnosis:PAIN IN RIGHT KNEE Attending: TRINIDAD GODFREY Current LOS: 10 Anticipated DC Date: Planned Disposition: Home Primary Insurance: WELLCARE MEDICARE ADV Discharge Planning Comments: GONZALO MOSHER CAME TO [facility] AND THEY DO NOT TAKE WELL CARE MCR. PT PATIENT ACCORDING TO PT WILL NOT AT THIS TIME BE ABLE TO PARTICIPATE IN REHAB DUE TO RECENT DECLINE IN HEALTH. A RAPID RESPONSE WAS CALLED ON PT TODAY DUE TO DECLINE IN CONDITION. CM WILL DISCUSS WHEN PT IS AWAKE AND ALERT ENOUGH ABOUT THE OTHER OPTIONS LIKE HOSPICE HE MAY WANT TO CONSIDER WITH NEW DX OF LIVER CA. RESP PUT PT ON CONT BIPAP TODAY DUE TO LOW SATS. CM WILL CONT TO FOLLOW Biofuels Plant Operations Engineer: Karina Oliva DCP- Discharge Planning Updated by [id number]: Karina Oliva on 09/16/18 10:[address] Patient Name: PARESH SANCHEZ Admission Status: ER Accout number: [id number] Admission Date: 09-06-2018 : 1950 Admission Diagnosis:PAIN IN RIGHT KNEE Attending: TRINIDAD GODFREY Current LOS: 10 Anticipated DC Date: Planned Disposition: Home Primary Insurance: WELLCARE MEDICARE ADV Discharge Planning Comments: SPOKE TO PT ABOUT HIS DECLINE IN HEALTH AND OPTIONS FOR CARE AFTER DC. HE STATES HE HAS BEEN THINKING ABOUT THAT AND WANTED TO TRY [facility]. IMM AND POC SIGNED AND PLACED IN MEDICAL RECORD. ANTONIETA AT HAS BEEN CONTACTED ABOUT PT Biofuels Plant Operations Engineer: Karinaoleg Silvestreman DCP- Discharge Planning Updated by [id number]: Karina Oliva on 09/07/18 1:[address] Patient Name: PARESH SANCHEZ Admission Status: ER Accout number: [id number] Admission Date: 09-06-2018 : 1950 Admission Diagnosis: Attending: TRINIDAD GODFREY Current LOS: 1 Anticipated DC Date: Planned Disposition: Home Primary Insurance: WELLCARE MEDICARE ADV Discharge Planning Comments: CM met with patient about discharge planning. CM explained CM role and verbal consent was given to do dc assessment. Patient states his discharge plan is to return to home . States home environment is safe. Denies any discharge planning needs at this time. [facility] Dgulas Lito [phone] will drive him home upon discharge. CM will continue to follow and assist as needed with discharge planning needs. Biofuels Plant Operations Engineer: Karina Silvestreman DCPIA - Discharge Planning Initial Assessment Updated by [email or web address]: Karina Oliva on 09/07/18 2:18 pm * Is the patient Alert and Oriented? Yes * How many steps to enter\exit or inside your home? * PCP DR. Montes * [facility] * Preadmission Environment Home Alone * ADLs Independent * Equipment Walker Wheelchair * Other Equipment o2 machine that he has never had to use * List name and contact numbers for known caregivers / representatives who currently or will assist patient after discharge: Juju Chahal [phone] Paresh Sanchez [phone] Duglas Morse [phone] transport home * Verbal permission to speak to the caregivers and representatives has been obtained from the patient. N/A * Community resources currently utilized None * Additional services required to return to the preadmission environment? No * Can the patient safely return to the preadmission environment? Yes * Has this patient been hospitalized within the prior 30 days at any hospital? Yes Last DP export: 09/16/18 10:29 am Patient Name: PARESH SANCHEZ Page 76049 at 1507 All edits/amendments must be made on the electronic document DICTATION DATE: 09/16/18 1504 SAPPHIRE STYLUS GRINDER: ADELA 09/16/18 1506 RPT#: [id number] DC DATE: STATUS: ADM IN [facility] [address] [place] [address] END OF REPORT
--- NOTE | 2018-09-16 15:26 | NUR ---
ABGS DRAWN WITH RESULTS RAPID RESPONSE CALLED. DR. GODFREY HERE AND ORDERS TO TRANSFER PT TO ICU. FAMILY WAS CALLED WITH NO ANSWER AND NO VOICE MAIL WAS SET UP. PT TRANSFER TO ICU.
--- NOTE | 2018-09-16 15:30 | NUR ---
REC'D PT FROM FLOOR, PT TRANSFERRED INTO ICU BED, MONITORS ON AND WORKING, VITALS OBTAINED, DICKSON CATHETER PLACED, LEFT INPLANTED PORT ACCESSED, PT INTUBATED AND SEDATED. WILL CONTINUE TO OBSERVE.
--- NOTE | 2018-09-16 17:00 | NUR ---
PT SEDATED ON VENT, MONITORS ON AND WORKING, VITALS STABLE, WILL CONTINUE TO OBSERVE.
--- NOTE | 2018-09-16 19:00 | NUR ---
REPORT RECEIVED, CARE ASSUMED. PT IS LAYING IN BED INTUBATED AND SEDATED. INITIAL ASSESSMENT COMPLETED, SEE FLOWSHEET FOR DETAILS. PT REPOSITIONED FOR COMFORT. ORAL CARE PERFORMED. NO SIGNS OF ACUTE DISTRESS NOTED. WILL CONTINUE TO MONITOR.
--- NOTE | 2018-09-16 19:05 | NUR ---
PT HAS MEDICATION SCHEDULED FOR 1729 NOT ABLE TO LOCATE ON UNIT, PREVIOUS NURSE WAS UNABLE TO LOCATE ALSO. WILL CALL PHARMACY TO GET MEDICATION.
--- NOTE | 2018-09-16 19:30 | NUR ---
CALLED PHARMACY ABOUT NOT HAVING PT MEDICATION, INFORMED ME THAT MED 3 MAY HAVE IT. MED 3 WAS UNABLE TO LOCATE, CALLED PHARMACY BACK AND THEY SAID THEY WOULD TAKE CARE OF IT.
--- NOTE | 2018-09-16 21:00 | NUR ---
PT IS INTUBATED AND SEDATED IN BED AT THIS TIME. PT REPOSITIONED FOR COMFORT. ORAL CARE PERFORMED. NO SIGNS OF ACUTE DISTRESS. WILL CONTINUE TO MONITOR.
--- NOTE | 2018-09-16 23:00 | NUR ---
REASSESSMENT COMPLETED, SEE FLOWSHEET FOR DETAILS. PT IS IN BED INTUBATED AND SEDATED. PT REPOSITIONED FOR COMFORT. ORAL CARE PERFORMED. NO SIGNS OF ACUTE DISTRESS NOTED. WILL CONTINUE TO MONITOR.
[2018-09-17] VITALS (32 sets, daily range): BP systolic 68–120; BP diastolic 46–93
--- NOTE | 2018-09-17 01:00 | NUR ---
PT RESTING IN BED INTUBATED AND SEDATED. PT REPOSITIONED FOR COMFORT. ORAL CARE PERFORMED. NO SIGNS OF ACUTE DISTRESS. WILL CONTINUE TO MONITOR.
--- NOTE | 2018-09-17 03:00 | NUR ---
REASSESSMENT COMPLETED, SEE FLOWSHEET FOR DETAILS. PT IS INTUBATED AND SEDATED IN BED AT THIS TIME. NO ACUTE CHANGES NOTED. PT REPOSITIONED FOR COMFORT. ORAL CARE PERFORMED. NO SIGNS OF ACUTE DISTRESS. WILL CONTINUE TO MONITOR.
--- NOTE | 2018-09-17 05:00 | NUR ---
PT IS IN BED INTUBATED AND SEDATED. PT REPOSITIONED FOR COMFORT. ORAL CARE PERFORMED. NO SIGNS OF ACUTE DISTRESS NOTED AT THIS TIME. WILL CONTINUE TO MONITOR.
[2018-09-17 05:04] LABS: INR 1.63 (0.85-1.17); PROTIME 18.7 SECONDS (11.6-15.0)
[2018-09-17 05:19] LABS: ALBUMIN 1.9 g/dL (3.4-5.0); ALKALINE PHOSPHATASE 113 U/L (46-116); ALT (SGPT) 12 U/L (10-68); BILIRUBIN - TOTAL 0.45 mg/dL (0.2-1.3); CHLORIDE - SERUM 101 mmol/L (98-107); CREATININE - SERUM 0.8 mg/dL (0.6-1.3); POTASSIUM - SERUM 3.6 mmol/L (3.5-5.1); PROTEIN - SERUM 6.1 g/dL (6.4-8.2); SODIUM 139 mmol/L (136-145); UREA NITROGEN 13 mg/dL (7-18); eGFR NON AFRICAN AMERICAN > 90 mL/min (90-120)
[2018-09-17 05:24] LABS: CALC OSMOLALITY 275 mosm/kg (275-300); GLUCOSE 69 mg/dL (74-106)
[2018-09-17 07:21] LABS: BASOPHILS 0.3 % (0-2); EOSINOPHILS 0.9 % (0-7); HEMATOCRIT 29.8 % (42.0-54.0); HEMOGLOBIN 8.6 g/dL (13.5-17.5); IMMATURE GRANULOCYTES 0.4 % (0-5); LYMPHOCYTES 15.9 % (15-50); MCH 23.2 pg (26.0-34.0); MCHC 28.9 g/dL (31.0-37.0); MEAN PLATELET VOLUME 8.8 fL (7.4-10.4); MONOCYTES 9.3 % (2-11); NEUTROPHILS 73.2 % (40-80); PLATELET COUNT 371 10x3/uL (130-400); RBC 3.71 10x6/uL (4.20-6.10); RDW 20.6 % (11.5-14.5); WBC 6.8 10x3/uL (4.8-10.8)
[2018-09-17 07:26] LABS: MCV 80.3 fL (80.0-100.0)
--- NOTE | 2018-09-17 09:38 | NUR ---
NUTRITION F//U CHART REVIEWED. PT ON VENT IN ISOLATION. NO CURRENT NUTRITION SUPPORT. IF UNABLE TO WEAN FROM VENT, RECOMMEND STARTING PULMOCARE TUBE FEEDS. CURRENT GOAL RATE 60 CC/HR. RD FOLLOWING
--- NOTE | 2018-09-17 19:00 | NUR ---
REPORT RECEIVED, CARE ASSUMED. PT IS IN BED INTUBATED AND SEDATED. INITIAL ASSESSMENT COMPLETED, SEE FLOWSHEET FOR DETAILS. PT'S FELT FINISHING SUPERVISOR IS SHOWING UNCONTROLLED AFIB WITH A RATE OF 150-160. PER DR GODFREY STARTED CARDIZEM DRIP. BP IS ON THE LOW SIDE, WILL MONITOR. PT REPOSITIONED FOR COMFORT. ORAL CARE PERFORMED. WILL CONTINUE TO MONITOR CLOSELY.
--- NOTE | 2018-09-17 21:00 | NUR ---
PT IS LAYING IN BED INTUBATED AND SEDATED. SPOKE WITH DR KANG AND WAS GIVEN NEW ORDERS. PT'S HR IS STILL SHOWING UNCONTROLLED AFIB WITH RATE UP TO 160, INCREASED CARDIZEM DRIP TO 15. BP STILL ON THE LOW SIDE. WILL CONTINUE TO MONITOR.
--- NOTE | 2018-09-17 23:00 | NUR ---
PT BP HAS DROPPED EVEN FURTHER, KEO-SYNEPHRINE STARTED AT 10MCG/MIN. PT'S HR IS STILL 150-160'S UNCONTROLLED AFIB. SPOKE WITH DR GODFREY, NEW ORDERS RECEIVED. REASSESSMENT COMPLETED, SEE FLOWSHEET FOR DETAILS. PT REPOSITIONED FOR COMFORT. ORAL CARE PERFORMED. STILL CONTINUING TO MONITOR CLOSELY.
[2018-09-18] VITALS (97 sets, daily range): BP systolic 71–131; BP diastolic 45–91
--- NOTE | 2018-09-18 00:40 | NUR ---
RT CHANGED VENT SETTINGS TO A PEEP OF [address] GODFREY.
--- NOTE | 2018-09-18 01:00 | NUR ---
PT IS RESTING IN BED INTUBATED AND SEDATED. PT REPOSITIONED FOR COMFORT. ORAL CARE PERFORMED. TITRATING DRIPS AT THIS TIME. NO SIGNS OF ACUTE DISTRESS. WILL CONTINUE TO MONITOR.
--- NOTE | 2018-09-18 03:00 | NUR ---
REASSESSMENT COMPLETED, SEE FLOWSHEET FOR DETAILS. PT IS LAYING IN BED INTUBATED AND SEDATED. PT REPOSITIONED FOR COMFORT. ORAL CARE PERFORMED. STILL TITRATING DRIPS. NO SIGNS OF ACUTE DISTRESS. WILL CONTINUE TO MONITOR.
--- NOTE | 2018-09-18 05:00 | NUR ---
PT IS IN BED INTUBATED AND SEDATED. PT REPOSITIONED FOR COMFORT. ORAL CARE PERFORMED. NO SIGNS OF ACUTE DISTRESS. WILL CONTINUE TO MONITOR.
[2018-09-18 05:17] LABS: INR 1.61 (0.85-1.17); PROTIME 18.5 SECONDS (11.6-15.0)
[2018-09-18 05:25] LABS: BASOPHILS 0.1 % (0-2); EOSINOPHILS 0.6 % (0-7); HEMATOCRIT 30.8 % (42.0-54.0); HEMOGLOBIN 9.2 g/dL (13.5-17.5); IMMATURE GRANULOCYTES 0.6 % (0-5); LYMPHOCYTES 13.9 % (15-50); MCH 23.8 pg (26.0-34.0); MCHC 29.9 g/dL (31.0-37.0); MCV 79.6 fL (80.0-100.0); MEAN PLATELET VOLUME 9.6 fL (7.4-10.4); MONOCYTES 9.3 % (2-11); NEUTROPHILS 75.5 % (40-80); PLATELET COUNT 381 10x3/uL (130-400); RBC 3.87 10x6/uL (4.20-6.10); RDW 21.3 % (11.5-14.5)
[2018-09-18 05:45] LABS: WBC 8.9 10x3/uL (4.8-10.8)
[2018-09-18 06:08] LABS: ALBUMIN 1.7 g/dL (3.4-5.0); ANION GAP 9.7 mmol/L (8-16); BILIRUBIN - TOTAL 0.51 mg/dL (0.2-1.3); CALCIUM 7.6 mg/dL (8.5-10.1); CARBON DIOXIDE 33.2 mmol/L (21.0-32.0); POTASSIUM - SERUM 3.9 mmol/L (3.5-5.1); PROTEIN - SERUM 5.7 g/dL (6.4-8.2)
[2018-09-18 06:19] LABS: CREATININE - SERUM 1.1 mg/dL (0.6-1.3)
--- NOTE | 2018-09-18 07:00 | NUR ---
RECEIVED REPORT FROM OFFGOING SHIFT. PT INTUBATED WITH VENTILATOR SET TO PRESCRIBED SETTINGS. O2 SAT 93% AT 100% FIO2. LEFT SUBCLAVIAN INFUSING PROFOFOL AT 30 MCG. FENTANYL AT 300 MCG. NEOSYNEPHRINE AT 45 MCG. AMIODARINE AT 0.5MCG. CARDIZEM AT 5ML/HR VIA LEFT FOREARM. NS AT 10. IN CONTROLLED A-FIB. WILL CONTINUE TO MONITOR.
--- NOTE | 2018-09-18 09:00 | NUR ---
PULLED UP IN BED AND TURNED TO LEFT SIDE. VSS. WILL CONTINUE TO MONITOR
--- NOTE | 2018-09-18 10:47 | NUR ---
OBTAINED EKG PER ORDER. SCANNED AND UPLOADED TO CHART.
--- NOTE | 2018-09-18 12:00 | NUR ---
TITRATED PROPOFOL DOWN TO 25MCG FROM 30 MCG TO REDUCE SEDATION.
--- NOTE | 2018-09-18 13:04 | NUR ---
TITRATED PROPOFOL DOWN TO 20MCG/KG/MIN. WILL CONTINUE TO MONITOR SEDATION. STATUS.
--- NOTE | 2018-09-18 13:48 | NUR ---
INCREASED PROPOFOL TO 25MCG BECAUSE PATIENT COUGHING ON ETT TOO MUCH.
--- NOTE | 2018-09-18 14:00 | NUR ---
LEAVING PROPOFOL AT 25MCG/KG/MIN PT NOT GAGGING ON ETT SINCE INCREASE FROM 20 MCG. VSS. WILL CONTINUE TO MONITOR
--- NOTE | 2018-09-18 15:00 | NUR ---
PT RESTING IN BED SEDATED ON VENTILATOR. VSS. STILL IN UNCONTROLLED A-FIB WITH CARDIZEM AND AMIODARONE DRIP. REPLACED POTASSIUM PER PROTOCOL. NOTIFIED DR. GODFREY OF LOW IONIZED CALCIUM.
--- NOTE | 2018-09-18 16:02 | NUR ---
HIBBA CLEANSE BATH GIVEN.
--- NOTE | 2018-09-18 17:16 | NUR ---
CONSULTED DR. LA FOR ART LINE.
--- NOTE | 2018-09-18 17:30 | NUR ---
ART LINE PLACED BY DR. LA TO LEFT RADIAL.
--- NOTE | 2018-09-18 18:00 | NUR ---
CONSULTED DR. CAMPO ABOUT UNCONTROLLED AFIB AND HYPOTENSION. ORDERS FOR 0.5DIG IV NOW AND .25 DIG Q 2 HOURS X 2. DC CARDIZEM WHEN RATE IS CONTROLLED.
--- NOTE | 2018-09-18 19:00 | NUR ---
REPORT RECEIVED FROM MAREK RN, CARE ASSUMED. PT IS LAYING IN BED INTUBATED AND SEDATED. PT REPOSITIONED FOR COMFORT. ORAL CARE PERFORMED. FAMILY CALLED, UPDATE GIVEN. INITIAL ASSESSMENT COMPLETED, SEE FLOWSHEET FOR DETAILS. CHANGED KEO DRIP TO WEIGHT BASED DOSEAGE, IMMEDIATE DIFFERENCE IN BP NOTICED. NO SIGNS OF ACUTE DISTRESS NOTED AT THIS TIME. WILL CONTINUE TO MONITOR.
--- NOTE | 2018-09-18 21:00 | NUR ---
PT IS LAYING IN BED INTUBATED AND SEDATED. PT REPOSITIONED FOR COMFORT. ORAL CARE PERFORMED. NO SIGNS OF ACUTE DISTRESS NOTED AT THIS TIME. WILL CONTINUE TO MONITOR.
--- NOTE | 2018-09-18 23:00 | NUR ---
REASSESSMENT COMPLETED, SEE FLOWSHEET FOR DETAILS. PT REPOSITIONED FOR COMFORT. ORAL CARE PERFORMED. NO SIGNS OF ACUTE DISTRESS NOTED. WILL CONTINUE TO MONITOR.
[2018-09-19] VITALS (92 sets, daily range): BP systolic 79–142; BP diastolic 32–82; BMI 47.5
--- NOTE | 2018-09-19 01:00 | NUR ---
PT IS RESTING IN BED INTUBATED AND SEDATED. PT REPOSITIONED FOR COMFORT. ORAL CARE PERFORMED. NO SIGNS OF ACUTE DISTRESS NOTED. WILL CONTINUE TO MONITOR CLOSELY.
--- NOTE | 2018-09-19 03:00 | NUR ---
REASSESSMENT COMPLETED, SEE FLOWSHEET FOR DETAILS. PT GIVEN FULL BED BATH/LINENS CHANGED. WHILE TURNING PT IT WAS NOTED THAT HIS ART LINE PRESSURE DROPPED SIGNIFICANTLY, PRESSURE DID NOT IMMEDIATELY IMPROVE UPON RETURNING PT TO A RESTING POSITION. ART LINE WAS ZEROED, AGAIN NO IMPROVEMENT IN PRESSURE. IT TOOK APPROXIMATELY 10 MINS FOR PT'S BP TO IMPROVE. MONITORED PT VERY CLOSELY IN THIS TIME PERIOD. NO FURTHER CHANGES NOTED IN PT, WILL CONTINUE TO MONITOR.
[2018-09-19 04:03] LABS: HEMOGLOBIN 9.6 g/dL (13.5-17.5); MCH 23.7 pg (26.0-34.0); PLATELET COUNT 394 10x3/uL (130-400); RBC 4.05 10x6/uL (4.20-6.10); RDW 21.6 % (11.5-14.5); WBC 10.4 10x3/uL (4.8-10.8)
[2018-09-19 04:10] LABS: INR 1.66 (0.85-1.17); PROTIME 18.9 SECONDS (11.6-15.0)
[2018-09-19 04:27] LABS: ALBUMIN 1.6 g/dL (3.4-5.0); ANION GAP 7.5 mmol/L (8-16); BILIRUBIN - TOTAL 0.64 mg/dL (0.2-1.3); CALCIUM 7.4 mg/dL (8.5-10.1); CARBON DIOXIDE 34.8 mmol/L (21.0-32.0); CREATININE - SERUM 1.5 mg/dL (0.6-1.3); PROTEIN - SERUM 5.7 g/dL (6.4-8.2)
[2018-09-19 04:28] LABS: POTASSIUM - SERUM 3.3 mmol/L (3.5-5.1)
[2018-09-19 04:52] LABS: EOSINOPHILS 2 % (0-7); LYMPHOCYTES 12 % (15-50); MONOCYTES 7 % (2-11); NEUTROPHILS 79 % (40-80); PLATELET ESTIMATE NORMAL; PLATELET MORPHOLOGY GIANT PLTS PRESENT
--- NOTE | 2018-09-19 05:00 | NUR ---
PT IN BED INTUBATED AND SEDATED. PT REPOSITIONED FOR COMFORT. ORAL CARE PERFORMED. SEDATION VACTION PERFORMED. PT DID NOT AWAKEN DURING THE SEDATION VACTION UNTIL XR TECH ARRIVED AND PT WAS MOVED TO PLACE BOARD BEHIND HIM. PT WAS GAGGING ON TUBE BUT NOT FOLLOWING COMMANDS. IMMEDIATELY AFTER XR FINISHED PT WENT BACK TO RESTING AND HAS NOT SHOWED ANY SIGNS OF BEING AWAKE. WILL CONTINUE TO MONITOR CLOSELY.
--- NOTE | 2018-09-19 09:20 | NUR ---
NUTRITION F/U PT REMAINS ON VENT. SPOKE WITH DR. KANG, VERBAL ORDER RECEIVED TO START TUBE FEEDS. INFORMED NURSING OF SAME. WILL START PULMOCARE AT 20 CC/HR. RD FOLLOWING
--- NOTE | 2018-09-19 09:27 | NUR ---
0800 REPOST RECIEVED AND CARE ASSUMED OF PATIENT.. PT IS OBTUNDED ON VENT SEE FLOW SHEET FOR ASSESMENT FINDINGS... PT IS WITHOUT SEDATION , ORALLY INTUBATED ON VENT.. ISOLATION .. 0830 DR ARZATE IN TO SEE PT.. 0915 DR KANG IN TO SEE PT.. UPDATE GIVEN..
--- NOTE | 2018-09-19 17:50 | NUR ---
0930 DR ARZATE IN TO SEE PT ... ORDERS RECIEVED.. 1030 PT IS OPENING EYES TO NOXIOUS STIMULI DOES NOT FOLLOW COMMANDS.. 1200 DEACON FROM [facility] AND 2 FRIENDS IN TO SEE PT.. UPDATE IS GIVEN TO THEM 1400 PT REMAINS UNCHANGED.. REMAINS ON THE KEO DRIP AND AMIODERONE DRIP.. 1600 FAMILY MEMBERS IN TO SEE PT..STARTED TALKING ABOUT POA CASE MANAGMENT INFORMED OF POTENTIAL PT ISSUES 1730 VISITORS SPEAKING WITH CASE MANAGMENT AT BEDSIDE..
--- NOTE | 2018-09-19 19:07 | MORECARE ---
CASE MANAGEMENT DISCHARGE SUMMARY PATIENT: PARESH SANCHEZ UNIT: [id number] ADM DATE: 09/06/18 AGE: 68 : 48 SEX: M ROOM/BED: D.2312 AUTHOR: JARRELL,DOC PHYSICIAN: REFERRING PHYSICIAN: TRINIDAD GODFREY MD DATE OF SERVICE: 09/19/18 Discharge Plan Patient Name: PARESH SANCHEZ Facility: [facility]:[place] : 1950 Planned Disposition: Home Anticipated Discharge Date: Discharge Date: Expected LOS: Initial Reviewer: [email or web address] Initial Review Date: 09/07/2018 Generated: 09/19/18 8:07 pm Comments DCP- Discharge Planning Updated by [id number]: Janna Colten on 09/19/18 6:[address] CM spoke with long time family friend Juju Wright [phone]. She was very concerned that the patient doesn't have a medical POA. She did state that the patient has a step-son Jadiel [facility] [phone] that lives in [place] that is the patients financial POA. He has access to the patient's checking accounts. She was very concerned that if the patient that there aren't any arrangements made. She stated that the patient wanted to be cremated. CM explained that if something did happen that the crematory would take payment over the phone via credit card. CM will give pamphlet regarding crematory to Juju. CM will continue to follow and assist as needed with discharge planning / needs. DCP- Discharge Planning Updated by [id number]: Karina Oliva on 09/16/18 2:[address] Patient Name: PARESH SANCHEZ Admission Status: ER Accout number: [id number] Admission Date: 09-06-2018 : 1950 Admission Diagnosis:PAIN IN RIGHT KNEE Attending: TRINIDAD GODFREY Current LOS: 10 Anticipated DC Date: Planned Disposition: Home Primary Insurance: [employer] ADV Discharge Planning Comments: GONZALO MOSHER CAME TO [facility] AND THEY DO NOT TAKE WE[employer] MCR. PT PATIENT ACCORDING TO PT WILL NOT AT THIS TIME BE ABLE TO PARTICIPATE IN REHAB DUE TO RECENT DECLINE IN HEALTH. A RAPID RESPONSE WAS CALLED ON PT TODAY DUE TO DECLINE IN CONDITION. CM WILL DISCUSS WHEN PT IS AWAKE AND ALERT ENOUGH ABOUT THE OTHER OPTIONS LIKE HOSPICE HE MAY WANT TO CONSIDER WITH NEW DX OF LIVER CA. RESP PUT PT ON CONT BIPAP TODAY DUE TO LOW SATS. CM WILL CONT TO FOLLOW Plater Barrel: Karina Oliva DCP- Discharge Planning Updated by [id number]: Karina Oliva on 09/16/18 10:[address] Patient Name: PARESH SANCHEZ Admission Status: ER Accout number: [id number] Admission Date: 09-06-2018 : 1950 Admission Diagnosis:PAIN IN RIGHT KNEE Attending: TRINIDAD GODFREY Current LOS: 10 Anticipated DC Date: Planned Disposition: Home Primary Insurance: [facility] MEDICARE ADV Discharge Planning Comments: SPOKE TO PT ABOUT HIS DECLINE IN HEALTH AND OPTIONS FOR CARE AFTER DC. HE STATES HE HAS BEEN THINKING ABOUT THAT AND WANTED TO TRY [facility]. IMM AND POC SIGNED AND PLACED IN MEDICAL RECORD. NATONIETA AT HAS BEEN CONTACTED ABOUT PT Plater Barrel: Karina Silvestreman DCP- Discharge Planning Updated by [id number]: Karina Oliva on 09/07/18 1:[address] Patient Name: PARESH SANCHEZ Admission Status: ER Accout number: [id number] Admission Date: 09-06-2018 : 1950 Admission Diagnosis: Attending: TRINIDAD GODFREY Current LOS: 1 Anticipated DC Date: Planned Disposition: Home Primary Insurance: [facility] MEDICARE ADV Discharge Planning Comments: CM met with patient about discharge planning. CM explained CM role and verbal consent was given to do dc assessment. Patient states his discharge plan is to return to home . States home environment is safe. Denies any discharge planning needs at this time. [facility] Duglas Morse [phone] will drive him home upon discharge. CM will continue to follow and assist as needed with discharge planning needs. Plater Barrel: Karina Oliva DCPIA - Discharge Planning Initial Assessment Updated by [id number]: Karina Oliva on 09/07/18 2:18 pm * Is the patient Alert and Oriented? Yes * How many steps to enter\exit or inside your home? * PCP DR. Montes * Pharmacy [facility] * Preadmission Environment Home Alone * ADLs Independent * Equipment Walker Wheelchair * Other Equipment o2 machine that he has never had to use * List name and contact numbers for known caregivers / representatives who currently or will assist patient after discharge: Juju Chahal [phone] Paresh Sanchez [phone] Duglas Lito [phone] transport home * Verbal permission to speak to the caregivers and representatives has been obtained from the patient. N/A * Community resources currently utilized None * Additional services required to return to the preadmission environment? No * Can the patient safely return to the preadmission environment? Yes * Has this patient been hospitalized within the prior 30 days at any hospital? Yes Last DP export: 09/16/18 2:07 pm Patient Name: PARESH SANCHEZ Page [id number] at 1907 All edits/amendments must be made on the electronic document DICTATION DATE: 09/19/181906 CIRCULAR SAW EDGE FUSER: ADELA 09/19/181906 RPT#: [id number] DC DATE: STATUS: ADM IN [facility] [address] [place] [address] END OF REPORT
--- NOTE | 2018-09-19 19:53 | NUR ---
PT RECEIVED SEDATED ON VENT. OPENS EYES TO STIMULI. VSS. WILL CONTINUE TO OBSERVE.
--- NOTE | 2018-09-19 22:05 | NUR ---
PT RECEIVED SCHEDULED MEDICATIONS PER MAR VIA OGT. VSS. CONTINUES VENT WITH SEDATION. WILL CONTINUE TO OBSERVE.
--- NOTE | 2018-09-19 23:59 | NUR ---
REASSESSMENT COMPLETED, SEE FLOW SHEET. TUBE FEEDING STARTED AT 20ML/HR WITH 50ML Q 4HR. VSS. WILL CONTINUE TO OBSERVE
[2018-09-20] VITALS (83 sets, daily range): BP systolic 83–142; BP diastolic 43–83
--- NOTE | 2018-09-20 02:23 | NUR ---
PT CONTINUE VENT WITH SEDATION. TITRATED KEO TO 0.8MCG FROM 0.9MCG. WILL CONTINUE TO OBSERVE.
--- NOTE | 2018-09-20 03:35 | NUR ---
REASSESSMENT COMPLETED, SEE FLOW SHEET. VSS. WILL CONTINUE TO OBSERVE.
[2018-09-20 05:43] LABS: INR 1.62 (0.85-1.17); PROTIME 18.6 SECONDS (11.6-15.0)
[2018-09-20 06:07] LABS: BASOPHILS 0.2 % (0-2); EOSINOPHILS 0.9 % (0-7); HEMOGLOBIN 9.2 g/dL (13.5-17.5); IMMATURE GRANULOCYTES 0.2 % (0-5); LYMPHOCYTES 9.4 % (15-50); MCH 23.4 pg (26.0-34.0); MCHC 29.7 g/dL (31.0-37.0); MCV 78.9 fL (80.0-100.0); MEAN PLATELET VOLUME 9.4 fL (7.4-10.4); NEUTROPHILS 79.3 % (40-80); PLATELET COUNT 379 10x3/uL (130-400); RBC 3.93 10x6/uL (4.20-6.10); RDW 21.4 % (11.5-14.5)
[2018-09-20 06:13] LABS: CALCIUM 7.8 mg/dL (8.5-10.1); CARBON DIOXIDE 31.9 mmol/L (21.0-32.0); CREATININE - SERUM 1.3 mg/dL (0.6-1.3)
[2018-09-20 06:28] LABS: POTASSIUM - SERUM 2.9 mmol/L (3.5-5.1)
--- NOTE | 2018-09-20 07:00 | NUR ---
RECEIVED PT FROM OFFGOING SHIFT. VSS. WILL CONTINUE TO MONITOR
--- NOTE | 2018-09-20 09:00 | NUR ---
VSS. ORAL CARE GIVEN. WILL CONTINUE TO MONITOR
--- NOTE | 2018-09-20 10:18 | NUR ---
NUTRITION F/U PT REMAINS ON VENT, NURSING REPORTS PT TOLERATING PULMOCARE AT CURRENT RATE 20 CC/HR. WILL CONTINUE TO MONITOR AND ADVANCE RATE WHEN OK WITH MD. FERNANDES FOLLOWING
--- NOTE | 2018-09-20 11:00 | NUR ---
PT RESTING IN BED C VSS. TURNED OFF SEDATION FOR CPAP TRIAL
--- NOTE | 2018-09-20 11:10 | NUR ---
PT TAKEN TO NUCLEAR MEDICINE FOR SCAN OF HEAD AT THIS TIME. VS MACHINE TAKEN WITH PATIENT.
--- NOTE | 2018-09-20 13:00 | NUR ---
PT BACK ON SEDATION AT 200MCG/MIN. WAS APNEIC DURING CPAP TRIAL THOUGH EASILY WAKABLE. VSS.
--- NOTE | 2018-09-20 15:00 | NUR ---
VSS. WILL CONTINUE TO MONITOR
--- NOTE | 2018-09-20 17:00 | NUR ---
PT RESTING IN BED C VSS. OBTAINED URINE SPECIMEN FOR UA.
[2018-09-20 17:56] LABS: APPEARANCE HAZY (CLEAR); BILIRUBIN NEGATIVE (NEGATIVE); COLOR YELLOW (YELLOW); GLUCOSE NEGATIVE (NEGATIVE); KETONE NEGATIVE (NEGATIVE); NITRITE POSITIVE (NEGATIVE); PROTEIN TRACE mg/dL (NEGATIVE); SPECIFIC GRAVITY 1.005 (1.005-1.020); UROBILINOGEN NORMAL (NORMAL)
[2018-09-20 17:58] LABS: BACTERIA MANY /hpf (NONE SEEN); RED CELLS - URINE 0-5 /hpf (0-5)
--- NOTE | 2018-09-20 19:15 | NUR ---
SHIFT ASSESSMENT COMPLETED SEE FLOWSHEET
--- NOTE | 2018-09-20 21:02 | NUR ---
HS MEDS RECEIVED. VSS CPOC
--- NOTE | 2018-09-20 23:20 | NUR ---
REASSESSMENT COMPLETED SEE FLOWSHEET
[2018-09-21] VITALS (69 sets, daily range): BP systolic 82–142; BP diastolic 42–101
--- NOTE | 2018-09-21 01:15 | NUR ---
PATIENT INTUBATED, LIGHTLY SEDATED VSS CPOC
--- NOTE | 2018-09-21 01:54 | NUR ---
CHANGED TUBE FEED BAG PER POLICY - OG TUBE PLACEMENT CHECKED PRIOR TO INITIATION OF NEW TUBE FEED AIR BOLUS AUDIBLE LLQ
--- NOTE | 2018-09-21 02:43 | NUR ---
PT FAMILY CALLED AT THIS TIME, PASSWORD GIVEN, UPDATE PROVIDED ALL QUESTIONS ANSWERED SAID THEY WILL COME TO VISIT TODAY 1600 VISITING HOURS
--- NOTE | 2018-09-21 03:40 | NUR ---
PATIENT INTUBATED/LIGHTLY SEDATED - NO APPARENT DISTRESS CPOC
[2018-09-21 06:52] LABS: BASOPHILS 0.1 % (0-2); EOSINOPHILS 1.3 % (0-7); HEMATOCRIT 29.3 % (42.0-54.0); HEMOGLOBIN 8.9 g/dL (13.5-17.5); IMMATURE GRANULOCYTES 0.4 % (0-5); LYMPHOCYTES 8.8 % (15-50); MCH 23.9 pg (26.0-34.0); MCHC 30.4 g/dL (31.0-37.0); MCV 78.6 fL (80.0-100.0); MEAN PLATELET VOLUME 9.2 fL (7.4-10.4); MONOCYTES 11.4 % (2-11); PLATELET COUNT 307 10x3/uL (130-400); RBC 3.73 10x6/uL (4.20-6.10); RDW 21.4 % (11.5-14.5); WBC 7.2 10x3/uL (4.8-10.8)
--- NOTE | 2018-09-21 07:00 | NUR ---
REC'D SEDATED W/ FENTANYL ON VENT. VSS.
[2018-09-21 07:07] LABS: ALBUMIN 1.8 g/dL (3.4-5.0); ANION GAP 11.3 mmol/L (8-16); BILIRUBIN - TOTAL 0.58 mg/dL (0.2-1.3); CALCIUM 7.6 mg/dL (8.5-10.1); CARBON DIOXIDE 29.5 mmol/L (21.0-32.0); CREATININE - SERUM 1.3 mg/dL (0.6-1.3); PROTEIN - SERUM 6.6 g/dL (6.4-8.2)
[2018-09-21 07:10] LABS: POTASSIUM - SERUM 2.8 mmol/L (3.5-5.1)
--- NOTE | 2018-09-21 08:30 | NUR ---
ASSESSED, VSS, VERY WEAK BUT FOLLOWS REQUEST. FENTANYL ON HOLD FOR SEDATION VACATION.
--- NOTE | 2018-09-21 09:50 | NUR ---
DESAT'S, COPIOUS SECRETIONS, FIO2 UP TO 80%, FENTANYL GTT RESTARTED. CALMS QUICKLY W/ SAT UP TO 95%.
--- NOTE | 2018-09-21 12:00 | NUR ---
REASSESSED W/O CHANGES, VSS ON KEO, SEDATED ON VENT.
--- NOTE | 2018-09-21 16:45 | NUR ---
ZACHARY IN AND UPDATED- LEAVES NAME OF HOME- [facility]
--- NOTE | 2018-09-21 17:00 | NUR ---
COMPLETE BATH AND LINEN CHANGE DONE.
--- NOTE | 2018-09-21 19:30 | NUR ---
SHIFT ASSESSMENT COMPLETED SEE FLOWSHEET. PATIENT IS INTUBATED/SEDATED RESTING COMFORTABLY ON VENTILATOR. NO APPARENT SIGNS OF DISTRESS. VSS CPOC
--- NOTE | 2018-09-21 20:38 | NUR ---
JOHNSON CURDLED LIQUID COMING FROM PATIENT MOUTH. TUBE FEED STOPPED ORAL CARE PERFORMED, PATIENT SATS SHOW NO CHANGE. SYSTOLIC BP IS HIGH 80'S. TITRATED MEDICATION AT THIS TIME SEE IV DRIP SHEET. AIR BOLUS AUDIBLE LLQ - 10 CC RESIDUALS RETURNED TO AT THIS TIME. TUBE FEED RESUMED FOR NOW WILL MONITOR CLOSELY. NO APPARENT DISTRESS, PT DENIES PAIN OR DISCOMFORT VIA NON VERBAL COMMUNICATION. NODS HEAD APPROPRIATELY TO YES AND NO QUESTIONS
--- NOTE | 2018-09-21 22:58 | NUR ---
PATIENT INTUBATED, LIGHTLY SEDATED FOLLOWS COMMANDS. CORN CUTTER EVEN EQUAL BILAT - WEAK GRIPPING AT THIS TIME. ABLE TO MOVE FEET. SYSTOLIC BP LOW TITRATED MEDICATIONS AT THIS TIME. SEE IV DRIP FLOWSHEET FOR DETAILS. REASSESSMENT COMPLETED SEE FLOWSHEET. CPOC
[2018-09-22] VITALS (97 sets, daily range): BP systolic 78–125; BP diastolic 28–559
--- NOTE | 2018-09-22 00:28 | NUR ---
ORDER READS WEIGHT BASED NEOSYNEPHRINE DOSING
--- NOTE | 2018-09-22 03:22 | NUR ---
REASSESSMENT COMPLETED SEE FLOWSHEET
--- NOTE | 2018-09-22 05:37 | NUR ---
PHONE CALL RECEIVED FROM PATIENT FAMILY - PASSWORD GIVEN, ALL QUESTIONS ANSWERED
--- NOTE | 2018-09-22 07:00 | NUR ---
REC'D EYES CLOSED/RESP UNLABORED. SEDATED ON VENT.
[2018-09-22 07:12] LABS: ANION GAP 11.8 mmol/L (8-16); CALCIUM 7.8 mg/dL (8.5-10.1); CARBON DIOXIDE 28.4 mmol/L (21.0-32.0); CREATININE - SERUM 1.2 mg/dL (0.6-1.3); POTASSIUM - SERUM 3.2 mmol/L (3.5-5.1)
--- NOTE | 2018-09-22 08:30 | NUR ---
ASSESSMENT COMPLETE. OGT ADVANCED.
[2018-09-22 09:09] LABS: INR 2.33 (0.85-1.17); PROTIME 24.8 SECONDS (11.6-15.0)
--- NOTE | 2018-09-22 12:15 | NUR ---
REASSESSED W/O CHANGES. REPOSITIONED. VISITORS IN AND UPDATED.
--- NOTE | 2018-09-22 14:40 | NUR ---
REPOSITIONED. SEDATION VACATION INITIATED.
--- NOTE | 2018-09-22 18:45 | NUR ---
SBP 80'S- KEO INCREASED TO 40MCG/MIN.OPENS EYES TO VERBAL.
--- NOTE | 2018-09-22 19:10 | NUR ---
RECEIVED PATIENT CARE, SHIFT ASSESSMENT COMPLETED SEE FLOWSHEET. VSS CPOC PATIENT DENIES NEEDS
--- NOTE | 2018-09-22 19:15 | NUR ---
PATIENT CARE RECEIVED - SHIFT ASSESSMENT COMPLETED LOW SYSTOLIC BP - NEOSYNEPHRINE TITRATED AT THIS TIME SEE IV DRIP FLOWSHEET -PATIENT IS INTUBATED - LIGHTLY SEDATED, OPENS EYES SPONTANEOUSLY, PATIENT DIAPHORETIC TEMP ELEVATED 99.8 - CPOC
--- NOTE | 2018-09-22 21:30 | NUR ---
pt awake, on vent vss cpoc
--- NOTE | 2018-09-22 23:30 | NUR ---
reassessment completed see flowsheet
[2018-09-23] VITALS (94 sets, daily range): BP systolic 73–138; BP diastolic 32–82
--- NOTE | 2018-09-23 03:09 | NUR ---
REASSESSMENT COMPLETED SEE FLOWSHEET
--- NOTE | 2018-09-23 07:00 | NUR ---
SHIFT ASSESSMENT COMPLETED, PT CARE ASSUMED MONITORS ON AND WORKING, VITALS STABLE. VENT SETTINGS NOTED, DICKSON STAT LOCKED IN PLACE, MONITORS ON AND WORKING, SEE FLOW SHEET FOR FURTHER DETAILS. WILL CONTINUE TO OBSERVE.
--- NOTE | 2018-09-23 09:00 | NUR ---
PT TURNED AND REPOSITIONED FOR COMFORT, ORAL CARE DONE AT THIS TIME, MONITORS ON AND WORKING, VITALS STABLE. NO SIGNS/SYMPTOMS OF PAIN OR DISCOMFORT NOTED AT THIS TIME. WILL CONTINUE TO OBSERVE.
--- NOTE | 2018-09-23 10:30 | NUR ---
Nutrition Follow Up: Pt continues on vent. Spoke with nursing who reported that pt is tolerating TF of Pulmocare at current goal rate of 25 ml/hr. Nursing stated that per MD no advance for now on TF. I<O BM: 09/13/18 - No BM x 7 days Wt stable Labs reviewed Meds noted including Fentanyl, Lasix When okay with MD, rec increasing TF of Pulmocare 10 ml every 6-8 hours as tolerated to goal rate of 65 ml/hr with 45 ml/hr H2O flush. RD following.
--- NOTE | 2018-09-23 11:00 | NUR ---
PT TURNED AND REPOSITIONED FOR COMFORT, ORAL CARE PROVIDED AT THIS TIME, NO SIGNS/SYMPTOMS OF PAIN OR DISCOMFORT NOTED AT THIS TIME, WILL CONTINUE TO OBSERVE.
--- NOTE | 2018-09-23 13:00 | NUR ---
PT TURNED AND REPOSITIONED, FAMILY CALLED, PASSWORD CONFIRMED AND UPDATE PROVIDED, NO SIGNS/SYMPTOMS OF PAIN OR DISCOMFORT NOTED AT THIS TIME, MONITORS ON AND WORKING, VITALS STABLE WILL CONTINUE TO OBSERVE.
--- NOTE | 2018-09-23 15:00 | NUR ---
NO CHANGES, SEE FLOW SHEET FOR FURTHER DETIALS. MONITORS ON AND WORKING, WILL CONTINUE TO OBSERVE.
--- NOTE | 2018-09-23 17:00 | NUR ---
PT TURNED AND REPOSITIONED, ORAL CARE DONE AT THIS TIME, FULL LINEN CHANGE AND BED BATH DONE AT THIS TIME WELL. MONITORS ON AND WORKING, VITALS STABLE, WILL CONTINUE TO OBSERVE.
--- NOTE | 2018-09-23 19:19 | NUR ---
BEDSIDE SHIFT REPORT GIVEN BY DEPARTING RN. PT AWAKE ON VENT WITH RESTRAINTS. LEFT CHEST WALL INFUSAPORT INFUSING MD ORDERED MEDS WITHOUT DIFFICULTY. RT RADIAL ART LINE WAVE DIMINISHED. BP CUFF CONSISTANT. F/C DRAINING TO GRAVITY. PT OPENS EYES SPONTANIOUSLY. ASSESSMENT COMPLETE. SEE FS FOR DETAILS.
--- NOTE | 2018-09-23 21:16 | NUR ---
FAMILY CALLED FOR PT UPDATE. CODE GIVEN. UPDATE GIVEN. ANSWERED ALL QUESTIONS.
--- NOTE | 2018-09-23 21:41 | NUR ---
HS MEDS GIVEN PER GT. ASPIRATION USED TO VERIFY PLACEMENT. TOLERATED WELL.
--- NOTE | 2018-09-23 23:07 | NUR ---
REASSESSMENT COMPLETE. NO CHANGES NOTED IN PT CONDITION. REPOSITIONED FOR COMFORT. ORAL CARE PROVIDED. SAFETY MEASURES IN PLACE. CBIR.
[2018-09-24] VITALS (95 sets, daily range): BP systolic 68–106; BP diastolic 32–83
--- NOTE | 2018-09-24 01:52 | NUR ---
RT AT BEDSIDE. REPOSITIONED PT. ORAL CARE PROVIDED. TOLERATED WELL.
--- NOTE | 2018-09-24 03:21 | NUR ---
REASSESSMENT COMPLETE. NO CHANGES NOTED. REPOSITIONED ANF ORAL CARE PROVIDED. PT AWAKE AND ALERT. SAFETY MEASURES IN PLACE. CBIR.
[2018-09-24 04:40] LABS: BASOPHILS 0.5 % (0-2); EOSINOPHILS 2.9 % (0-7); HEMATOCRIT 29.7 % (42.0-54.0); HEMOGLOBIN 8.8 g/dL (13.5-17.5); LYMPHOCYTES 16.6 % (15-50); MCH 23.8 pg (26.0-34.0); MCHC 29.6 g/dL (31.0-37.0); MCV 80.3 fL (80.0-100.0); MONOCYTES 18.3 % (2-11); NEUTROPHILS 60.7 % (40-80); PLATELET COUNT 311 10x3/uL (130-400); RDW 21.5 % (11.5-14.5); WBC 4.2 10x3/uL (4.8-10.8)
[2018-09-24 04:52] LABS: ANION GAP 11.2 mmol/L (8-16); CALCIUM 7.8 mg/dL (8.5-10.1); CARBON DIOXIDE 26.8 mmol/L (21.0-32.0); CREATININE - SERUM 1.1 mg/dL (0.6-1.3); MAGNESIUM - SERUM 1.6 mg/dL (1.8-2.4); PHOSPHOROUS 3.7 mg/dL (2.5-4.9)
--- NOTE | 2018-09-24 05:13 | NUR ---
ELECTROLYTE PROTOCOL INITIATED. SEE LABS AND MAR FOR DETAILS
--- NOTE | 2018-09-24 08:03 | NUR ---
UP IN BED ON VENT WITH EYES OPEN AT THIS TIME. PT NOTED TO WIGGLE TOES WHEN ASKED TO. NO ACUTE DISTRESS NOTED. TURNED Q2H. ORAL CARE PROVIDED Q2H. WILL CONTINUE PLAN OF CARE.
--- NOTE | 2018-09-24 10:14 | NUR ---
NO ACUTE DISTRESS NOTED. NO CHANGE. VSS. WILL CONTINUE PLAN OF CARE.
--- NOTE | 2018-09-24 12:26 | CN ---
PATIENT NAME:PARESH SANCHEZ MEDICAL RECORD: [id number] : [birth year] LOCATION:[facility]ON[facility].2312 ADMIT DATE: 09/06/18 ACCOUNT: [id number] CONSULTING PHYSICIAN: NANCY ARZATE MD REFERRING PHYSICIAN: TRINIDAD GODFREY MD DATE OF CONSULTATION: 09/19/2018 HISTORY OF PRESENT ILLNESS: A 68-year-old gentleman with known history of coronary artery disease, has a history of cardiomyopathy with EF most recently 40% to 45%, status post pacemaker placement, admitted with cellulitis status post knee replacement. He has been having intermittent atrial fibrillation as well as hypotension. We are asked to see him concerning his cardiovascular status. PAST MEDICAL HISTORY: Includes; 1. History of hypertension. 2. Coronary artery disease as described above. 3. Cardiomyopathy. 4. Atrial fibrillation. 5. Diabetes mellitus. MEDICATIONS: Prior to admission typically include metformin 500 b.i.d., Protonix 40 every day, trazodone 50 at bedtime, Neurontin 100 t.i.d., diltiazem 90 t.i.d., carvedilol 3.125 b.i.d., Coumadin per scale. SOCIAL HISTORY: Unobtainable to obtain due to the patient factors. REVIEW OF SYSTEMS: Unobtainable to obtain due to the patient factors. ALLERGIES: None known. PHYSICAL EXAMINATION: GENERAL: Intubated and sedated, no acute distress. HEENT: Normocephalic, atraumatic. NECK: No bruits. HEART: Currently is regular rate at 72. LUNGS: Decreased breath sounds. ABDOMEN: Hypoactive bowel sounds. EXTREMITIES: 1-2+ edema. IMPRESSION: Intermittent atrial fibrillation, responded nicely to IV digoxin in addition to IV diltiazem. Continue this as maintenance. Further recommendations based on clinical course. TRANSINT:[id number] Voice Confirmation ID: [id number] DOCUMENT ID: [id number] NANCY ARZATE MD at 1226 CC: [id number] DICTATION DATE: 09/19/18 0847 TEAR DOWN MAN: 09/19/18 1044 [place] [address]
--- NOTE | 2018-09-24 12:47 | NUR ---
VISITORS AT BEDSIDE. NO ACUTE DISTRESS NOTED. PT OPENS EYES SPONTANEOUSLY AND WHEN SPOKEN TO. VSS. TURNED Q2H. ORAL CARE PROVIDED Q2H. WILL CONTINUE PLAN OF CARE.
--- NOTE | 2018-09-24 14:48 | NUR ---
NO ACUTE DISTRESS NOTED. NO CHANGE. VSS. PREM CARE/DICKSON CARE PROVIDED USING HIPICLENS. WILL CONTINUE PLAN OF CARE.
--- NOTE | 2018-09-24 15:04 | MORECARE ---
CASE MANAGEMENT DISCHARGE SUMMARY PATIENT: AJCKY SANCHEZ UNIT: [id number] ADM DATE: 09/06/18 AGE: 68 : 48 SEX: M ROOM/BED: D.2312 AUTHOR: JARRELL,DOC PHYSICIAN: REFERRING PHYSICIAN: TRINIDAD GODFREY MD DATE OF SERVICE: 09/24/18 Discharge Plan Patient Name: JACKY SANCHEZ Facility: [facility]:[place] : 1950 Planned Disposition: Home Anticipated Discharge Date: Discharge Date: Expected LOS: Initial Reviewer: [id number] Initial Review Date: 09/07/2018 Generated: 09/24/18 4:04 pm Comments DCP- Discharge Planning Updated by [id number]: Janna Abel on 09/24/18 2:[address] CM received order for LTACH eval. BRUCE via phone for [facility] in [facility] DCP- Discharge Planning Updated by [id number]: Janna Abel on 09/19/18 6:[address] CM spoke with long time family friend Juju Wright [phone]. She was very concerned that the patient doesn't have a medical POA. She did state that the patient has a step-son Jadiel Galloway [phone] that lives in [place] that is the patients financial POA. He has access to the patient's checking accounts. She was very concerned that if the patient that there aren't any arrangements made. She stated that the patient wanted to be cremated. CM explained that if something did happen that the crematory would take payment over the phone via credit card. CM will give pamphlet regarding crematory to Juju. CM will continue to follow and assist as needed with discharge planning / needs. DCP- Discharge Planning Updated by [id number]: Karina Oliva on 09/16/18 2:[address] Patient Name: JACKY SANCHEZ Admission Status: ER Accout number: [id number] Admission Date: 09-06-2018 : 1950 Admission Diagnosis:PAIN IN RIGHT KNEE Attending: TRINIDAD GODFREY Current LOS: 10 Anticipated DC Date: Planned Disposition: Home Primary Insurance: [employer] MEDICARE ADV Discharge Planning Comments: [facility] CAME TO [facility] AND THEY DO NOT TAKE WELL CARE MCR. PT PATIENT ACCORDING TO PT WILL NOT AT THIS TIME BE ABLE TO PARTICIPATE IN REHAB DUE TO RECENT DECLINE IN HEALTH. A RAPID RESPONSE WAS CALLED ON PT TODAY DUE TO DECLINE IN CONDITION. CM WILL DISCUSS WHEN PT IS AWAKE AND ALERT ENOUGH ABOUT THE OTHER OPTIONS LIKE HOSPICE HE MAY WANT TO CONSIDER WITH NEW DX OF LIVER CA. RESP PUT PT ON CONT BIPAP TODAY DUE TO LOW SATS. CM WILL CONT TO FOLLOW Salesperson Fashion Accessories: Karina Silvestreman DCP- Discharge Planning Updated by [id number]: Karina Oliva on 09/16/18 10:[address] Patient Name: JACKY SANCHEZ Admission Status: ER Accout number: [id number] Admission Date: 09-06-2018 : 1950 Admission Diagnosis:PAIN IN RIGHT KNEE Attending: TRINIDAD GODFREY Current LOS: 10 Anticipated DC Date: Planned Disposition: Home Primary Insurance: [facility] MEDICARE ADV Discharge Planning Comments: SPOKE TO PT ABOUT HIS DECLINE IN HEALTH AND OPTIONS FOR CARE AFTER DC. HE STATES HE HAS BEEN THINKING ABOUT THAT AND WANTED TO TRY [facility]. IMM AND POC SIGNED AND PLACED IN MEDICAL RECORD. ANTONIETA AT HAS BEEN CONTACTED ABOUT PT Salesperson Fashion Accessories: Karina Oliva DCP- Discharge Planning Updated by [id number]: Karina Oliva on 09/07/18 1:[address] Patient Name: JACKY SANCHEZ Admission Status: ER Accout number: [id number] Admission Date: 09-06-2018 : 1950 Admission Diagnosis: Attending: TRINIDAD GODFREY Current LOS: 1 Anticipated DC Date: Planned Disposition: Home Primary Insurance: [facility] MEDICARE ADV Discharge Planning Comments: CM met with patient about discharge planning. CM explained CM role and verbal consent was given to do dc assessment. Patient states his discharge plan is to return to home . States home environment is safe. Denies any discharge planning needs at this time. [facility] Duglas Morse [phone] will drive him home upon discharge. CM will continue to follow and assist as needed with discharge planning needs. Salesperson Fashion Accessories: Karina Pj DCPIA - Discharge Planning Initial Assessment Updated by [id number]: Karina Silvestreman on 09/07/18 2:18 pm * Is the patient Alert and Oriented? Yes * How many steps to enter\exit or inside your home? * PCP DR. Montes * Pharmacy [facility] * Preadmission Environment Home Alone * ADLs Independent * Equipment Walker Wheelchair * Other Equipment o2 machine that he has never had to use * List name and contact numbers for known caregivers / representatives who currently or will assist patient after discharge: Juju Chahal [phone] Jacky Sanchez [phone] Duglas Morse [phone] transport home * Verbal permission to speak to the caregivers and representatives has been obtained from the patient. N/A * Community resources currently utilized None * Additional services required to return to the preadmission environment? No * Can the patient safely return to the preadmission environment? Yes * Has this patient been hospitalized within the prior 30 days at any hospital? Yes Last DP export: 09/19/18 6:07 pm Patient Name: JACKY SANCHEZ Page 86913 at 1504 All edits/amendments must be made on the electronic document DICTATION DATE: 09/24/181502 PRINTING GRAY CLOTH TENDER: ADELA 09/24/18 150 RPT#: [id number] DC DATE: STATUS: ADM IN [facility] [address] [place] [address] END OF REPORT
--- NOTE | 2018-09-24 15:20 | MORECARE ---
CASE MANAGEMENT DISCHARGE SUMMARY PATIENT: JACKY SANCHEZ UNIT: [id number] ADM DATE: 09/06/18 AGE: 68 : 48 SEX: M ROOM/BED: D.2312 AUTHOR: JARRELL,DOC PHYSICIAN: REFERRING PHYSICIAN: TRINIDAD GODFREY MD DATE OF SERVICE: 09/24/18 Discharge Plan Patient Name: JACKY SANCHEZ Facility: [facility]:[place] : 1950 Planned Disposition: Home Anticipated Discharge Date: Discharge Date: Expected LOS: Initial Reviewer: [id number] Initial Review Date: 09/07/2018 Generated: 09/24/18 4:20 pm Comments DCP- Discharge Planning Updated by [email or web address]: Janna Abel on 09/24/18 2:[address] CM received order for LTACH eval. BRUCE via phone for [facility] in [place] per Jadiel Galloway step son. [facility]ma with [facility] notified of eval. Awaiting on [facility] for Auth to admit to Ltach. CM will continue to follow and assist with discharge plans / needs. DCP- Discharge Planning Updated by [id number]: Janna Abel on 09/19/18 6:[address] CM spoke with long time family friend Juju Wright [phone]. She was very concerned that the patient doesn't have a medical POA. She did state that the patient has a step-son Jadiel Galloway [phone] that lives in [place] that is the patients financial POA. He has access to the patient's checking accounts. She was very concerned that if the patient that there aren't any arrangements made. She stated that the patient wanted to be cremated. CM explained that if something did happen that the crematory would take payment over the phone via credit card. CM will give pamphlet regarding crematory to Juju. CM will continue to follow and assist as needed with discharge planning / needs. DCP- Discharge Planning Updated by [id number]: Karina Oliva on 09/16/18 2:[address] Patient Name: JACKY SANCHEZ Admission Status: ER Accout number: [id number] Admission Date: 09-06-2018 : 1950 Admission Diagnosis:PAIN IN RIGHT KNEE Attending: TRINIDAD GODFREY Current LOS: 10 Anticipated DC Date: Planned Disposition: Home Primary Insurance: [employer] MEDICARE ADV Discharge Planning Comments: [facility] CAME TO [facility] AND THEY DO NOT TAKE WELL CARE MCR. PT PATIENT ACCORDING TO PT WILL NOT AT THIS TIME BE ABLE TO PARTICIPATE IN REHAB DUE TO RECENT DECLINE IN HEALTH. A RAPID RESPONSE WAS CALLED ON PT TODAY DUE TO DECLINE IN CONDITION. CM WILL DISCUSS WHEN PT IS AWAKE AND ALERT ENOUGH ABOUT THE OTHER OPTIONS LIKE HOSPICE HE MAY WANT TO CONSIDER WITH NEW DX OF LIVER CA. RESP PUT PT ON CONT BIPAP TODAY DUE TO LOW SATS. CM WILL CONT TO FOLLOW Physical Therapist: Karina Oliva DCP- Discharge Planning Updated by [email or web address]: Kairna Oliva on 09/16/18 10:[address] Patient Name: JACKY SANCHEZ Admission Status: ER Accout number: [id number] Admission Date: 09-06-2018 : 1950 Admission Diagnosis:PAIN IN RIGHT KNEE Attending: TRINIDAD GODFREY Current LOS: 10 Anticipated DC Date: Planned Disposition: Home Primary Insurance: [employer] MEDICARE ADV Discharge Planning Comments: SPOKE TO PT ABOUT HIS DECLINE IN HEALTH AND OPTIONS FOR CARE AFTER DC. HE STATES HE HAS BEEN THINKING ABOUT THAT AND WANTED TO TRY [facility]. IMM AND POC SIGNED AND PLACED IN MEDICAL RECORD. ANTONIETA AT HAS BEEN CONTACTED ABOUT PT Physical Therapist: Karina Oliva DCP- Discharge Planning Updated by [id number]: Karina Oliva on 09/07/18 1:[address] Patient Name: JACKY SANCHEZ Admission Status: ER Accout number: [id number] Admission Date: 09-06-2018 : 1950 Admission Diagnosis: Attending: TRINIDAD GODFREY Current LOS: 1 Anticipated DC Date: Planned Disposition: Home Primary Insurance: [employer] MEDICARE ADV Discharge Planning Comments: CM met with patient about discharge planning. CM explained CM role and verbal consent was given to do dc assessment. Patient states his discharge plan is to return to home . States home environment is safe. Denies any discharge planning needs at this time. [facility] Duglas Lito [phone] will drive him home upon discharge. CM will continue to follow and assist as needed with discharge planning needs. Physical Therapist: Karina Oliva DCPIA - Discharge Planning Initial Assessment Updated by [email or web address]: Karina Silvestreman on 09/07/18 2:18 pm * Is the patient Alert and Oriented? Yes * How many steps to enter\exit or inside your home? * PCP DR. Montes * Pharmacy [facility] on [facility] * Preadmission Environment Home Alone * ADLs Independent * Equipment Walker Wheelchair * Other Equipment o2 machine that he has never had to use * List name and contact numbers for known caregivers / representatives who currently or will assist patient after discharge: Juju Chahal [phone] Jacky Sanchez [phone] Duglas Lito [phone] transport home * Verbal permission to speak to the caregivers and representatives has been obtained from the patient. N/A * Community resources currently utilized None * Additional services required to return to the preadmission environment? No * Can the patient safely return to the preadmission environment? Yes * Has this patient been hospitalized within the prior 30 days at any hospital? Yes Last DP export: 09/24/18 2:04 p Patient Name: JACKY SANCHEZ Page 08958 at 1520 All edits/amendments must be made on the electronic document DICTATION DATE: 09/24/18 1520 AUTOMOBILE BRAKE BONDER: ADELA 09/24/18 1520 RPT#: [id number] UT DATE: STATUS: ADM IN [facility] [address] [place] [address] END OF REPORT
--- NOTE | 2018-09-24 16:08 | NUR ---
VISITORS AT BEDSIDE. NO ACUTE DISTRESS NOTED. WILL CONTINUE PLAN OF CARE.
--- NOTE | 2018-09-24 18:09 | NUR ---
NO CHANGE. PT OPENS EYES WHEN SPOKEN TO, ABLE TO FOLLOW COMMANDS. NO ACUTE DISTRESS NOTED. WILL CONTINUE PLAN OF CARE.
--- NOTE | 2018-09-24 19:05 | NUR ---
BEDSIDE SHIFT REPORT GIVEN BY DEPARTING RN. PT AWAKE ON VENT WITH RESTRAINTS IN USE. ASSESSMENT COMPLETE. SEE FS FOR DETAILS. F/C DRAINING TO GRAVITY. LEFT CHEST WALL INFUSAPORT NOTED AND INFUSING MD ORDERED MEDS. REPOSITIONED. ORAL CARE PROVIDED.
--- NOTE | 2018-09-24 20:42 | NUR ---
HS MEDS GIVEN. CRUSHED AND PLACED IN G TUBE. TOLERATED WELL. O RESIDUAL NOTED.
--- NOTE | 2018-09-24 23:15 | NUR ---
ELECTROLYTE PROTOCOL INITAITED. SEE LAB RESULTS AND MAR FOR FULL DETAILS.
--- NOTE | 2018-09-24 23:57 | NUR ---
REASSESSMENT COMPLETE. NO CHANGES NOTED IN PT CONDITION. REPOSITIONED. ORAL CARE PROVIDED. VENT ALARMED. SUCTIONED. SAFETY MEASURES IN PLACE. CBIR.
[2018-09-25] VITALS (71 sets, daily range): BP systolic 73–106; BP diastolic 34–61
--- NOTE | 2018-09-25 03:04 | NUR ---
COMPLETE BED BATH GIVEN USING HIBICLENS SOLUTION IN WATER. HAIR SHAMPOOED. ORAL CARE PROVIDED. PREM CARE PROVIDED. DICKSON CARE PROVIDED. LINENS CHANGED. EKG LEADS CHANGED. BP CUFF REPLACED. RESTRAINTS OFF AT THIS TIME. SCD'S REPLACED WITH NEW SLEEVES. TOLERATED WELL. REASSESSMENT COMPLETE. NO NEW CHANGES NOTED. SAFETY MEASURES IN PLACE. WILL CONTINUE TO MONITOR RESTRAINT NEED.
[2018-09-25 04:44] LABS: INR 3.35 (0.85-1.17); PROTIME 33.1 SECONDS (11.6-15.0)
[2018-09-25 04:54] LABS: HEMATOCRIT 31.3 % (42.0-54.0); HEMOGLOBIN 9.3 g/dL (13.5-17.5); MCH 23.9 pg (26.0-34.0); MCHC 29.7 g/dL (31.0-37.0); MCV 80.5 fL (80.0-100.0); MEAN PLATELET VOLUME 9.1 fL (7.4-10.4); PLATELET COUNT 317 10x3/uL (130-400); RBC 3.89 10x6/uL (4.20-6.10); RDW 21.6 % (11.5-14.5); WBC 4.8 10x3/uL (4.8-10.8)
[2018-09-25 05:17] LABS: ANION GAP 11.2 mmol/L (8-16); CALCIUM 8.2 mg/dL (8.5-10.1); CARBON DIOXIDE 26.6 mmol/L (21.0-32.0); CREATININE - SERUM 1.2 mg/dL (0.6-1.3)
[2018-09-25 05:18] LABS: POTASSIUM - SERUM 3.8 mmol/L (3.5-5.1)
--- NOTE | 2018-09-25 07:00 | NUR ---
REC'D REPORT AND RESUMED CARE, ET TO [id number] AND SECURED, VSS AT THIS TIME, WITH KEO INFUSING, FENTANYL FUELS ENGINEER IN USE, OGT WITH PULMOCARE TF INFUSING AT 25 CC/HR, RESIDUAL CHECK 15 CC, RIGHT RADIAL RODDY WITH ARM BOARD IN PLACE, LINE ZEROED AND BP 94/34 WITH MAP OF 58, OTHER VSS, DICKSON TO GRAVITY WITH DARK CONCENTRATED DRAINAGE TO BAG, ASSESSMENT COMPLETED PER FLOWSHEET, REPOSITIONED TO BACK, ORAL CARE AND SUCTION COMPLETED
[2018-09-25 08:36] LABS: EOSINOPHILS 4 % (0-7); LYMPHOCYTES 22 % (15-50); MONOCYTES 17 % (2-11); NEUTROPHILS 55 % (40-80); PLATELET ESTIMATE NORMAL
--- NOTE | 2018-09-25 08:39 | NUR ---
Nutrition follow-up: Pt intubated, sedated Pulmocare continues @ 25 ml/hr; 50 ml H2O flush Q 4 hours Labs reviewed Wt: 392# Pt not meeting estimated energy needs with current TF regimen Recommed advancing TF to goal rate of 50 ml/hr to better meet est energy needs RDN following.
--- NOTE | 2018-09-25 09:00 | NUR ---
MORNING MEDS GIVEN PER JUL FLOWSHEET
--- NOTE | 2018-09-25 11:00 | NUR ---
CHARMAINE'D CALL FROM SERENA AT [facility] IN [place], APPLICATION FOR ACCEPTANCE STILL IN PRORGESS
--- NOTE | 2018-09-25 15:00 | NUR ---
NO ACUTE CHANGE FROM PREVIOUS ASSESSMENT, WILL CONTINIUE WITH POC
--- NOTE | 2018-09-25 16:00 | NUR ---
I AND O'S COMPLETED, PER [facility] REPORT CALLED TO MICA, FOR PENDING TRANSFER OF PATIENT TO THEIR FAILITY
--- NOTE | 2018-09-25 18:15 | NUR ---
EMT HERE FOR GLASS RIBBON MACHINE OPERATOR, RODDY REMOVED AND OGT FLUSHED AND CLAMPED, [facility] VIA BLOW UP MATTRESS, SYSTEM WITH PERSONNEL X4, NE BAG OF KEO HUNG FOR TRANSPORT, PATIENT BELONGINGS LEFT BEHIND, AND CREDIT CARDS AND MONEY THAT WAS RUBBER BANDED TOGETHER WAS IN DRAWER, CALLED ADMISSION TO HAVE LOCKED UP. INFO GIVEN TO NIGHT CHARGE NURSE WELL
--- NOTE | 2018-09-25 19:26 | MORECARE ---
CASE MANAGEMENT DISCHARGE SUMMARY PATIENT: JACKY SANCHEZ UNIT: [id number] ADM DATE: 09/06/18 AGE: 68 : 48 SEX: M ROOM/BED: D.2312 AUTHOR: JARRELL,DOC PHYSICIAN: REFERRING PHYSICIAN: TRINIDAD GODFREY MD DATE OF SERVICE: 09/25/18 Discharge Plan Patient Name: JACKY SANCHEZ Facility: [facility]:[place] : 1950 Planned Disposition: Home Anticipated Discharge Date: Discharge Date: Expected LOS: Initial Reviewer: [email or web address] Initial Review Date: 09/07/2018 Generated: 09/25/18 8:26 pm Comments DCP- Discharge Planning Updated by [id number]: Janna Abel on 09/25/18 6:[address] CM RECIEVED CALL FROM [facility] APPROVED AUTH AND THEY CAN TAKE PATIENT TODAY IF WE CAN ARRANGE TRANSPORT. [facility] THEY STATED THEY COULD BE HERE IN 30-45 MIN. THEN THEY CALLED BACK AND STATED THAT IT WOUD BE 1830 BEFORE THEY COULD VP MEDICAL PATIENT. CM CALLED [facility] TO SEE IF THIS WOULD BE ALRIGHT TO TRANSPORT THE PATIENT THAT LATE. [facility] AGREED FOR TRANSPORT. CM [facility] REGARDING PICKUP TIME. DCP- Discharge Planning Updated by [id number]: Janna Abel on 09/24/18 2:[address] CM received order for LTACH eval. BRUCE via phone for [facility] in [place] per Jadiel Galloway step son. Uma with [facility] notified of eval. Awaiting on [facility] for Auth to admit to Ltach. CM will continue to follow and assist with discharge plans / needs. DCP- Discharge Planning Updated by [email or web address]: Janna Abel on 09/19/18 6:[address] CM spoke with long time family friend Juju Wright [phone]. She was very concerned that the patient doesn't have a medical POA. She did state that the patient has a step-son Jadiel Galloway [phone] that lives in [place] that is the patients financial POA. He has access to the patient's checking accounts. She was very concerned that if the patient that there aren't any arrangements made. She stated that the patient wanted to be cremated. CM explained that if something did happen that the crematory would take payment over the phone via credit card. CM will give pamphlet regarding crematory to Juju. CM will continue to follow and assist as needed with discharge planning / needs. DCP- Discharge Planning Updated by [email or web address]: Karina Oliva on 09/16/18 2:[address] Patient Name: JACKY SANCHEZ Admission Status: ER Accout number: [id number] Admission Date: 09-06-2018 : 1950 Admission Diagnosis:PAIN IN RIGHT KNEE Attending: TRINIDAD GODFREY Current LOS: 10 Anticipated DC Date: Planned Disposition: Home Primary Insurance: [employer] MED[employer]ARE ADV Discharge Planning Comments: [facility] CAME TO [facility] AND THEY DO NOT TAKE WELL CARE MCR. PT PATIENT ACCORDING TO PT WILL NOT AT THIS TIME BE ABLE TO PARTICIPATE IN REHAB DUE TO RECENT DECLINE IN HEALTH. A RAPID RESPONSE WAS CALLED ON PT TODAY DUE TO DECLINE IN CONDITION. CM WILL DISCUSS WHEN PT IS AWAKE AND ALERT ENOUGH ABOUT THE OTHER OPTIONS LIKE HOSPICE HE MAY WANT TO CONSIDER WITH NEW DX OF LIVER CA. RESP PUT PT ON CONT BIPAP TODAY DUE TO LOW SATS. CM WILL CONT TO FOLLOW School Traffic Guard: Karina Silvestreman DCP- Discharge Planning Updated by [id number]: Karina Oliva on 09/16/18 10:[address] Patient Name: JACKY SANCHEZ Admission Status: ER Accout number: [id number] Admission Date: 09-06-2018 : 1950 Admission Diagnosis:PAIN IN RIGHT KNEE Attending: TRINIDAD GODFREY Current LOS: 10 Anticipated DC Date: Planned Disposition: Home Primary Insurance: [employer] ADV Discharge Planning Comments: SPOKE TO PT ABOUT HIS DECLINE IN HEALTH AND OPTIONS FOR CARE AFTER DC. HE STATES HE HAS BEEN THINKING ABOUT THAT AND WANTED TO TRY [facility]. IMM AND POC SIGNED AND PLACED IN MEDICAL RECORD. ANTONIETA AT HAS BEEN CONTACTED ABOUT PT School Traffic Guard: Karina Oliva DCP- Discharge Planning Updated by [email or web address]: Karina Oliva on 09/07/18 1:[address] Patient Name: JACKY SANCHEZ Admission Status: ER Accout number: [id number] Admission Date: 09-06-2018 : 1950 Admission Diagnosis: Attending: TRINIDAD GODFREY Current LOS: 1 Anticipated DC Date: Planned Disposition: Home Primary Insurance: [employer] ADV Discharge Planning Comments: CM met with patient about discharge planning. CM explained CM role and verbal consent was given to do dc assessment. Patient states his discharge plan is to return to home . States home environment is safe. Denies any discharge planning needs at this time. [facility] Duglas Morse [phone] will drive him home upon discharge. CM will continue to follow and assist as needed with discharge planning needs. School Traffic Guard: Karina Oliva DCPIA - Discharge Planning Initial Assessment Updated by [email or web address]: Karina Oliva on 09/07/18 2:18 pm * Is the patient Alert and Oriented? Yes * How many steps to enter\exit or inside your home? * PCP DR. Montes * Pharmacy [facility] on [facility] * Preadmission Environment Home Alone * ADLs Independent * Equipment Walker Wheelchair * Other Equipment o2 machine that he has never had to use * List name and contact numbers for known caregivers / representatives who currently or will assist patient after discharge: Juju Chahal [phone] Jacky Sanchez [phone] Duglas Morse [phone] transport home * Verbal permission to speak to the caregivers and representatives has been obtained from the patient. N/A * Community resources currently utilized None * Additional services required to return to the preadmission environment? No * Can the patient safely return to the preadmission environment? Yes * Has this patient been hospitalized within the prior 30 days at any hospital? Yes Last DP export: 09/24/18 2:20 p Patient Name: JACKY SANCHEZ Page 79082 at 1926 All edits/amendments must be made on the electronic document DICTATION DATE: 09/25/181925 ANESTHESIA ASSISTANT: ADELA 09/25/181925 RPT#: [id number] DC DATE: STATUS: ADM IN [facility] [address] [place] [address] END OF REPORT
--- NOTE | 2018-09-26 19:08 | MORECARE ---
CASE MANAGEMENT DISCHARGE SUMMARY PATIENT: JACKY SANCHEZ UNIT: [id number] ADM DATE: 09/06/18 AGE: 68 : 46 SEX: M ROOM/BED: D.2312 AUTHOR: JARRELL,DOC PHYSICIAN: REFERRING PHYSICIAN: TRINIDAD GODFREY MD DATE OF SERVICE: 09/26/18 Discharge Plan Patient Name: JACKY SANCHEZ Facility: [facility]:[place] : 1950 Planned Disposition: Home Anticipated Discharge Date: Discharge Date: 09/25/2018 Expected LOS: Initial Reviewer: [email or web address] Initial Review Date: 09/07/2018 Generated: 09/26/18 8:08 pm DCP- Discharge Planning Updated by [email or web address]: Janna Abel on 09/25/18 6:[address] CM RECIEVED CALL FROM [facility] APPROVED AUTH AND THEY CAN TAKE PATIENT TODAY IF WE CAN ARRANGE TRANSPORT. CM CONTACTED [employer] AND ORGINALLY THEY STATED THEY COULD BE HERE IN 30-45 MIN. 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 CM CALLED [facility] TO SEE IF THIS WOULD BE ALRIGHT TO TRANSPORT THE PATIENT THAT LATE. [facility] AGREED FOR TRANSPORT. [facility] REGARD[facility] PICKUP TIME. DCP- Discharge Planning Updated by [id number]: Janna Abel on 09/24/18 2:[address] CM received order for LTACH eval. BRUCE via phone for [facility] in [place] per Jadiel Galloway step son. Uma with [facility] notified of eval. Awaiting on [facility] for Auth to admit to Ltach. CM will continue to follow and assist with discharge plans / needs. DCP- Discharge Planning Updated by [id number]: Janna Abel on 09/19/18 6:[address] CM spoke with long time family friend Juju Wright [phone]. She was very concerned that the patient doesn't have a medical POA. She did state that the patient has a step-son Jadiel Galloway [phone] that lives in [place] that is the patients financial POA. He has access to the patient's checking accounts. She was very concerned that if the patient that there aren't any arrangements made. She stated that the patient wanted to be cremated. CM explained that if something did happen that the crematory would take payment over the phone via credit card. CM will give pamphlet regarding crematory to Juju. CM will continue to follow and assist as needed with discharge planning / needs. DCP- Discharge Planning Updated by [email or web address]: Karina Oliva on 09/16/18 2:[address] Patient Name: JACKY SANCHEZ Admission Status: ER Accout number: [id number] Admission Date: 09-06-2018 : 1950 Admission Diagnosis:PAIN IN RIGHT KNEE Attending: TRINIDAD GODFREY Current LOS: 10 Anticipated DC Date: Planned Disposition: Home Primary Insurance: [employer] ADV Discharge Planning Comments: GONZALO MOSHER CAME TO [facility] AND THEY DO NOT TAKE WE[employer] MCR. PT PATIENT ACCORDING TO PT WILL NOT AT THIS TIME BE ABLE TO PARTICIPATE IN REHAB DUE TO RECENT DECLINE IN HEALTH. A RAPID RESPONSE WAS CALLED ON PT TODAY DUE TO DECLINE IN CONDITION. CM WILL DISCUSS WHEN PT IS AWAKE AND ALERT ENOUGH ABOUT THE OTHER OPTIONS LIKE HOSPICE HE MAY WANT TO CONSIDER WITH NEW DX OF LIVER CA. RESP PUT PT ON CONT BIPAP TODAY DUE TO LOW SATS. CM WILL CONT TO FOLLOW Ham Stringer: Karina Oliva DCP- Discharge Planning Updated by [email or web address]: Karina Oliva on 09/16/18 10:[address] Patient Name: JACKY SANCHEZ Admission Status: ER Accout number: [id number] Admission Date: 09-06-2018 : 1950 Admission Diagnosis:PAIN IN RIGHT KNEE Attending: TRINIDAD GODFREY Current LOS: 10 Anticipated DC Date: Planned Disposition: Home Primary Insurance: [employer] MED[employer]ARE ADV Discharge Planning Comments: SPOKE TO PT ABOUT HIS DECLINE IN HEALTH AND OPTIONS FOR CARE AFTER DC. HE STATES HE HAS BEEN THINKING ABOUT THAT AND WANTED TO TRY [facility]. IMM AND POC SIGNED AND PLACED IN MEDICAL RECORD. ANTONIETA AT HAS BEEN CONTACTED ABOUT PT Ham Stringer: Karina Oliva DCP- Discharge Planning Updated by [email or web address]: Karina Oliva on 09/07/18 1:[address] Patient Name: JACKY SANCHEZ Admission Status: ER Accout number: [id number] Admission Date: 09-06-2018 : 1950 Admission Diagnosis: Attending: TRINIDAD GODFREY Current LOS: 1 Anticipated DC Date: Planned Disposition: Home Primary Insurance: [employer] MEDICARE ADV Discharge Planning Comments: CM met with patient about discharge planning. CM explained CM role and verbal consent was given to do dc assessment. Patient states his discharge plan is to return to home . States home environment is safe. Denies any discharge planning needs at this time. [facility] Duglas Morse [phone] will drive him home upon discharge. CM will continue to follow and assist as needed with discharge planning needs. Ham Stringer: Karina Oliva DCPIA - Discharge Planning Initial Assessment Updated by [email or web address]: Karina Oliva on 09/07/18 2:18 pm * Is the patient Alert and Oriented? Yes * How many steps to enter\exit or inside your home? * PCP DR. Montes * Pharmacy [facility] * Preadmission Environment Home Alone * ADLs Independent * Equipment Walker Wheelchair * Other Equipment o2 machine that he has never had to use * List name and contact numbers for known caregivers / representatives who currently or will assist patient after discharge: Juju Chahal [phone] Jacky Sanchez [phone] Duglas Morse [phone] transport home * Verbal permission to speak to the caregivers and representatives has been obtained from the patient. N/A * Community resources currently utilized None * Additional services required to return to the preadmission environment? No * Can the patient safely return to the preadmission environment? Yes * Has this patient been hospitalized within the prior 30 days at any hospital? Yes Last DP export: 09/25/18 6:26 p Patient Name: JACKY SANCHEZ Page [id number] at 1908 All edits/amendments must be made on the electronic document DICTATION DATE: 09/26/181907 PATROL JUDGE: ADELA 09/26/181907 RPT#: [id number] DC DATE:09/25/18 STATUS: DIS IN [facility] [address] [place] [address] END OF REPORT
== END 2018-09-25 18:35 | disposition short-term general hospital (02) | DRG 870 ==
LOC: D.ER 17:53 → D.ICU 22:14 → D.M3 22:14 → D.ICU 09-16 15:47
PROVIDERS: Emergency Medicine; Family Medicine; Family Medicine Adult Medicine; Internal Medicine Pulmonary Disease; Orthopaedic Surgery; ADMIT Internal Medicine Nephrology; ATTEND Internal Medicine Nephrology
PROC: 0BH17EZ Insertion of Endotracheal Airway into Trachea, Via Natural or Artificial Opening (ICD-10-PCS; principal; 2018-09-16)
PROC: 5A1955Z Respiratory Ventilation, Greater than 96 Consecutive Hours (ICD-10-PCS; 2018-09-16)
DX: A41.9 Sepsis, unspecified organism (principal); G93.41 Metabolic encephalopathy; J96.22 Acute and chronic respiratory failure with hypercapnia; J96.21 Acute and chronic respiratory failure with hypoxia; J18.9 Pneumonia, unspecified organism; N39.0 Urinary tract infection, site not specified; L03.115 Cellulitis of right lower limb; I50.22 Chronic systolic (congestive) heart failure; C22.1 Intrahepatic bile duct carcinoma; G93.49 Other encephalopathy; B95.2 Enterococcus as the cause of diseases classified elsewhere; Z16.21 Resistance to vancomycin; D50.9 Iron deficiency anemia, unspecified; E87.6 Hypokalemia; I11.0 Hypertensive heart disease with heart failure; I25.10 Atherosclerotic heart disease of native coronary artery without angina pectoris; Z86.73 Personal history of transient ischemic attack (TIA), and cerebral infarction without residual deficits; E66.01 Morbid (severe) obesity due to excess calories; N40.0 Benign prostatic hyperplasia without lower urinary tract symptoms; E78.5 Hyperlipidemia, unspecified; Y95 Nosocomial condition